=== PATIENT | female | born 1955 | race Caucasian/White ===

== ENCOUNTER 2016-07-15 14:02 | Emergency (ER) | payer OTHER ==
[~2016-07-15] VITALS: Ht 157.5 cm; Wt 45.0 kg
[~2016-07-15 14:02] MED LIST: BENT20TA PO; BENZ100 PO; DIAZ10TA PO; FURO20TA PO; LOMO PO; LOVA20TA PO; NITR0.4S SL; OXYC1SOL5 PO; POTA-267 PO
[2016-07-15 14:05] VITALS: BP 111/85; PULSE 93; RESP 12; TEMP 98.1; O2SAT 96
== END 2016-07-15 23:13 | disposition left against medical advice (07) ==
LOC: NED 14:02
DX: R68.89 Other general symptoms and signs (principal); Z53.21 Procedure and treatment not carried out due to patient leaving prior to being seen by health care provider
CPT/HCPCS: 99281

== ENCOUNTER 2016-07-22 15:54 | Emergency (ER) | payer OTHER ==
[~2016-07-22] VITALS: Ht 157.5 cm; Wt 40.0 kg
[2016-07-22 15:57] VITALS: BP 106/60; PULSE 93; RESP 14; TEMP 97.5; O2SAT 95
[2016-07-22] MEDS ORDERED: ACETAMINOPHEN/HYDROcodone 325 MG/10 MG TAB PO ONE (19:15)
[2016-07-22] MEDS ORDERED: SODIUM CHLORIDE 0.9% FLUSH 5 ML FLUSH IVF PRN (19:15)
--- NOTE | 2016-07-22 19:17 | PD ---
HPI Chief Complaint: General Weakness Time Seen by Provider: 19:02 Travel History International Travel<30 days: No Contact w/Intl Traveler<30days: No Traveled to known affect area: No History of Present Illness HPI This is a 60-year-old female who presents today from home with complaints of generalized malaise and shortness breath 1 month. The patient has a history of chronic back pain, hyperlipidemia, COPD. She states that she is also complaining of severe back pain. She reports that she has not seen her pain management doctor because she chose to go to her primary care physician instead of her pain management physician. She states that she's not had her hydrocodone for several days. When asked about her shortness of breath, patient reports that she can only walk a few feet before feeling as though she cannot pass out. She denies any chest pain, chest pressure. She does report that she's had loose stools times several days. She states that she's been taking Lomotil for this. She denies any dysuria, urgency, frequency. She states her urine output has been normal. She does report that her diet is lacking and she does not feel as though she needs or wants to eat. He does report nausea although denies any vomiting. The patient does report a 1 year history of weight loss and reports one year ago she was a size 9 and now she is aside 0. PFSH Past Medical History Arthritis: Yes Asthma: No Blood Disorders: No Heart Rhythm Problems: Yes (TACHYCARDIA) Cancer: No Cardiovascular Problems: Yes High Cholesterol: No Chemotherapy: No Chest Pain: Yes Congestive Heart Failure: No COPD: No Endocrine: No Gastrointestinal Disorders: Yes (ibs colitis) GERD: No Genitourinary: No Hepatitis: No Hiatal Hernia: No Hypertension: Yes Immune Disorder: No Kidney Stones: No Musculoskeletal: Yes Neurologic: No Psychiatric: No Respiratory: Yes Myocardial Infarction: No Radiation Therapy: No Renal Failure: No Sleep Apnea: No Ulcer: No Past Surgical History Abdominal Surgery: Yes (HYSTERECTOMY) AICD: No Arteriovenous Shunt: No Cardiac Surgery: No Cholecystectomy: Yes Ear Surgery: No Endocrine Surgery: No Eye Surgery: No Genitourinary Surgery: No Gynecologic Surgery: Yes Hysterectomy: Yes Insulin Pump: No Joint Replacement: No Oral Surgery: No Pacemaker: No Thoracic Surgery: Yes (3 LUNG SURGERIES) Other Surgery: Yes ("BACK SURGERY" X 3) Social History Alcohol Use: No Tobacco Use: Yes (TWO PACKS A DAY) Substance Use: No Allergies-Medications (Allergen,Severity, Reaction): Coded Allergies: Morphine (Verified Allergy, Severe, Fatigue, 07/22/16) Reported Meds & Prescriptions Reported Meds & Active Scripts Active Lortab (Hydrocodone-Acetaminophen) 10-325 Mg Tab 1 Tab PO Q6H PRN Reported Mirtazapine 30 Mg Tab 30 Mg PO HS Advair Diskus Inh (Fluticasone-Salmeterol Inh) 100-50 Mcg/Blist Aer 1 Puff INH BID Rinse mouth after use. Simvastatin 20 Mg Tab 20 Mg PO DAILY Diazepam 10 Mg Tab 10 Mg PO HS PRN Nitrostat SL (Nitroglycerin) 0.4 Mg Subl 0.4 Mg SL DIRECTED PRN 1 tablet under the tongue as needed for chest pain. Repeat every 5 minutes for a total of 3 DOSES or call 911 if NO relief. Alendronate (Alendronate Sodium) 70 Mg Tab 70 Mg PO Q7D Hydrocodone-Acetaminophen 10-325 mg Tab 1 Tab PO Q4H PRN Tizanidine (Tizanidine HCl) 4 Mg Cap 4 Mg PO TID Diphenoxylate-Atropine 2.5-0.025 Mg Tab 1 Tab PO Q6H PRN Oscal 500/200 D-3 (Calcium Carbonate-Vitamin D) 500-200 Mg-Unit Tab 1 Tab PO BID Trazodone (Trazodone HCl) 300 Mg Tab 300 Mg PO HS Review of Systems Except as stated in HPI: all other systems reviewed are Neg General / Constitutional: No: Fever, Chills HENT: Positive: Lightheadedness, No: Headaches Cardiovascular: Positive: Tachycardia (reports), No: Chest Pain or Discomfort , Palpitations Respiratory: Positive: Shortness of Breath, No: Cough, Wheezing Gastrointestinal: Positive: Nausea, No: Vomiting, Abdominal Pain Genitourinary: No: Urgency, Frequency, Dysuria Musculoskeletal: Positive: Weakness (generalized), Pain (chronic back pain) Skin: No Rash, No Itching Neurologic: Positive: Weakness (and relies), No: Syncope (although feels as though she is in the past), Headache, Change in Mentation Psychiatric: Positive: Anxiety (history of) Physical Exam Narrative GENERAL: Thin appearing female in no acute respiratory distress. SKIN: Warm and dry. HEAD: Atraumatic. Normocephalic. EYES: No scleral icterus. No injection or drainage. ENT: Mucous membranes pink and moist. NECK: Trachea midline. No JVD. CARDIOVASCULAR: Rate in the 90s. No murmurs gallops or rubs appreciated RESPIRATORY: Fine crackles heard at the left base. No wheezes. GASTROINTESTINAL: Abdomen soft, non-tender, nondistended. Patient has mild tenderness to deep palpation in her left lower quadrant. No rebound or true guarding. MUSCULOSKELETAL: No obvious deformities. No edema. NEUROLOGICAL: Awake and alert. No obvious cranial nerve deficits. Motor grossly within normal limits. Normal speech. Data Data Last Documented VS Vital Signs Date Time Temp Pulse Resp B/P Pulse Ox O2 Delivery O2 Flow Rate FiO2 07/22/16: 97 Room Air 07/22/16:23 97.9 80 18 118/58 Orders Complete Blood Count With Diff (07/22/16 19:03) Comprehensive Metabolic Panel (07/22/16 19:) Ckmb (Isoenzyme) Profile (07/22/16 19:03) Troponin I (07/22/16 19:03) Arterial Blood Gas (Abg) (07/22/16 19:03) Urinalysis - C+S If Indicated (07/22/16 19:03) Iv Access Insert/Monitor (07/22/16 19:03) Electrocardiogram (07/22/16 19:03) Ecg Monitoring (07/22/16 19:03) Oximetry (07/22/16 19:03) Oxygen Administration (07/22/16 19:03) Chest, Pa & Lat (07/22/16 19:03) Sodium Chloride 0.9% Flush (Ns Flush) (07/22/16 19:15) Acetamin-Hydrocod 325-10 Mg ([place] 10-32 (07/22/16 19:15) Resp Lab Draw Arterial Punctur (07/22/16 ) Labs Laboratory Tests Test 07/22/16 07/22/16 07/22/16 19:25 19:35 20:20 Blood Gas Puncture Site LT BRACHIAL Blood Gas Patient Temperature 98.6 Blood Gas HCO3 23 mmol/L Blood Gas Base Excess -0.7 mmol/L Blood Gas Oxygen Saturation 91 % Arterial Blood pH 7.45 Arterial Blood Partial 33 mmHg Pressure CO2 Arterial Blood Partial 76 mmHG Pressure O2 Arterial Blood Oxygen Content 16.9 Vol % Arterial Blood 3.6 % Carboxyhemoglobin Arterial Blood Methemoglobin 2.0 % Blood Gas Hemoglobin 13.3 G/DL Oxygen Delivery Device ROOM AIR Blood Gas Inspired Oxygen 21 % White Blood Count 10.0 TH/MM3 Red Blood Count 4.11 MIL/MM3 Hemoglobin 12.9 GM/DL Hematocrit 37.2 % Mean Corpuscular Volume 90.4 FL Mean Corpuscular Hemoglobin 31.3 PG Mean Corpuscular Hemoglobin 34.6 % Concent Red Cell Distribution Width 14.6 % Platelet Count 345 TH/MM3 Mean Platelet Volume 7.7 FL Neutrophils (%) (Auto) 61.2 % Lymphocytes (%) (Auto) 29.7 % Monocytes (%) (Auto) 6.5 % Eosinophils (%) (Auto) 1.8 % Basophils (%) (Auto) 0.8 % Neutrophils # (Auto) 6.2 TH/MM3 Lymphocytes # (Auto) 3.0 TH/MM3 Monocytes # (Auto) 0.7 TH/MM3 Eosinophils # (Auto) 0.2 TH/MM3 Basophils # (Auto) 0.1 TH/MM3 CBC Comment DIFF FINAL Differential Comment Sodium Level 137 MEQ/L Potassium Level 3.8 MEQ/L Chloride Level 106 MEQ/L Carbon Dioxide Level 23.6 MEQ/L Anion Gap 7 MEQ/L Blood Urea Nitrogen 12 MG/DL Creatinine 0.61 MG/DL Estimat Glomerular Filtration 100 ML/MIN Rate Random Glucose 93 MG/DL Calcium Level 8.4 MG/DL Total Bilirubin 0.2 MG/DL Aspartate Amino Transf 14 U/L (AST/SGOT) Alanine Aminotransferase 11 U/L (ALT/SGPT) Alkaline Phosphatase 80 U/L Total Creatine Kinase 46 U/L Troponin I LESS THAN 0.02 NG/ML Total Protein 6.7 GM/DL Albumin 2.7 GM/DL Urine Color YELLOW Urine Turbidity CLEAR Urine pH 5.5 Urine Specific [place] 1.033 Urine Protein NEG mg/dL Urine Glucose (UA) NEG mg/dL Urine Ketones 10 mg/dL Urine Occult Blood NEG Urine Nitrite NEG Urine Bilirubin NEG Urine Urobilinogen 2.0 MG/DL Urine Leukocyte Esterase NEG Urine RBC LESS THAN 1 /hpf Urine WBC 1 /hpf Urine Squamous Epithelial <1 /hpf Cells Urine Hyaline Casts 1 /lpf Urine Mucus FEW /lpf Microscopic Urinalysis Comment CULT NOT INDICATED MDM Medical Decision Making Medical Screen Exam Complete: Yes Emergency Medical Condition: Yes Differential Diagnosis UTI versus pneumonia versus COPD exacerbation Narrative Course 60-year-old female with history of COPD, presents here with complaints of large amount also over one year and general malaise and mild shortness of breath over the last week. The patient denies any fevers, chills. The patient is nontoxic- appearing on my examination. Laboratory tests are within normal limits. Chest x-ray shows evidence of old disease that is stable from previous x-rays. The patient is nontoxic-appearing on my examination. She is seen by her primary care physician who is in the process of ordering some outpatient tests including carotid ultrasounds and cardiac evaluation. At this point the patient is nontoxic and does not appear to need any type of admission or observation. She has been off of her pain medicines for several days and I've told her that I will write her prescription for 10 of her Lortab tens. She is to follow up with her primary care physician within one to 2 days. Diagnosis Primary Impression: COPD (chronic obstructive pulmonary disease) Additional Impressions: Abnormal weight loss Chronic pain syndrome Patient Instructions: Narcotic given in the ED Additional Instructions: Follow up with her primary care physician for further testing including your reported weight loss. Return if fevers, chills, shortness of breath, or anything else that concerns you. Med/Other Pt SpecificInfo: Prescription(s) given Scripts Hydrocodone-Acetaminophen (Lortab)10-325 Mg Tab1 Tab PO Q6H PRN (PAIN) #10 TAB Ref 0 Prov:Daniele Martin MD 07/22/16 Disposition: 01 DISCHARGE HOME Condition: Stable Daniele Martin MD Jul 22, 2016 19:17
[2016-07-22 19:23] VITALS: BP 118/58; PULSE 80; RESP 18; TEMP 97.9; O2SAT 97; O2SAT 99
[2016-07-22 19:40] LABS: BLOOD GAS BASE EXCESS -0.7 mmol/L (-2-2); BLOOD GAS CARBOXYHEMOGLOBIN 3.6 % (0-4); BLOOD GAS HCO3 23 mmol/L (22-26); BLOOD GAS O2 HGB SATURATION 91 % (90-100); BLOOD GAS OXYGEN CONTENT 16.9 Vol % (12.0-20.0); BLOOD GAS PCO2 33 mmHg (38-42); BLOOD GAS PO2 76 mmHG (61-120); BLOOD GAS TOTAL HGB 13.3 G/DL (12.0-16.0); CRITICAL VALUE NO; DRAW SITE LT BRACHIAL; FIO2 21 %; NUMBER OF ARTERIAL PUNCTURES 1; OXYGEN DEVICE ROOM AIR; STAT YES; TEMP CORR TO 98.6
[2016-07-22 19:56] LABS: AUTOMATED NEUTROPHIL # 6.2 TH/MM3 (1.8-7.7); BASOPHIL # 0.1 TH/MM3 (0-0.2); BASOPHIL % 0.8 % (0.0-2.0); EOSINOPHIL # 0.2 TH/MM3 (0-0.4); EOSINOPHIL % 1.8 % (0.0-4.0); HEMATOCRIT 37.2 % (35.0-46.0); HEMO FLAGS DIFF FINAL; LYMPH % 29.7 % (9.0-44.0); MEAN CELL VOLUME 90.4 FL (80.0-100.0); MEAN CORPUSCULAR HEMOGLOBIN 31.3 PG (27.0-34.0); MEAN CORPUSCULAR HGB CONC 34.6 % (32.0-36.0); MONO % 6.5 % (0.0-8.0); NEUT % 61.2 % (16.0-70.0); PLATELET COUNT 345 TH/MM3 (150-450); RED BLOOD COUNT 4.11 MIL/MM3 (4.00-5.30); RED CELL DISTRIBUTION WIDTH 14.6 % (11.6-17.2)
[2016-07-22] MEDS ORDERED: DIPH2.5T14 PO (20:08)
[2016-07-22] MEDS ORDERED: OSCA200T PO (20:08)
[2016-07-22] MEDS ORDERED: TRAZ300T2 PO (20:08)
[2016-07-22] MEDS ORDERED: HYDR-3583 PO (20:09)
[2016-07-22] MEDS ORDERED: ALEN1TAB48 PO (20:09)
[2016-07-22] MEDS ORDERED: TIZA4CAP3 PO (20:09)
[2016-07-22] MEDS ORDERED: NITR0.4S SL (20:10)
[2016-07-22] MEDS ORDERED: SIMV20TA PO (20:11)
[2016-07-22] MEDS ORDERED: ADVA100A INH (20:11)
[2016-07-22] MEDS ORDERED: DIAZ10TA PO (20:11)
[2016-07-22] MEDS ORDERED: MIRT30TA PO (20:12)
--- NOTE | 2016-07-22 20:12 | RADRPT ---
EXAM DATE/TIME: 07/22/2016 19:50 [facility] COMPARISON: CHEST PA & LAT, July 20, 2013, 12:52. INDICATIONS : Shortness of breath, weakness, and chest pain. MEDICAL HISTORY : Hypertension. Chronic obstructive pulmonary disease. History of pneumothorax. Emphysema. SURGICAL HISTORY : Mitral valve prolapse. Bilateral upper lobe removal. ENCOUNTER: Initial ACUITY: 1 day PAIN SCORE: 10/10 LOCATION: Left chest FINDINGS: Lung willi are seen in the upper lungs bilaterally. There continues to be increased density in the right upper lung likely related to volume loss and pleural fluid following the left upper lung surge ry. There is chronic interstitial disease at the mid and lower lungs bilaterally. There is minimal b lunting of the right costophrenic angle. This appearance is unchanged. A significant effusion is not clearly identified. The heart size is normal. There continue to be leads seen over the midthoracic spine. Clips are seen in the upper abdomen. CONCLUSION: Stable changes with chronic interstitial disease and scarring in the mid and lower zoie ngs and lung willi in the upper lungs and volume loss with pleural fluid over the left apex. All t hese findings are stable. A new or acute abnormality is not seen. Guero Anne MD on July 22, 2016 at 20:00 Board Certified Radiologist. This report was verified electronically.
[2016-07-22 20:31] LABS: ALKALINE PHOSPHATASE 80 U/L (45-117); ALT (GPT) 11 U/L (10-53); ANION GAP 7 MEQ/L (5-15); AST (GOT) 14 U/L (15-37); BICARBONATE 23.6 MEQ/L (21.0-32.0); BLOOD UREA NITROGEN 12 MG/DL (7-18); CHLORIDE 106 MEQ/L (98-107); CREATINE KINASE 46 U/L (26-192); GLOMERULAR FILTRATION RATE 100 ML/MIN (>89); POTASSIUM 3.8 MEQ/L (3.5-5.1); SODIUM (NA) 137 MEQ/L (136-145); TOTAL BILIRUBIN ADULT 0.2 MG/DL (0.2-1.0)
[2016-07-22 20:46] LABS: BLOOD, URINE NEG (NEG); COMMENT (UR) CULT NOT INDICATED; CULTURE IF INDICATED CULT NOT INDICATED; GLUCOSE,URINE NEG (NEG); HYALINE CAST, URINE 1 /lpf (RARE); KETONE, URINE 10 mg/dL (NEG); MUCUS URINE FEW /lpf (OCC); NITRITE,URINE NEG (NEG); PH, URINE 5.5 (5.0-8.5); SQUAMOUS EPITHELIAL CELL URINE <1 /hpf (0-5); URINE COLOR YELLOW (YELLW/STRAW)
[2016-07-22] MEDS ORDERED: HYDR-3535 PO (21:39)
--- NOTE | 2016-07-23 08:42 | EKG ---
Date Performed: 07/22/2016 Time Performed: 19:20:39 PTAGE: 60 years EKG: Sinus rhythm WITH SINUS ARRHYTHMIA WITH SHORT NH INTERVAL BORDERLINE RIGHT AXIS DEVIATION BORDERLINE ECG PREVIOUS TRACING : 09/16/2005 07.04 DOCTOR: Kiet Flores Interpretating Date/Time 07/23/2016 08:39:01
== END 2016-07-22 22:13 | disposition home or self-care (01) ==
LOC: NEPE 15:54
DX: J44.9 Chronic obstructive pulmonary disease, unspecified (principal); R63.4 Abnormal weight loss; G89.4 Chronic pain syndrome; E78.5 Hyperlipidemia, unspecified; I49.8 Other specified cardiac arrhythmias; I10 Essential (primary) hypertension; F17.210 Nicotine dependence, cigarettes, uncomplicated
CPT/HCPCS: 36600; 71020; 80053; 81001; 82550; 82805; 84484; 85025; 93005

== ENCOUNTER → 2016-10-09 | Day surgery (SDC) | payer OTHER ==
[~2016-10-09] VITALS: Ht 157.5 cm; Wt 47.3 kg
[~2016-10-09] MED LIST changes: +ADVA100A INH; +ALEN1TAB48 PO; -BENT20TA PO; -BENZ100 PO; +CHLORHEXIDINE GLUCONATE 2 % 1 PACK (2 CLOTHS) TOPICAL PRN; +DIPH2.5T14 PO; +EPINEPHrine HCL (1:1000) 1 MG/ML VIAL ONE; -FURO20TA PO; +HYDR-3535 PO; +INSULIN HUMAN REGULAR 1,000 UNITS/10 ML VIAL SQ PRN; +LACTATED RINGER'S 1000 ML IV PRN; +LIDOCAINE HCL 2% 50 ML VIAL ONE; -LOMO PO; -LOVA20TA PO; +METOPROLOL TARTRATE 25 MG TAB PO PRN; +MIRT30TA PO; +OSCA200T PO; -OXYC1SOL5 PO; -POTA-267 PO; +POVIDONE IODINE 5% (ANTISEPSIS KIT) 4 APPLICATIONS EACH NARE PRN; +RESP: ALBUTEROL 2.5 MG/3 ML NEB (SCH) INH; +RESP: LIDOCAINE HCL 4% TOPICAL 4 ML KIT NEB NEB SCH; +SIMV20TA PO; +SODIUM CHLORID 0.9% 500 ML IV PRN; +SODIUM CHLORIDE 0.9% 20 ML VIAL ONE; +TIZA4CAP3 PO; +TRAZ300T2 PO
[2016-10-09 05:35] VITALS: BP 113/67; PULSE 104; RESP 16; TEMP 99; O2SAT 96
[2016-10-09 07:04] LABS: APTT (PATIENT) 28.3 SEC (24.3-30.1); INTERNATIONAL NORMALIZED RATIO 0.9 RATIO; PROTHROMBIN TIME - PATIENT 10.2 SEC (9.8-11.6)
[2016-10-09 07:13] LABS: AUTOMATED NEUTROPHIL # 6.6 TH/MM3 (1.8-7.7); BASOPHIL # 0.1 TH/MM3 (0-0.2); BASOPHIL % 0.6 % (0.0-2.0); EOSINOPHIL # 0.2 TH/MM3 (0-0.4); EOSINOPHIL % 1.6 % (0.0-4.0); HEMATOCRIT 42.7 % (35.0-46.0); HEMO FLAGS DIFF FINAL; LYMPHOCYTE # 2.3 TH/MM3 (1.0-4.8); MEAN CELL VOLUME 89.3 FL (80.0-100.0); MEAN CORPUSCULAR HEMOGLOBIN 30.1 PG (27.0-34.0); MEAN CORPUSCULAR HGB CONC 33.7 % (32.0-36.0); MONO % 8.1 % (0.0-8.0); NEUT % 66.7 % (16.0-70.0); PLATELET COUNT 325 TH/MM3 (150-450); RED BLOOD COUNT 4.78 MIL/MM3 (4.00-5.30); RED CELL DISTRIBUTION WIDTH 14.7 % (11.6-17.2); WHITE BLOOD COUNT 9.9 TH/MM3 (4.0-11.0)
[2016-10-09 07:25] VITALS: BP 104/63; PULSE 80; RESP 16; TEMP 98.5; O2SAT 94
--- NOTE | 2016-10-09 15:23 | EKG ---
Date Performed: 10/09/2016 Time Performed: 06:15:24 PTAGE: 60 years EKG: Sinus rhythm BORDERLINE RIGHT AXIS DEVIATION LOW QRS VOLTAGE IN PRECORDIAL LEADS BORDERLINE ECG PREVIOUS TRACING : 07/22/2016 19.20 DOCTOR: Yuval Lovell Interpretating Date/Time 10/09/2016 15:21:40
== END | disposition home or self-care (01) ==
LOC: HSDC 05:30
PROVIDERS: ATTEND Internal Medicine Sleep Medicine
DX: J98.4 Other disorders of lung (principal); Z01.818 Encounter for other preprocedural examination; Z01.810 Encounter for preprocedural cardiovascular examination; Z53.09 Procedure and treatment not carried out because of other contraindication
CPT/HCPCS: 85025; 85610; 85730; 93005; G0463; 99211; J0171

== ENCOUNTER 2018-01-18 10:25 | Inpatient (IN) ==
[2018-01-18] MEDS ORDERED: Sod Chloride 0.9% Inj 1,000 ML IV.SIG ONE (10:58)
[2018-01-18] MEDS ORDERED: MethylPREDNISolone Sod Succinate Inj 125 MG/2 ML Vial IV.PUSH ONE (10:59)
--- NOTE | 2018-01-18 11:12 | ED ---
HPI General Chief Complaint: Fever Stated Complaint: fever/blood pressure Time Seen by Provider: 01/18/18 10:50 Source: patient Limitations: no limitations History of Present Illness HPI Narrative: Patient is a 62-year-old female who presents to the ER for evaluation of fever with shortness of breath. As per patient, she is currently being worked up for lung cancer with Dr. Goyal. Reports that she was NPO last night for her bronchoscopy with biopsies this morning. After her bronchoscopy, she was febrile and hypotensive. Reports that her temperature went up to 102.2. Patient was not given any anticoagulants. Patient reports that she has had a cough which is productive and she is bringing up thick yellow mucus. Patient is a tobacco smoker, patient was sent to the emergency room for possible admission to the hospital for evaluation of possible pneumonia. Patient currently complains of shortness of breath. Denies any chest pain. Related Data Home Medications Medication Instructions Recorded Confirmed albuterol sulfate [Ventolin HFA] 2 puff INHALATION QID PRN 01/18/18 01/18/18 alendronate 70 mg PO QWEEK 01/18/18 01/18/18 diazepam 5 mg PO TID 01/18/18 01/18/18 diphenoxylate-atropine 1 tab PO Q6-8H PRN 01/18/18 01/18/18 mirtazapine 45 mg PO DAILY 01/18/18 01/18/18 nitroglycerin 0.4 mg SUBLINGUAL Q5-15M PRN 01/18/18 01/18/18 simvastatin 20 mg PO QPM 01/18/18 01/18/18 tizanidine 4 mg PO BID 01/18/18 01/18/18 Allergies Allergy/AdvReac Type Severity Reaction Status Date / Time morphine Allergy Severe Fatigue Verified 01/18/18 13:33 MRI PRECAUTION Allergy Unknown METAL Uncoded 01/18/18 13:[address] Review of Systems ROS: all other systems reviewed are negative [facility] Medical History Medical History COPD (chronic obstructive pulmonary disease) (Acute) Hyperlipidemia (Acute) Irritable bowel syndrome (IBS) (Acute) Osteopenia (Acute) Surgical History Surgical History H/O hysterectomy for benign disease (Acute) History of cholecystectomy (Acute) Social History Social History Substance History: No History of Abuse Second Hand Smoke Exposure: Yes Smoking Status: Current every day smoker Tobacco Type: Cigarettes How Often Do You Have a Drink Containing Alcohol: 2 to 4 times a month Recent Travel in [facility] within the Last 8 Weeks: No Recent Out of Country Travel within the Last 8 Weeks: No Immunization History Tetanus Immunization: Unsure Hx Influenza Vaccine This Season: No Exam Narrative Exam Narrative: GENERAL: moderate distress SKIN: Focused skin assessment warm/dry. HEAD: Atraumatic. Normocephalic. EYES: Pupils equal and round. No scleral icterus. No injection or drainage. ENT: No nasal bleeding or discharge. Mucous membranes pink and moist. NECK: Trachea midline. No JVD. CARDIOVASCULAR: Regular rate and rhythm. No murmur appreciated. RESPIRATORY: No accessory muscle use. Tight breath sounds equal bilaterally with scattered wheezing. GASTROINTESTINAL: Abdomen soft, non-tender, nondistended. Hepatic and splenic margins not palpable. MUSCULOSKELETAL: No obvious deformities. No clubbing. No cyanosis. No edema. NEUROLOGICAL: Awake and alert. No obvious cranial nerve deficits. Motor grossly within normal limits. Normal speech. PSYCHIATRIC: Appropriate mood and affect; insight and judgment normal. Course Initial Documented Vital Signs Temperature 98.8 F 01/18/18 10:26 Pulse Rate 93 H 01/18/18 10:26 Respiratory Rate 18 01/18/18 10:26 Blood Pressure 98/53 L 01/18/18 10:26 Pulse Oximetry 95 01/18/18 10:26 Last Documented Vital Signs Temperature 99.3 F 01/18/18 13:00 Pulse Rate 97 H 01/18/18 13:00 Respiratory Rate 18 01/18/18 13:00 Blood Pressure 99/56 L 01/18/18 13:00 Pulse Oximetry 94 L 01/18/18 13:00 Medical Decision Making MDM Narrative Medical decision making narrative: During the course of the patients emergency department visit, the patients history, examination, and differential diagnosis were reviewed with the patient. The patient was placed on a surveillance system monitor with oximetry and frequent blood pressure monitoring. The patient had an IV access obtained and blood work sent for analysis. The patient was initially provided IV fluids. Patient is not febrile here in the emergency room, she has not received any antipyretics today. A septic workup was initiated, she has been given IV fluids in the ER Patient with a white blood cell count of 20,000, lactic acid 0.8, x-ray of the chest shows likely infiltrate involving left lower lung Patient with sepsis criteria, patient will require admission to the hospital. Patient was given a course of Zosyn as well as azithromycin. Patients blood pressure has improved and is currently 100/[address] Mayfield who accepts pt to service patient will be admitted to the hospital for treatment of severe sepsis Differential Diagnosis Differential Diagnosis: NMS, sepsis, pneumonia, electrolyte abnormality Medical Records Medical records reviewed: Yes I reviewed the patient's medical records. Lab Data Result diagrams: 01/18/18 10:59 01/18/18 10:59 Lab Results 01/18/18 01/18/18 01/18/18 Range/Units 10:59 10:59 10:59 WBC 20.4 H (4.0-11.0) th/mm3 RBC 3.47 L (4.00-5.30) mil/mm3 Hgb 10.5 L (11.6-15.3) gm/dL Hct 29.9 L (35.0-46.0) % MCV 86.2 (80.0-100.0) fL MCH 30.2 (27.0-34.0) pg MCHC 35.0 (32.0-36.0) % RDW 15.3 (11.6-17.2) % Plt Count 449 (150-450) th/mm3 MPV 7.1 (7.0-11.0) fL Neut % (Auto) 96.9 H (16.0-70.0) % Lymph % (Auto) 2.0 L (9.0-44.0) % Weber % (Auto) 1.0 (0.0-8.0) % Eos % (Auto) 0.0 (0.0-4.0) % Baso % (Auto) 0.1 (0.0-2.0) % Neut # (Auto) 19.8 H (1.8-7.7) th/mm3 Lymph # (Auto) 0.4 L (1.0-4.8) th/mm3 [place] # (Auto) 0.2 (0.0-0.9) th/mm3 Eos # (Auto) 0.0 (0.0-0.4) th/mm3 Baso # (Auto) 0.0 (0.0-0.2) th/mm3 WBC Differential . Differential Comment Auto diff final Sodium 140 (136-145) meq/L Potassium 3.8 (3.5-5.1) meq/L Chloride 107 (98-107) meq/L Carbon Dioxide 26.3 (21.0-32.0) meq/L Anion Gap 7 (5-15) meq/L BUN 9 (7-18) mg/dL Creatinine 0.49 L (0.50-1.00) mg/dL Estimated GFR Greater than 89 (>89) mL/min Random Glucose 134 H (74-106) mg/dL Lactic Acid 0.8 (0.4-2.0) mmol/L Calcium 7.8 L (8.5-10.1) mg/dL Total Bilirubin 0.2 (0.2-1.0) mg/dL AST 19 (15-37) U/L ALT 10 (10-53) U/L Alkaline Phosphatase 122 H (45-117) U/L Total Protein 6.3 L (6.4-8.2) g/dL Albumin 1.9 L (3.4-5.0) g/dL Imaging Data Radiologist's impression: Chest X-Ray 01/18/18 10:55 CONCLUSION: Extensive chronic changes bilaterally. Likely infiltrate involving left lower lung. Discharge Plan Discharge Disposition Patient Disposition: 30 Still Patient Discharge Details Diagnosis: Sepsis Physicians Team ED Provider: Susan Jones Primary Care Provider: Connor Dunne V Rxs /Orders / Referrals /Forms Prescriptions: No Action alendronate 70 mg Tablet 70 mg PO QWEEK RF: 0 simvastatin 20 mg Tablet 20 mg PO QPM RF: 0 mirtazapine 45 mg Tablet 45 mg PO DAILY RF: 0 albuterol sulfate [Ventolin HFA] 90 mcg/actuation Hfa Aerosol Inhaler 2 puff INHALATION QID PRN (Reason: Adequate Ventilation) RF: 0 diazepam 5 mg Tablet 5 mg PO TID RF: 0 tizanidine 4 mg Capsule 4 mg PO BID RF: 0 diphenoxylate-atropine 2.5-0.025 mg Tablet 1 tab PO Q6-8H PRN (Reason: Diarrhea) RF: 0 nitroglycerin 0.4 mg Tablet, Sublingual 0.4 mg SUBLINGUAL Q5-15M PRN (Reason: Chest Pain) RF: 0 Status ED Status: Admitted Patient
[2018-01-18 11:30] LABS: Baso % (Auto) 0.1 % (0.0-2.0); Hematocrit 29.9 % (35.0-46.0); Hemoglobin 10.5 gm/dL (11.6-15.3); Lymph # (Auto) 0.4 th/mm3 (1.0-4.8); Mean Corpuscular Hemoglobin 30.2 pg (27.0-34.0); Mean Corpuscular Volume 86.2 fL (80.0-100.0); Mean Platelet Volume 7.1 fL (7.0-11.0); Mono # (Auto) 0.2 th/mm3 (0.0-0.9); Neut # (Auto) 19.8 th/mm3 (1.8-7.7); Neut % (Auto) 96.9 % (16.0-70.0); Platelet Count 449 th/mm3 (150-450); Red Blood Count 3.47 mil/mm3 (4.00-5.30); Red Cell Distribution Width 15.3 % (11.6-17.2); White Blood Count 20.4 th/mm3 (4.0-11.0)
--- NOTE | 2018-01-18 11:32 | XR ---
EXAM DATE: 01/18/2018 11:25 AM EDT AGE/SEX: 62 years / Female INDICATIONS: Fever and shortness of breath. Patient also complains of back pain. CLINICAL DATA: This is the patient's initial encounter. Patient reports that signs and symptoms have been present for 1 day and indicates a pain score of 0/10. MEDICAL/SURGICAL HISTORY: Hypertension. Chronic obstructive pulmonary disease. Emphysema. Hi story of pneumothorax. . Mitral valve. Bilateral upper lobe removal. Back stimulator. COMPARISON: [facility], XR CHEST PA AND LAT, 11/24/2017. . FINDINGS: . There is left perihilar scarring and retraction noted. There is increased opacity in the left lower chest in the remaining lung parenchyma which may reflect acute inflammatory infiltrate. On the contr alateral right side, scattered areas of pleural-parenchymal lung scarring are again noted. Baseline e mphysema. Cardiac contours are grossly unchanged. CONCLUSION: Extensive chronic changes bilaterally. Likely infiltrate involving left lower lung. Electronically signed by: Guero Hernandez MD 01/18/2018 11:31 AM EDT
[2018-01-18 11:41] LABS: Albumin 1.9 g/dL (3.4-5.0); Anion Gap 7 meq/L (5-15); Aspartate Aminotransferase 19 U/L (15-37); Blood Urea Nitrogen 9 mg/dL (7-18); Calcium 7.8 mg/dL (8.5-10.1); Carbon Dioxide 26.3 meq/L (21.0-32.0); Chloride 107 meq/L (98-107); Glomerular Filtration Rate Greater Than 89 mL/min (>89); Glucose,Random 134 mg/dL (74-106); Potassium 3.8 meq/L (3.5-5.1); Sodium 140 meq/L (136-145)
[2018-01-18 11:44] LABS: Alanine Aminotransferase 10 U/L (10-53); Alkaline Phosphatase 122 U/L (45-117); Total Protein 6.3 g/dL (6.4-8.2)
[2018-01-18] MEDS ORDERED: Azithromycin Inj 500 MG in Sodium Chlor 0.9% Inj 250 ML IV.SIG ONE (12:28)
[2018-01-18] MEDS ORDERED: Piperacil/Tazo 3.375 GM Premix 50 ML IV.SIG ONE (12:29)
[2018-01-18] MEDS ORDERED: Temazepam 15 MG Capsule PO PRN (14:19)
[2018-01-18] MEDS ORDERED: Acetaminophen 325 MG Tablet PO PRN (14:19)
--- NOTE | 2018-01-18 15:02 | P.HP ---
History of Present Illness Primary Care Physician: Connor Dunne MD Chief Complaint: Fevers, shortness of breath and cough production History of Present Illness: 62-year-old female with a history of nicotine dependence, COPD, hypertension who for recently diagnosed lung mass for which patient underwent bronchoscopy today January 18, 2018 however was sent to the ED for evaluation of possible sepsis due to community-acquired pneumonia. Patient reports on and off weeks of febrile episodes associated with cough production described as yellow sputum as well as night sweats and significant weight loss. On arrival in the ED, patient was hypotensive for which she was given IV fluid hydration and started on IV antibiotics. She denies any dysuria, GI bleed. - Diagnosis (1) Sepsis (2) Community acquired bacterial pneumonia (3) Hypotension Inpatient Certification: I certify that the inpatient services were ordered in accordance with Medicare regulations governing the order. This includes certification that hospital inpatient services are reasonable and necessary and in the case of services not specified as inpatient-only under 42 CFR 419.22(n), that they are appropriately provided as inpatient services in accordance to with the 2-midnight benchmark under 43 CFR 412.3(e) Estimated Total Length of Stay (Days): 3 Plans for Post Hospital Care: Not yet determined Review of Systems All other systems reviewed negative except as stated in HPI PMFSH - History History Provided By: Patient - Medical History Medical History: Medical History (Last Reviewed 01/18/18 @ 11:16 by Susan Jones) COPD (chronic obstructive pulmonary disease) Hyperlipidemia Irritable bowel syndrome (IBS) Osteopenia - Surgical History Surgical History: Surgical History (Last Reviewed 01/18/18 @ 11:16 by Susan Jones) H/O hysterectomy for benign disease History of cholecystectomy - Family History Family History: Family History (Last Updated 01/18/18 @ 14:57 by Jaun Mayfield MD) Other Family history of lung cancer - Tobacco History Second Hand Smoke Exposure: Yes Tobacco Use In Past 30 Days: Yes Smoking Status: Current every day smoker Tobacco Type: Cigarettes - Alcohol History How Often Do You Have a Drink Containing Alcohol: 2 to 4 times a month - Substance Use History Substance History: No History of Abuse - Travel History Recent Travel in the [place] Within the Last 8 Weeks: No Recent Travel Out of the Country Within the Last 8 Weeks: No - Immunization History Tetanus Immunization: Unsure Hx Influenza Vaccine This Season: No Medications and Allergies Active Medications: Active Medications Acetaminophen (Tylenol) 650 mg PO Q4H PRN PRN Reason: Temp > 100.4 Hydrocodone Bitart/Acetaminophen ([place] 5/325) 1 tab PO Q4H PRN PRN Reason: Pain 3-5 Hydrocodone Bitart/Acetaminophen ([place] 7.5/325) 1 tab PO Q4H PRN PRN Reason: Pain 6-10 Al Hydroxide/Mg Hydroxide (Milk Of Magnnoel Liq) 30 ml PO Q12H PRN PRN Reason: Mild Constipation Albuterol (Duoneb Neb (Luc)) 1 ampul NEB Q6HR WHILE AWAKE NEB LUC Albuterol (Duoneb Neb (Prn)) 1 ampul NEB Q2HR NEB PRN PRN Reason: SHORTNESS OF BREATH/WHEEZING Cefepime HCl 2,000 mg/ Sodium (Chloride) 100 mls @ 200 mls/hr IV.SIG Q8H [facility] Sodium Chloride (Ns Inj) 1,000 mls @ 100 mls/hr IV.CONT .Q10H [facility] Methylprednisolone Sodium Succinate (Solumedrol Inj) 20 mg IV.PUSH Q12HR LUC Ondansetron HCl (Zofran Inj) 4 mg IV.PUSH Q6H PRN PRN Reason: NAUSEA OR VOMITING Senna/Docusate Sodium (Agustina-Colace) 1 tab PO BID LUC Sennosides (Senokot) 17.2 mg PO Q12H PRN PRN Reason: Moderate Constipation Temazepam (Restoril) 15 mg PO HS PRN PRN Reason: INSOMNIA Allergies Allergy/AdvReac Type Severity Reaction Status Date / Time morphine Allergy Severe Fatigue Verified 01/18/18 13:33 MRI PRECAUTION Allergy Unknown METAL Uncoded 01/18/18 13:[address] Home Medications Medication Instructions Recorded Confirmed Type albuterol sulfate [Ventolin HFA] 2 puff INHALATION QID PRN 01/18/18 01/18/18 History alendronate 70 mg PO QWEEK 01/18/18 01/18/18 History diazepam 5 mg PO TID 01/18/18 01/18/18 History diphenoxylate-atropine 1 tab PO Q6-8H PRN 01/18/18 01/18/18 History mirtazapine 45 mg PO DAILY 08/14/18 08/14/18 History nitroglycerin 0.4 mg SUBLINGUAL Q5-15M PRN 01/18/18 01/18/18 History simvastatin 20 mg PO QPM 01/18/18 01/18/18 History tizanidine 4 mg PO BID 01/18/18 01/18/18 History Exam Vital signs: Vital Signs 01/18/18 10:26 01/18/18 10:35 01/18/18 11:07 Temperature 98.8 F 99.5 F Pulse Rate 93 H 89 88 Respiratory Rate 18 18 24 Blood Pressure 98/53 L 83/51 L Pulse Oximetry 95 97 01/18/18 11:18 01/18/18 11:20 01/18/18 11:22 Temperature 99.3 F Pulse Rate 92 H 101 H 102 H Respiratory Rate 24 20 Blood Pressure 100/55 L Pulse Oximetry 100 100 01/18/18 11:28 01/18/18 13:00 01/18/18 14:34 Temperature 99.3 F Pulse Rate 96 H 97 H Respiratory Rate 22 18 Blood Pressure 99/56 L Pulse Oximetry 94 L 97 01/18/18 14:51 Temperature Pulse Rate 90 Respiratory Rate 20 Blood Pressure 100/63 Pulse Oximetry 94 L Intake & Output 01/17/18 01/18/18 01/18/18 18:59 06:59 18:59 Weight 30.391 kg Narrative: GENERAL: NAD SKIN: Warm and dry. HEAD: Atraumatic. Normocephalic. EYES: Pupils equal and round. No scleral icterus. No injection or drainage. ENT: No nasal bleeding or discharge. Mucous membranes pink and moist. NECK: Trachea midline. No JVD. CARDIOVASCULAR: Regular rate and rhythm. RESPIRATORY: No accessory muscle use. Clear to auscultation. Breath sounds decrease bilaterally. +bilateral exp wheezings GASTROINTESTINAL: Abdomen soft, non-tender, nondistended. Hepatic and splenic margins not palpable. MUSCULOSKELETAL: Extremities without clubbing, cyanosis, or edema. No obvious deformities. NEUROLOGICAL: Awake and alert. No obvious cranial nerve deficits. Motor grossly within normal limits. Five out of 5 muscle strength in the arms and legs. Normal speech. PSYCHIATRIC: Appropriate mood and affect; insight and judgment normal. Results - Labs CBC & Chem 7: 01/18/18 10:59 01/18/18 10:59 Labs: Laboratory Results - last 24 hr 08/01/18/18 01/18/18 10:59 10:59 10:59 WBC 20.4 H RBC 3.47 L Hgb 10.5 L Hct 29.9 L MCV 86.2 MCH 30.2 MCHC 35.0 RDW 15.3 Plt Count 449 MPV 7.1 Neut % (Auto) 96.9 H Lymph % (Auto) 2.0 L [place] % (Auto) 1.0 Eos % (Auto) 0.0 Baso % (Auto) 0.1 Neut # (Auto) 19.8 H Lymph # (Auto) 0.4 L [place] # (Auto) 0.2 Eos # (Auto) 0.0 Baso # (Auto) 0.0 WBC Differential . Differential Comment Auto diff final Sodium 140 Potassium 3.8 Chloride 107 Carbon Dioxide 26.3 Anion Gap 7 BUN 9 Creatinine 0.49 L Estimated GFR Greater than 89 Random Glucose 134 H Lactic Acid 0.8 Calcium 7.8 L Total Bilirubin 0.2 AST 19 ALT 10 Alkaline Phosphatase 122 H Total Protein 6.3 L Albumin 1.9 L - Imaging Impressions Chest X-Ray 01/18/18 10:55 CONCLUSION: Extensive chronic changes bilaterally. Likely infiltrate involving left lower lung. Caprini VTE Risk Assessment Caprini VTE Risk Assessment: Moderate/High Risk (score >= 2) Caprini Risk Assessment Model: Point Value = 1 Point Value = 2 Point Value = 3 Point Value = 5 Age 41-60 Minor surgery BMI > 25 kg/m2 Swollen legs Varicose veins or History of unexplained or recurrent spontaneous Oral contraceptives or hormone replacement Sepsis (< 1 month) Serious lung disease, including pneumonia (< 1 month) Abnormal pulmonary function Acute myocardial infarction Congestive heart failure (< 1 month) History of inflammatory bowel disease Medical patient at bed rest Age 61-74 Arthroscopic surgery Major open surgery (> 45 min) Laparoscopic surgery (> 45 min) Malignancy Confined to bed (> 72 hours) Immobilizing plaster cast Central venous access Age >= 75 History of VTE Family history of VTE Factor V Leiden Prothrombin [id number] Lupus anticoagulant Anticardiolipin antibodies Elevated serum homocysteine Heparin-induced thrombocytopenia Other congenital or acquired thrombophilia Stroke (< 1 month) Elective arthroplasty Hip, pelvis, or leg fracture Acute spinal cord injury (< 1 month) Prophylaxis Regimen: Total Risk Factor Score Risk Level Prophylaxis Regimen 0-1 Low Early ambulation 2 Moderate Order ONE of the following: *Sequential Compression Device (SCD) *Heparin 5000 units SQ BID 3-4 Higher Order ONE of the following medications: *Heparin 5000 units SQ TID *Enoxaparin/Lovenox 40 mg SQ daily (WT < 150 kg, CrCl > 30 mL/min) *Enoxaparin/Lovenox 30 mg SQ daily (WT < 150 kg, CrCl > 10-29 mL/min) *Enoxaparin/Lovenox 30 mg SQ BID (WT < 150 kg, CrCl > 30 mL/min) AND/OR *Sequential Compression Device (SCD) 5 or more Highest Order ONE of the following medications: *Heparin 5000 units SQ TID (Preferred with Epidurals) *Enoxaparin/Lovenox 40 mg SQ daily (WT < 150 kg, CrCl > 30 mL/min) *Enoxaparin/Lovenox 30 mg SQ daily (WT < 150 kg, CrCl > 10-29 mL/min) *Enoxaparin/Lovenox 30 mg SQ BID (WT < 150 kg, CrCl > 30 mL/min) AND *Sequential Compression Device (SCD) Assessment and Plan - Assessment (1) Sepsis Code(s): A41.9 - Sepsis, unspecified organism Status: Acute (2) Community acquired bacterial pneumonia Code(s): J15.9 - Unspecified bacterial pneumonia Status: Acute (3) Hypotension Code(s): I95.9 - Hypotension, unspecified Status: Acute - Plan 62-year-old female with Sepsis: Source due to community-acquired pneumonia Status post azithromycin, Rocephin and azithromycin Start cefepime Community-acquired pneumonia associate with respiratory failure Chest x-ray noted and reviewed by me with finding representing likely infiltrate involving left lower lung Start cefepime, Mucinex Start Solu-Medrol 20 mg every 12 hours, bronchodilators maintain oxygen saturation above 92% Check sputum culture and monitor blood cultures Lung mass Status post bronchoscopy Consult patient's control engineer, Dr. Vo Hypotension Status post NS bolus in ED, monitor BP History of hypertension and other chronic medical conditions Resume outpatient medication except antihypertensive medications until BP improved DVT prophylaxis: Lovenox
--- NOTE | 2018-01-18 15:44 | ECG ---
Date Performed: 01/18/2018 Time Performed: 11:22:24 PTAGE: 62 years EKG: Sinus rhythm WITH SHORT DE INTERVAL RIGHT AXIS DEVIATION POSSIBLE SEPTAL MYOCARDIAL INFARCTION ABNORMAL ECG PREVIOUS TRACING : 01/18/2018 07.10 No significant change from previous tracing noted. DOCTOR: Parveen Alexandre Interpretating Date/Time 01/18/2018 15:42:27
[2018-01-18] MEDS: Sod Chloride 0.9% Inj 1,000 ML IV.CONT SCH (16:00)
[2018-01-18] MEDS: MethylPREDNISolone Sod Succinate Inj 40 MG/ML Vial IV.PUSH SCH (20:21)
[2018-01-18] MEDS: Senna/Docusate Sodium 8.6/50 MG Tablet PO SCH (20:21)
[2018-01-19] MEDS: Sod Chloride 0.9% Inj 1,000 ML IV.CONT SCH ×3 (00:49→20:31)
[2018-01-19 07:58] LABS: Hematocrit 30.6 % (35.0-46.0); Lymph # (Auto) 0.9 th/mm3 (1.0-4.8); Lymph % (Auto) 8.5 % (9.0-44.0); Mean Corpuscular HGB Conc 32.8 % (32.0-36.0); Mean Corpuscular Hemoglobin 28.5 pg (27.0-34.0); Mean Platelet Volume 7.2 fL (7.0-11.0); Mono # (Auto) 0.4 th/mm3 (0.0-0.9); Mono % (Auto) 3.8 % (0.0-8.0); Neut # (Auto) 9.6 th/mm3 (1.8-7.7); Neut % (Auto) 87.7 % (16.0-70.0); Platelet Count 450 th/mm3 (150-450); Red Blood Count 3.52 mil/mm3 (4.00-5.30); Red Cell Distribution Width 15.9 % (11.6-17.2)
[2018-01-19 08:26] LABS: Albumin 1.6 g/dL (3.4-5.0); Anion Gap 6 meq/L (5-15); Aspartate Aminotransferase 15 U/L (15-37); Blood Urea Nitrogen 11 mg/dL (7-18); Calcium 7.7 mg/dL (8.5-10.1); Carbon Dioxide 24.8 meq/L (21.0-32.0); Chloride 112 meq/L (98-107); Glomerular Filtration Rate Greater Than 89 mL/min (>89); Glucose,Random 186 mg/dL (74-106); Potassium 3.5 meq/L (3.5-5.1); Sodium 143 meq/L (136-145)
[2018-01-19 08:28] LABS: Alanine Aminotransferase 9 U/L (10-53)
[2018-01-19 08:29] LABS: Alkaline Phosphatase 98 U/L (45-117); Total Protein 5.8 g/dL (6.4-8.2)
[2018-01-19] MEDS: Senna/Docusate Sodium 8.6/50 MG Tablet PO SCH ×2 (09:10→20:33)
[2018-01-19] MEDS: MethylPREDNISolone Sod Succinate Inj 40 MG/ML Vial IV.PUSH SCH ×2 (09:10→20:33)
--- NOTE | 2018-01-19 11:34 | P.PN ---
Subjective Interval history: Nursing denies any deterioration since last night. Patient herself says she takes Valium and hydrocodone at home. Says she feels a little better than yesterday in terms of her breathing. Physical Exam Vital signs: Vital Signs 01/18/18 13:00 01/18/18 14:34 01/18/18 14:51 Temperature 99.3 F Pulse Rate 97 H 90 Respiratory Rate 18 20 Blood Pressure 99/56 L 100/63 Pulse Oximetry 94 L 97 94 L 01/18/18 15:00 01/18/18 16:00 01/18/18 19:24 Temperature 97.3 F L Pulse Rate 88 80 83 Respiratory Rate 18 20 18 Blood Pressure 96/61 L 105/56 L Pulse Oximetry 97 94 L 01/18/18 20:00 01/19/18 00:00 01/19/18 04:00 Temperature 98 F 97.5 F L 97.7 F Pulse Rate 86 64 66 Respiratory Rate 17 18 Blood Pressure 120/57 L 92/55 L 92/50 L Pulse Oximetry 98 95 01/19/18 07:45 01/19/18 08:00 Temperature 97.6 F Pulse Rate 69 76 Respiratory Rate 16 18 Blood Pressure 99/55 L Pulse Oximetry 95 98 Intake & Output 01/18/18 01/19/18 01/19/18 18:59 06:59 18:59 Intake Total 100 / 100 1350 / 1350 Balance 100 / 100 1350 / 1350 Weight 30.391 kg 38.8 kg Intake: IV 100 / 100 1350 / 1350 NS Inj 1,000 ML @ 100 mls/hr IV 1000 / 1000 .CONT .Q10H [facility] Rx#:[id number] Azithromycin Inj 500 MG In NS 250 / 250 Inj 250 ML @ 250 mls/hr IV.SIG ONCE ONE Rx#:[id number] Maxipime Inj 2,000 MG In NS Inj 100 / 100 100 / 100 100 ML @ 200 mls/hr IV.SIG Q8H [facility] Rx#:[id number] Other: # Voids 2 Narrative: Right lung field is clear with good aeration Left lung field sounds awfully plugged, with decreased air motion in the left lung base Results - Labs CBC & Chem 7: 01/19/18 07:02 01/19/18 07:02 Laboratory Results - last 24 hr 08/01/18/18 01/19/18 10:59 10:59 07:02 WBC 11.0 RBC 3.52 L Hgb 10.0 L Hct 30.6 L MCV 87.0 MCH 28.5 MCHC 32.8 RDW 15.9 Plt Count 450 MPV 7.2 Neut % (Auto) 87.7 H Lymph % (Auto) 8.5 L [place] % (Auto) 3.8 Eos % (Auto) 0.0 Baso % (Auto) 0.0 Neut # (Auto) 9.6 H Lymph # (Auto) 0.9 L [place] # (Auto) 0.4 Eos # (Auto) 0.0 Baso # (Auto) 0.0 WBC Differential . Differential Comment Auto diff final Sodium 140 Potassium 3.8 Chloride 107 Carbon Dioxide 26.3 Anion Gap 7 BUN 9 Creatinine 0.49 L Estimated GFR Greater than 89 Random Glucose 134 H Lactic Acid 0.8 Calcium 7.8 L Total Bilirubin 0.2 AST 19 ALT 10 Alkaline Phosphatase 122 H Total Protein 6.3 L Albumin 1.9 L 01/19/18 07:02 WBC RBC Hgb Hct MCV MCH MCHC RDW Plt Count MPV Neut % (Auto) Lymph % (Auto) [place] % (Auto) Eos % (Auto) Baso % (Auto) Neut # (Auto) Lymph # (Auto) [place] # (Auto) Eos # (Auto) Baso # (Auto) WBC Differential Differential Comment Sodium 143 Potassium 3.5 Chloride 112 H Carbon Dioxide 24.8 Anion Gap 6 BUN 11 Creatinine 0.45 L Estimated GFR Greater than 89 Random Glucose 186 H Lactic Acid Calcium 7.7 L Total Bilirubin 0.1 L AST 15 ALT 9 L Alkaline Phosphatase 98 Total Protein 5.8 L Albumin 1.6 L Microbiology 01/18/18 11:02 Blood - Peripheral Aerobic Blood Culture - Preliminary No growth in 1 day 01/18/18 11:02 Blood - Peripheral Anaerobic Blood Culture - Preliminary No growth in 1 day 01/18/18 11:07 Blood - Peripheral Aerobic Blood Culture - Preliminary No growth in 1 day 01/18/18 11:07 Blood - Peripheral Anaerobic Blood Culture - Preliminary No growth in 1 day 01/18/18 11:07 Nasal Wash Influenza Types A,B Antigen - Final Negative for FLU A and B antigen Infection due to influenza A or B cannot be ruled out since the antigen present in the sample may be below the detection limit of the test. - Imaging Impressions Chest X-Ray 01/18/18 10:55 CONCLUSION: Extensive chronic changes bilaterally. Likely infiltrate involving left lower lung. Assessment and Plan - Assessment (1) Sepsis Code(s): A41.9 - Sepsis, unspecified organism Status: Acute (2) Community acquired bacterial pneumonia Code(s): J15.9 - Unspecified bacterial pneumonia Status: Acute (3) Hypotension Code(s): I95.9 - Hypotension, unspecified Status: Acute - Plan 62-year-old female with Sepsis: Source due to community-acquired pneumonia Status post azithromycin, Rocephin and azithromycin cefepime Community-acquired pneumonia associate with respiratory failure cefepime, Mucinex Solu-Medrol, bronchodilators maintain oxygen saturation above 92% Follow-up sputum culture and monitor blood cultures Will need walk test prior to discharge Lung mass Status post bronchoscopy patient's veneer sawyer, Dr. Vo, following Hypotension Status post NS bolus in ED, monitor BP History of hypertension and other chronic medical conditions outpatient medication except antihypertensive medications until BP improved DVT prophylaxis: Lovenox Discharge Planning: Will need walk test prior to discharge
[2018-01-19] MEDS: diazePAM 5 MG Tablet PO SCH ×2 (13:55→17:42)
[2018-01-19] MEDS: Mirtazapine 15 MG Tablet PO SCH (20:32)
--- NOTE | 2018-01-19 21:49 | MB ---
cc: Melissa Torres MD DATE: 01/19/2018 REASON FOR CONSULTATION: Cavitary density left upper lung, lateral, possible malignancy, possible infection. HISTORY OF PRESENT ILLNESS: Ms. Arthur is a 62-year-old female with a cavitary lesion of the left upper lung, for which she had received a bronchoscopy on 01/18/2018. Postoperatively noted to develop a fever up to 102, as well as hypotension, and was sent to the emergency room where she was hospitalized for underlying infection and hypotension. The patient is feeling better at this time. She is generally weak and cachectic. She did have bilateral lung surgeries for bilateral pneumothorax once on the right and twice on the left. Bullectomy was done as well as some resection of the left upper lung; I am not really sure, which part was removed. The patient is in no acute distress at present, without hemoptysis. No history of TB or industrial exposure. PAST MEDICAL HISTORY: 1. COPD. 2. Cavitary left lung lesion as mentioned above. 3. Hyperlipidemia. 4. Irritable bowel syndrome. 5. Osteoporosis. PAST SURGICAL HISTORY: Essentially as outlined above. Had a hysterectomy, as well as a cholecystectomy in the past. FAMILY HISTORY: Positive for lung cancers, otherwise unremarkable. SOCIAL HISTORY: Over 95-[id number] smoking history, continues to smoke until time of hospitalization. Drinks alcohol socially. No TB, no industrial exposure. MEDICATIONS AT HOME: Temazepam. MEDICATIONS: Presently on: 1. Cefepime. 2. Solu-Medrol 3. Albuterol as needed. 4. Hydrocodone/acetaminophen. ALLERGIES: MORPHINE. SYSTEMS: A 12-point review of systems as per HPI and past history, otherwise negative. PHYSICAL EXAMINATION: GENERAL: The patient is alert. VITAL SIGNS: Temperature 97.2, respirations 19, pulse 90, respiration 18, blood pressure 102/70. HEENT: Unremarkable. Eyes without icterus. NECK: Without adenopathy or thyroid enlargement. CHEST Scattered rhonchi bilaterally. CARDIAC: PMI not appreciated. S1, S2 audible. No murmur. No rub. ABDOMEN: Lax, audible bowel sounds. PSYCHIATRIC: No clubbing, cyanosis or edema. LABORATORY DATA: White count 11,000, hemoglobin 10, hematocrit 30, platelets at 450,000. Sodium 143, potassium 4.5, BUN 11, creatinine 0.4. Chest x-ray with extensive chronic changes bilaterally. Infiltrate left lower lung. Previous CT scan of the chest with a cavitary density left upper lobe. IMPRESSION: 1. Cavitary density left upper lung. 2. Bilateral chronic scarring seen in both lungs. 3. Status post bilateral bullectomy. 4. Severe chronic obstructive pulmonary disease. PLAN: The patient will be maintained on oxygen therapy as needed, bronchodilator therapy; antibiotic therapy has been instituted and appropriately so. Review the patient's bronchoscopy results and treat accordingly. I do thank you for asking me to participate in Mrs. Arthur's care. MD MARLY Urbano/daniel , 07:06 PM , 07:16 PM
[2018-01-20] MEDS: Senna/Docusate Sodium 8.6/50 MG Tablet PO SCH ×2 (08:02→21:43)
[2018-01-20] MEDS: diazePAM 5 MG Tablet PO SCH ×3 (08:02→17:56)
[2018-01-20] MEDS: MethylPREDNISolone Sod Succinate Inj 40 MG/ML Vial IV.PUSH SCH ×2 (08:02→21:42)
[2018-01-20] MEDS: Sod Chloride 0.9% Inj 1,000 ML IV.CONT SCH ×2 (08:18→17:55)
--- NOTE | 2018-01-20 14:23 | P.PN ---
Subjective Interval history: Follow-up sepsis/community acquired bacterial pneumonia January 20, 2018-patient seen and examined, decreased appetite, complains of shortness of breath she was bump up to 4 L nasal cannula. Daughter by the bedside Physical Exam Vital signs: Vital Signs 01/19/18 16:00 01/19/18 19:28 01/19/18 20:00 Temperature 97.2 F L 97.5 F L Pulse Rate 93 H 88 100 H Respiratory Rate 18 16 18 Blood Pressure 102/54 L 117/62 Pulse Oximetry 96 94 L 95 01/20/18 00:00 01/20/18 00:07 01/20/18 03:44 Temperature 97.5 F L 97.5 F L Pulse Rate 86 61 61 Respiratory Rate 18 18 Blood Pressure 101/56 L 104/71 Pulse Oximetry 98 97 01/20/18 03:55 01/20/18 07:25 01/20/18 08:00 Temperature 97.3 F L Pulse Rate 65 78 68 Respiratory Rate 17 18 Blood Pressure 141/65 H Pulse Oximetry 95 96 01/20/18 12:00 Temperature 97.2 F L Pulse Rate 87 Respiratory Rate 16 Blood Pressure 108/57 L Pulse Oximetry 94 L Intake & Output 01/19/18 01/20/18 01/20/18 18:59 06:59 18:59 Intake Total 1700 / 1700 2200 / 2200 100 / 100 Output Total 200 / 200 Balance 1500 / 1500 2200 / 2200 100 / 100 Weight 42.5 kg Intake: IV 1100 / 1100 2200 / 2200 100 / 100 NS Inj 1,000 ML @ 100 mls/hr IV 1000 / 1000 2000 / 2000 .CONT .Q10H [facility] Rx#:[id number] Maxipime Inj 2,000 MG In NS Inj 100 / 100 200 / 200 100 / 100 100 ML @ 200 mls/hr IV.SIG Q8H [facility] Rx#:[id number] Oral 600 / 600 Output: Urine 200 / 200 Other: # Bowel Movements 0 Narrative: GENERAL: NAD SKIN: Warm and dry. HEAD: Normocephalic. EYES: No scleral icterus. No injection or drainage. NECK: Supple, trachea midline. No JVD or lymphadenopathy. CARDIOVASCULAR: Regular rate and rhythm without murmurs, gallops, or rubs. RESPIRATORY: Breath sounds decrease bilaterally. No accessory muscle use.+exp Wheezings GASTROINTESTINAL: Abdomen soft, non-tender, nondistended. MUSCULOSKELETAL: No cyanosis, or edema. BACK: Nontender without obvious deformity. No CVA tenderness. Results - Labs CBC & Chem 7: 01/19/18 07:02 01/19/18 07:02 Microbiology 01/18/18 11:02 Blood - Peripheral Aerobic Blood Culture - Preliminary No growth in 2 days 01/18/18 11:02 Blood - Peripheral Anaerobic Blood Culture - Preliminary No growth in 2 days 01/18/18 11:07 Blood - Peripheral Aerobic Blood Culture - Preliminary No growth in 2 days 01/18/18 11:07 Blood - Peripheral Anaerobic Blood Culture - Preliminary No growth in 2 days Assessment and Plan - Assessment (1) Sepsis Code(s): A41.9 - Sepsis, unspecified organism Status: Acute (2) Community acquired bacterial pneumonia Code(s): J15.9 - Unspecified bacterial pneumonia Status: Acute (3) Hypotension Code(s): I95.9 - Hypotension, unspecified Status: Acute - Plan 62-year-old female with Sepsis: Source due to community-acquired pneumonia Status post azithromycin, Rocephin and azithromycin Continue cefepime Community-acquired pneumonia associate with respiratory failure Chest x-ray noted and reviewed by me with finding representing likely infiltrate involving left lower lung Continue cefepime, Mucinex; Start Symbicort Continue Solu-Medrol 20 mg every 12 hours, bronchodilators maintain oxygen saturation above 92% Perform Walk test prior to discharge blood cultures NTD Lung mass Status post bronchoscopy patient's electrotyper apprentice, Dr. Adames ff Hypotension Improving, monitor BP History of hypertension and other chronic medical conditions Continue outpatient medication except antihypertensive medications until BP improved DVT prophylaxis: Lovenox
--- NOTE | 2018-01-20 14:27 | P.DCO ---
- Physical Therapy Order: Evaluate and treat - Home Health Nursing Order: Signs/symptoms of disease process - Certification I have seen patient Vilma Arthur on 01/20/18. My clinical findings support the need for the requested home health care services because: Limited mobility due to disease progression, Patient has SOB I certify that my clinical findings support that this patient is homebound because: Unsteady gait/balance
[2018-01-20] MEDS: Budesonide-Formoterol 160/4.5 MCG 6 GM Inhaler INH SCH ×2 (16:42→21:46)
[2018-01-20] MEDS: Mirtazapine 15 MG Tablet PO SCH (21:42)
[2018-01-21] MEDS: Sod Chloride 0.9% Inj 1,000 ML IV.CONT SCH ×2 (03:26→18:38)
[2018-01-21] MEDS: MethylPREDNISolone Sod Succinate Inj 40 MG/ML Vial IV.PUSH SCH ×2 (08:47→20:44)
[2018-01-21] MEDS: Senna/Docusate Sodium 8.6/50 MG Tablet PO SCH ×2 (08:47→20:46)
[2018-01-21] MEDS: diazePAM 5 MG Tablet PO SCH (08:47)
[2018-01-21] MEDS: Budesonide-Formoterol 160/4.5 MCG 6 GM Inhaler INH SCH ×2 (08:51→20:48)
[2018-01-21 09:15] LABS: ABG Base Excess -4.6 mmol/L (-2-2); ABG PCO2 49 mmHg (38-42); ABG PO2 94 mmHg (61-120)
[2018-01-21] MEDS ORDERED: Etomidate Inj 40 MG/20 ML Vial IV.PUSH ONE ×2 (09:32→09:34)
[2018-01-21] MEDS ORDERED: Propofol 1000 mg/100 ml Inj 1,000 MG/100 ML BOTTLE IV.CONT PRN (09:33)
[2018-01-21] MEDS ORDERED: fentaNYL 10 mcg/mL Premix Drip 2,500 MCG/250 ML BAG IV.SIG PRN (09:33)
[2018-01-21] MEDS ORDERED: MethylPREDNISolone Sod Succinate Inj 125 MG/2 ML Vial IV.PUSH ONE (10:15)
--- NOTE | 2018-01-21 10:15 | P.PCN ---
Date of procedure: 01/21/18 Pre-op diagnosis: Acute respiratory failure Post-op diagnosis: same Procedure: DATE: 01/21/2018 PROCEDURE: Orotracheal intubation INDICATION: Acute respiratory failure DETAILS OF PROCEDURE The patient was placed in optimal position and preoxygenated with 100% FiO2 via bag valve mask. At the start oxygen saturation was unknown/unable to bull gang supervisor %. The patient was administered 20 mg etomidate IV and 50 mg rocuronium IV. I entered the oropharynx with a size 4 laryngoscope blade and obtained a grade 2 view of the airway. On single attempt a size 8.0 cuffed endotracheal tube was passed through the vocal cords. Correct tube location was confirmed with end tidal CO2 detector and by auscultating over bilateral lung kinney. The endotracheal tube was secured with adhesive tape at a depth of 23 cm at the lips. The patient was connected to the ventilator. The patient tolerated the procedure well without any apparent complications. Oxygen saturations were maintained greater than 95% all times. STAT chest x-ray pending at time of dictation.
--- NOTE | 2018-01-21 10:16 | P.PCN ---
Date of procedure: 01/21/18 Pre-op diagnosis: Acute respiratory failure/poor IV access Post-op diagnosis: same Procedure: DATE: 01/21/2018 CENTRAL LINE PLACEMENT: Left internal jugular vein. Ultrasound-guided INDICATION: Central venous access CONSENT Informed consent for procedure was obtained from patient prior to intubation. DESCRIPTION OF THE PROCEDURE The patient was placed in supine position. The skin was cleansed with Chloraprep. Additional barrier precautions included large sterile drape, sterile gloves, sterile gown, face mask, and hat. 1 % lidocaine was used for local anesthesia. Under direct ultrasound guidance and on second attempt, the vein was accessed with an introducer needle. The guide wire was advanced and the tract was dilated. Using Seldinger technique a 7 [place] 20 cm antimicrobial coated triple-lumen catheter was advanced to a depth of 20 centimeters. The guide wire was removed. All ports had good return of dark venous blood and flushed easily with saline. The central line was secured with 2.0 silk. A sterile dressing with antibiotic disc was applied. ESTIMATED BLOOD LOSS: Minimal COMPLICATIONS: No apparent complications. STAT chest x-ray pending at time of dictation
[2018-01-21] MEDS ORDERED: Magnesium Oxide 400 MG Tablet PO PRN (10:18)
[2018-01-21] MEDS ORDERED: Sodium Phosphate Inj 30 MMOL in Sodium Chlor 0.9% Inj 250 ML IV.SIG PRN (10:18)
[2018-01-21] MEDS ORDERED: Potassium Chlor 20 mEq Premix 20 MEQ/100 ML PIGGYBACK IV.SIG PRN ×2 (10:18)
[2018-01-21] MEDS ORDERED: Potassium Chloride 25 MEQ Effervescent Tablet PO PRN (10:18)
[2018-01-21] MEDS ORDERED: Magnesium Sulfate Inj 2 GM in Sodium Chlor 0.9% Inj 96 ML IV.SIG PRN (10:18)
[2018-01-21] MEDS ORDERED: Potassium Chlor 40 mEq Premix 40 MEQ/100 ML PIGGYBACK IV.SIG PRN ×2 (10:18)
[2018-01-21] MEDS ORDERED: Potassium Phosphate 500 MG Soluble Tablet PO PRN ×2 (10:18)
[2018-01-21] MEDS ORDERED: Magnesium Sulfate Inj 4 GM in Sodium Chlor 0.9% Inj 92 ML IV.SIG PRN (10:18)
[2018-01-21] MEDS ORDERED: Potassium Phosphate Inj 30 MMOL in Sodium Chlor 0.9% Inj 250 ML IV.SIG PRN (10:18)
[2018-01-21] MEDS ORDERED: Dextrose 50% in Water 50 ML Vial IV.PUSH PRN (10:19)
--- NOTE | 2018-01-21 10:25 | P.CONCC ---
History of Present Illness Service: Critical care medicine Consult date: 01/21/18 Requesting Physician: Jaun Mayfield Reason for Consult: Acute respiratory failure Primary Care Provider: Connor Dunne MD Family Provider: Connor Dunne MD Chief Complaint: Fevers, shortness of breath and cough production History of Present Illness: This is a 62-year-old female. Date of admission 01/18/2018. Consult . Past medical history includes COPD, anxiety requiring benzodiazepines , osteoarthritis, inflammatory bowel disease, hyperlipidemia and osteopenia ysabel. She presents to [facility] on status post bronchoscopy with Dr. Torres. Those cultures are negative to date. Patient also had biopsy. She originally presented to Dr. Lanier/hematology with several month history of fatigue, weight loss fevers and chills. CT scan chest November 2007 revealed cavitation left upper lobe, bullous emphysematous changes left lower lobe and right hemithorax. Chronically elevated left hemidiaphragm. After bronchoscopy, blood cultures 2 were drawn. Patient was placed on cefepime. Patient resume normal state of health when became acutely short of breath this morning. Patient is quite tachypneic with respiratory rates in the 50s with using accessory muscles. Due to likely pending respiratory failure patient was electively intubated please see orders. Antibiotics been broadened.. Review of Systems unobtainable due to endotracheal tube PMFSH - History History Provided By: Patient - Medical History Medical History: Medical History (Last Updated 01/21/18 @ 10:45 by Tavares Melchor MD) Anxiety disorder History of benzodiazepine use COPD (chronic obstructive pulmonary disease) Hyperlipidemia Irritable bowel syndrome (IBS) Osteopenia - Surgical History Surgical History: Surgical History (Last Updated 01/21/18 @ 10:47 by Tavares Melchor MD) History of breast implant History of tubal ligation H/O hysterectomy for benign disease History of cholecystectomy - Family History Family History: Family History (Last Reviewed 01/21/18 @ 10:24 by Tavares Melchor MD) Other Family history of lung cancer - Tobacco History Second Hand Smoke Exposure: Yes Tobacco Use In Past 30 Days: Yes Smoking Status: Current every day smoker Tobacco Type: Cigarettes - Alcohol History How Often Do You Have a Drink Containing Alcohol: Never - Substance Use History Substance History: No History of Abuse - Travel History Recent Travel in the [place] Within the Last 8 Weeks: No Recent Travel Out of the Country Within the Last 8 Weeks: No - Immunization History Tetanus Immunization: Unsure Hx Influenza Vaccine This Season: No Medications and Allergies Active Medications: Active Medications Acetaminophen (Tylenol Liq) 650 mg PO Q6H PRN PRN Reason: FEVER Al Hydroxide/Mg Hydroxide (Milk Of Magnesia Liq) 30 ml PO Q12H PRN PRN Reason: Mild Constipation Albuterol (Duoneb Neb (Luc)) 1 ampul NEB Q4HR NEB LUC Albuterol (Albuterol Neb (Prn)) 2.5 mg NEB Q2HR NEB PRN PRN Reason: DYSPNEA Artificial Tears (Genteal Severe Dry Eye Relief 0.3% Opth Gel) 1 drops EACH EYE BID [facility] Budesonide/Formoterol Fumarate (Symbicort 160/4.5 Mcg Inh) 2 puff INH BID [facility] Last Admin: 01/21/18 08:51 Dose: 2 puff Chlorhexidine Gluconate (Peridex 0.12% Oral Kit) 15 ml OROPHARYNG BID@0800, 2000 [facility] Dextrose (D50w Vial) 50 ml IV.PUSH UNSCH PRN PRN Reason: PER HYPOGLYCEMIA PROTOCOL Glucagon (Glucagon Inj) 1 mg OTHER PRN PRN PRN Reason: for Hypoglycemia Protocol Cefepime HCl 2,000 mg/ Sodium (Chloride) 100 mls @ 200 mls/hr IV.SIG Q8H [facility] Last Admin: 01/21/18 08:48 Dose: 100 mls/hr Sodium Chloride (Ns Inj) 1,000 mls @ 100 mls/hr IV.CONT .Q10H [facility] Last Infusion: 01/21/18 05:39 Dose: 100 mls/hr Fentanyl (Fentanyl 10 Mcg/Ml Premix Drip) 2,500 mcg in 250 mls @ 5 mls/hr IV.SIG TITRATE PRN; Protocol PRN Reason: Per Protocol Propofol (Diprivan 1000 Mg/100 Ml Inj) 1,000 mg in 100 mls @ 1.332 mls/hr IV.CONT TITRATE PRN; Protocol PRN Reason: Per Protocol Magnesium Sulfate Inj 4 gm/ (Sodium Chloride) 100 mls @ 50 mls/hr IV.SIG UNSCH PRN PRN Reason: For Magnesium 0.9 - 1.1 mg/dL Potassium Chloride (Kcl 40 Meq Premix Inj) 40 meq in 100 mls @ 25 mls/hr IV.SIG Q2H PRN PRN Reason: For Potassium 2.8 - 3.2 mEq/L Potassium Chloride (Kcl 20 Meq Premix Inj) 20 meq in 100 mls @ 50 mls/hr IV.SIG Q2H PRN PRN Reason: For Potassium 3.3 - 3.5 mEq/L Potassium Chloride (Kcl 40 Meq Premix Inj) 40 meq in 100 mls @ 25 mls/hr IV.SIG UNSCH PRN PRN Reason: For Potassium 3.3 - 3.5 mEq/L Potassium Chloride (Kcl 20 Meq Premix Inj) 20 meq in 100 mls @ 50 mls/hr IV.SIG Q2H PRN PRN Reason: For Potassium 2.8 - 3.2 mEq/L Potassium Phosphate 30 mmol/ (Sodium Chloride) 260 mls @ 42 mls/hr IV.SIG UNSCH PRN PRN Reason: SEE LABEL COMMENTS Sodium Phosphate 30 mmol/ (Sodium Chloride) 260 mls @ 42 mls/hr IV.SIG UNSCH PRN PRN Reason: For Phosphorus < 2.5 mg/dL Magnesium Sulfate Inj 2 gm/ (Sodium Chloride) 100 mls @ 50 mls/hr IV.SIG UNSCH PRN PRN Reason: For Magnesium 1.2 - 1.6 mg/dL Azithromycin 500 mg/ Sodium (Chloride) 250 mls @ 250 mls/hr IV.SIG Q24H [facility] Insulin Aspart (Novolog Insulin Correctional Sugar Inj) 0 unit SQ Q6HR [facility]; Protocol Lansoprazole (Prevacid Solutab) 30 mg NG/OG DAILY [facility] Magnesium Oxide (Mag-Ox) 800 mg PO UNSCH PRN PRN Reason: For Magnesium 1.2 - 1.6 mg/dL Methylprednisolone Sodium Succinate (Solumedrol Inj) 20 mg IV.PUSH Q12HR [facility] Last Admin: 01/21/18 08:47 Dose: 20 mg Mirtazapine (Remeron) 45 mg PO HS [facility] Last Admin: 01/20/18 21:42 Dose: 45 mg Ondansetron HCl (Zofran Inj) 4 mg IV.PUSH Q6H PRN PRN Reason: NAUSEA OR VOMITING Potassium Bicarb/Potassium Chloride (K-Lyte Cl Eff) 50 meq PO UNSCH PRN PRN Reason: For Potassium 3.3 - 3.5 mEq/L Potassium Phosphate (K-Phos Original) 2,000 mg PO Q4H PRN PRN Reason: Phosphorus Less Than 2.5 mg/dL Potassium Phosphate (K-Phos Original) 2,000 mg PO UNSCH PRN PRN Reason: SEE LABEL COMMENTS Pravastatin Sodium (Pravachol) 40 mg PO QPM [facility] Last Admin: 01/20/18 17:39 Dose: 40 mg Senna/Docusate Sodium (Agustina-Colace) 1 tab PO BID [facility] Last Admin: 01/21/18 08:47 Dose: 1 tab Sennosides (Senokot) 17.2 mg PO Q12H PRN PRN Reason: Moderate Constipation Allergies Allergy/AdvReac Type Severity Reaction Status Date / Time morphine Allergy Severe Fatigue Verified 01/18/18 13:33 MRI PRECAUTION Allergy Unknown METAL Uncoded 01/18/18 13:[address] Home Medications Medication Instructions Recorded Confirmed Type albuterol sulfate [Ventolin HFA] 2 puff INHALATION QID PRN 01/18/18 01/18/18 History alendronate 70 mg PO QWEEK 01/18/18 01/18/18 History diazepam 5 mg PO TID 01/18/18 01/18/18 History diphenoxylate-atropine 1 tab PO Q6-8H PRN 01/18/18 01/18/18 History mirtazapine 45 mg PO DAILY 01/18/18 01/18/18 History nitroglycerin 0.4 mg SUBLINGUAL Q5-15M PRN 01/18/18 01/18/18 History simvastatin 20 mg PO QPM 01/18/18 01/18/18 History tizanidine 4 mg PO BID 01/18/18 01/18/18 History Physical Exam Vital signs: Vital Signs 01/20/18 12:00 01/20/18 14:30 01/20/18 16:00 Temperature 97.2 F L 97.0 F L Pulse Rate 87 83 96 H Respiratory Rate 16 16 18 Blood Pressure 108/57 L 149/70 H Pulse Oximetry 94 L 94 L 01/20/18 19:04 01/20/18 19:05 01/20/18 19:06 Temperature Pulse Rate 91 H Respiratory Rate 18 Blood Pressure Pulse Oximetry 95 95 01/20/18 19:55 01/20/18 20:00 01/20/18 23:54 Temperature 97.8 F Pulse Rate 93 H 85 75 Respiratory Rate 17 Blood Pressure 131/60 Pulse Oximetry 95 01/21/18 00:00 01/21/18 03:40 01/21/18 04:00 Temperature 97.8 F 97.3 F L Pulse Rate 90 94 H 113 H Respiratory Rate 17 24 21 Blood Pressure 113/62 144/81 H Pulse Oximetry 95 91 L 01/21/18 04:03 01/21/18 07:53 01/21/18 09:10 Temperature Pulse Rate 118 H 107 H Respiratory Rate 17 Blood Pressure Pulse Oximetry 97 97 01/21/18 10:17 Temperature Pulse Rate Respiratory Rate 15 Blood Pressure Pulse Oximetry 100 Intake & Output 01/20/18 01/21/18 01/21/18 18:59 06:59 18:59 Intake Total 1300 / 1300 1560 / 1560 Output Total 400 / 400 Balance 900 / 900 1560 / 1560 Weight 44.4 kg Intake: IV 700 / 700 850 / 850 NS Inj 1,000 ML @ 100 mls/hr IV 500 / 500 750 / 750 .CONT .Q10H [facility] Rx#:[id number] Maxipime Inj 2,000 MG In NS Inj 200 / 200 100 / 100 100 ML @ 200 mls/hr IV.SIG Q8H [facility] Rx#:[id number] Oral 600 / 600 710 / 710 Output: Urine 400 / 400 Other: Date of Last Bowel Movement 01/20/18 # Bowel Movements 0 Narrative: GENERAL: 62-year-old female currently orotracheally intubated SKIN: Warm and dry. No rash HEAD: Atraumatic. Normocephalic. EYES: Pupils equal and round around 3 mm bilaterally and reactive. No scleral icterus. No injection or drainage. ENT: No nasal bleeding or discharge. Mucous membranes pink and moist. NECK: Trachea midline. No JVD. Left IJ is clean dry and intact at 17 cm CARDIOVASCULAR: Tachycardic, RR. S1, S2 no strip without murmur RESPIRATORY: Prior to intubation positive accessory muscle use. Diminished breath sounds throughout. Fine crackles in the bases bilaterally. Positive end expiratory wheeze. GASTROINTESTINAL: Abdomen soft, non-tender, nondistended. Hypoactive bowel sounds appreciated hepatic and splenic margins not palpable. MUSCULOSKELETAL: Extremities without any peripheral edema. No obvious deformities. NEUROLOGICAL: Awake and alert. No obvious cranial nerve deficits. Motor grossly within normal limits. Five out of 5 muscle strength in the arms and legs. Normal speech. Septic Shock Reassessment Septic shock perfusion: reassessment completed Assessment and Plan - Assessment and Plan Plan: Neuro/Psych: Chronic benzodiazepine use Anxiety disorder NOS Written for propofol/fentanyl drips for sedation/analgesia while intubated. Allergy to morphine is documented as fatigue. Goal of RA SS -2 Daily sedation vacation Acetaminophen 650 by tube every 6 hours as needed fever Continue mirtazapine 45 mg at night/home medication. Holding diazepam 5 mg 3 times daily/home medication Holding tizanidine 4 mg 2 times daily CV: Sinus tachycardia Hyperlipidemia Received 1 L LR bolus. Check CPK/troponin BNP We placed on D5 normal saline at 40 cc an hour. Resume simvastatin 20 mg daily/home medication Resp: Acute respiratory failure History of COPD [facility] /06/11/49 Ventilator bundle Albuterol/ipratropium aerosols every 4 hours with albuterol aerosols every 2 hours as needed for dyspnea Methylprednisolone succinate 40 mg IV twice daily Currently in budesonide/formoterol 160/4.5 2 inhalation twice daily. Continue via ventilator Pulmonary jury consultant Follow postintubation chest x-ray and ABG GI: Hypoalbuminemia Start Jevity 1.5 goal 35 cc an hour. Dietary consult for recommendations. Off for GI prophylaxis Docusate sodium/senna 1 tablet twice daily for bowel regimen : Cho catheter placement for accurate I's and O's in a critically ill patient. Check UA Endo: Sliding scale insulin with Accu-Cheks to maintain euglycemia every 6 hours aspart insulin low regimen Check TSH Renal: Monitor urine output Accurate I's and O's BMP pending Heme: Normocytic anemia Monitor CBC daily. Follow trends. No indication for transfusion of blood products at this time ID: Community acquired pneumonia/sepsis Currently on cefepime day #4 start 01/18. Blood cultures 2 01/18 no growth to date. Influenza negative. Bronchoscopy samples negative Add azithromycin and vancomycin today Sputum, chlamydia, mycoplasma all ordered today MSK: Cachexia PT evaluate and treat. Weight gain encouraged FEN: Replace electrolytes as clinically indicated per ICU electrolyte protocol Access -Left IJ CVL day #1 placed 01/21 Prophylaxis -GI -lansoprazole - -DVT SCDs/enoxaparin 35 minutes critical care time Code Status: Full code Discussed Condition With: Patient prior to intubation. IMC RN. CARE plan discussed and all questions answered.
[2018-01-21] MEDS ORDERED: KCL 20 mEq/D5W/NaCl 0.9% Inj 1,000 ML IV.CONT SCH (10:39)
[2018-01-21 10:40] LABS: Hematocrit 34.2 % (35.0-46.0); Hemoglobin 10.8 gm/dL (11.6-15.3); Lymph # (Auto) 1.8 th/mm3 (1.0-4.8); Lymph % (Auto) 12.7 % (9.0-44.0); Mean Corpuscular HGB Conc 31.5 % (32.0-36.0); Mean Corpuscular Hemoglobin 28.1 pg (27.0-34.0); Mean Corpuscular Volume 89.3 fL (80.0-100.0); Mean Platelet Volume 6.9 fL (7.0-11.0); Mono # (Auto) 1.1 th/mm3 (0.0-0.9); Mono % (Auto) 7.3 % (0.0-8.0); Neut # (Auto) 11.5 th/mm3 (1.8-7.7); Platelet Count 402 th/mm3 (150-450); Red Blood Count 3.83 mil/mm3 (4.00-5.30); Red Cell Distribution Width 16.4 % (11.6-17.2); White Blood Count 14.4 th/mm3 (4.0-11.0)
--- NOTE | 2018-01-21 10:52 | XR ---
EXAM DATE: 01/21/2018 10:46 AM EDT AGE/SEX: 62 years / Female INDICATIONS: Central line placement and ET tube placement. CLINICAL DATA: This is the patient's subsequent encounter. Patient reports that signs and symptoms h ave been present for 3 days and indicates a pain score of Nonresponsive. MEDICAL/SURGICAL HISTORY: . Hypertension. Chronic obstructive pulmonary disease. Emphysema. His tory of pneumothorax. . Mitral valve. Bilateral upper lobe removal. Back stimulator. COMPARISON: C, CHEST 1V SINGLE AP, 01/18/2018. . FINDINGS: Endotracheal tube is in good position. Left IJ line tip curves back cephalad, possibly within the sup erior vena cava or azygos vein. Previous left thoracotomy. Compared with January 18 there is an increase in consolidation and effusion at the left lung base and also to a lesser extent at the right lung base. No definite pneumothorax. Apical pleural thickening n oted with willi at the right apex. CONCLUSION: Compared with January 18 there is an increase in basilar airspace disease and pleural effusions. Left IJ line tip extends cephalad, possibly in the superior vena cava or azygos vein. Endotracheal tu be in good position. Electronically signed by: Galindo Perkins MD 01/21/2018 10:51 AM EDT
[2018-01-21 10:54] LABS: Activated Partial Thrombo Time 22.7 sec (24.3-30.1); INR 1.1 Ratio; Prothrombin Time 11.4 sec (9.8-11.6)
[2018-01-21] MEDS ORDERED: Vancomycin Consult Pharmacy OTHER SCH (10:54)
[2018-01-21 11:19] LABS: Alanine Aminotransferase 57 U/L (10-53); Albumin 1.7 g/dL (3.4-5.0); Alkaline Phosphatase 86 U/L (45-117); Anion Gap 8 meq/L (5-15); Aspartate Aminotransferase 64 U/L (15-37); Blood Urea Nitrogen 10 mg/dL (7-18); Calcium 7.4 mg/dL (8.5-10.1); Carbon Dioxide 25.1 meq/L (21.0-32.0); Chloride 111 meq/L (98-107); Glomerular Filtration Rate Greater Than 89 mL/min (>89); Glucose,Random 243 mg/dL (74-106); Magnesium 1.9 mg/dL (1.5-2.5); Phosphorus 3.3 mg/dL (2.5-4.9); Potassium 4.1 meq/L (3.5-5.1); Sodium 144 meq/L (136-145); Total Protein 5.6 g/dL (6.4-8.2)
--- NOTE | 2018-01-21 11:19 | XR ---
EXAM DATE: 01/21/2018 11:10 AM EDT AGE/SEX: 62 years / Female INDICATIONS: Reposition of central line. CLINICAL DATA: This is the patient's subsequent encounter. Patient reports that signs and symptoms h ave been present for 3 days and indicates a pain score of Nonresponsive. MEDICAL/SURGICAL HISTORY: . Hypertension. Chronic obstructive pulmonary disease. Emphysema. His tory of pneumothorax. . Mitral valve. Bilateral upper lobe removal. Back stimulator. COMPARISON: C, CHEST 1V SINGLE AP, 01/21/2018. . FINDINGS: Left central line has been withdrawn slightly but tip still curves back cephalad, probably within the azygos vein. Endotracheal tube in good position. Nasogastric tube has been placed entering stomach. Basilar airspace disease and effusions are stable. CONCLUSION: Left central line has been withdrawn slightly but tip is probably still within the azygos vein. Nasog astric tube has been placed, seen entering stomach. Electronically signed by: Galindo Perkins MD 01/21/2018 11:18 AM EDT
[2018-01-21 11:23] LABS: ABG Base Excess -3.7 mmol/L (-2-2); ABG PCO2 43 mmHg (38-42); ABG PO2 138 mmHg (61-120)
--- NOTE | 2018-01-21 11:53 | XR ---
EXAM DATE: 01/21/2018 11:47 AM EDT AGE/SEX: 62 years / Female INDICATIONS: Reposition central line. CLINICAL DATA: This is the patient's initial encounter. Patient reports that signs and symptoms have been present for 3 days and indicates a pain score of Nonresponsive. MEDICAL/SURGICAL HISTORY: Hypertension. Chronic obstructive pulmonary disease. emphysema, hx o f pneumothorax, mitral valve . bilateral upper lobe removal, back stimulator COMPARISON: [facility], CHEST 1V SINGLE AP, 01/21/2018. . FINDINGS: Left IJ line has been repositioned and tip is in superior vena cava in good position. Endotracheal tu be and nasogastric tube also in good position. Stable basilar airspace disease and pleural effusions. CONCLUSION: Repositioning of left central line tip into the superior vena cava in good position. Electronically signed by: Galindo Perkins MD 01/21/2018 11:52 AM EDT
--- NOTE | 2018-01-21 11:56 | P.DIET ---
Nutritional Evaluation Type of nutrition evaluation: initial Nutrition consult regarding: Tube Feeding Nutrition screening: [facility] [place] Screening comments: 01/21/18 [facility] [place] TF'ing Objective - Diagnosis Sepsis - Objective [place] body weight: 50 kg Body Weight Used for Calculations: Actual (initial bedscale wt 38.8kg) Energy Needs - Lower Range (kCal/kg): 35 Energy Needs - Upper Range (kCal/kg): 40 Lower Limit kCal/kg (kCals): 1,253 Upper Limit kCal/kg (kCals): 1,552 Lower Limit Protein Factor (Grams per Kg): 1.2 Upper Limit Protein Factor (Grams per Kg): 1.5 Lower Protein Needs (Protein): 47 Upper Protein Needs (Protein): 58 Dietitian Reviewed in Medical Record: Curent medications, Intake & Output, Labs , Medical history, Tube feeding Diet Order: TF'ing ONLY: Jevity 1.5 @ goal rate 35ml/hr Objective Comments: PMH: Anxiety DO, COPD, h/o bezodiazepine use, hyperlipidemia, IBS, Osteopenia Random Glucose 243, ammonia 35 Meds Include: Novolog SSI Assessment Assessment: Pt is at nutritional risk r/t diagnosis, recent wt loss and need for TF'ing. TF' ing, as ordered, Jevity 1.5 @ 35ml/hr provides for pt's assessed needs and will offer 1260 kcal, 53.6g protein and 638ml free water. Labs reviewed-elev.glucose w/pt receiving SSI to maintain euglycemia. Additional Recs r/t Clinical Course. Recommendations: 1. TF'ing Jevity 1.5 @ 35ml/hr provides for pt's assessed needs 2. Additional Recs r/t Clinical Course Dietitian to Monitor: Lab values, Glucose level, Intake & Output, Tube feeding tolerance, Weight change, Medical course
--- NOTE | 2018-01-21 12:00 | P.PN ---
Subjective Interval history: Follow-up sepsis/community acquired bacterial pneumonia January 20, 2018-patient seen and examined, decreased appetite, complains of shortness of breath she was bump up to 4 L nasal cannula. Daughter by the bedside January 21, 2018-patient was seen and examined during [facility]. She was was in respiratory failure. Case was discussed with Dr Melchor, [facility] Physical Exam Vital signs: Vital Signs 01/20/18 12:00 01/20/18 14:30 01/20/18 16:00 Temperature 97.2 F L 97.0 F L Pulse Rate 87 83 96 H Respiratory Rate 18 Blood Pressure 108/57 L 149/70 H Pulse Oximetry 94 L 94 L 01/20/18 19:04 01/20/18 19:05 01/20/18 19:06 Temperature Pulse Rate 91 H Respiratory Rate 18 Blood Pressure Pulse Oximetry 95 95 01/20/18 19:55 01/20/18 20:00 01/20/18 23:54 Temperature 97.8 F Pulse Rate 93 H 85 75 Respiratory Rate 17 Blood Pressure 131/60 Pulse Oximetry 95 01/21/18 00:00 01/21/18 03:40 01/21/18 04:00 Temperature 97.8 F 97.3 F L Pulse Rate 90 94 H 113 H Respiratory Rate 17 24 21 Blood Pressure 113/62 144/81 H Pulse Oximetry 95 91 L 01/21/18 04:03 01/21/18 07:53 01/21/18 09:10 Temperature Pulse Rate 118 H 107 H 147 H Respiratory Rate 17 42 H Blood Pressure Pulse Oximetry 97 97 01/21/18 10:17 01/21/18 11:25 Temperature Pulse Rate 144 H Respiratory Rate 15 19 Blood Pressure Pulse Oximetry 100 99 Intake & Output 01/20/18 01/21/18 01/21/18 18:59 06:59 18:59 Intake Total 1300 / 1300 1560 / 1560 Output Total 400 / 400 Balance 900 / 900 1560 / 1560 Weight 44.4 kg Intake: IV 700 / 700 850 / 850 NS Inj 1,000 ML @ 100 mls/hr IV 500 / 500 750 / 750 .CONT .Q10H ANGELA Rx#:[id number] Maxipime Inj 2,000 MG In NS Inj 200 / 200 100 / 100 100 ML @ 200 mls/hr IV.SIG Q8H ANGELA Rx#:[id number] Oral 600 / 600 710 / 710 Output: Urine 400 / 400 Other: Date of Last Bowel Movement 01/20/18 # Bowel Movements 0 Narrative: GENERAL: in distress SKIN: Warm and dry. HEAD: Normocephalic. EYES: No scleral icterus. No injection or drainage. NECK: Supple, trachea midline. No JVD or lymphadenopathy. CARDIOVASCULAR: Regular rate and rhythm without murmurs, gallops, or rubs. RESPIRATORY: Breath sounds decrease bilaterally. + accessory muscle use. GASTROINTESTINAL: Abdomen soft, non-tender, nondistended. MUSCULOSKELETAL: No cyanosis, or edema. BACK: Nontender without obvious deformity. No CVA tenderness. Results - Labs CBC & Chem 7: 01/21/18 10:18 01/21/18 10:18 Laboratory Results - last 24 hr 01/21/18 01/21/18 01/21/18 09:05 10:18 10:18 WBC 14.4 H RBC 3.83 L Hgb 10.8 L Hct 34.2 L MCV 89.3 MCH 28.1 MCHC 31.5 L RDW 16.4 Plt Count 402 MPV 6.9 L Neut % (Auto) 80.0 H Lymph % (Auto) 12.7 [place] % (Auto) 7.3 Eos % (Auto) 0.0 Baso % (Auto) 0.0 Neut # (Auto) 11.5 H Lymph # (Auto) 1.8 [place] # (Auto) 1.1 H Eos # (Auto) 0.0 Baso # (Auto) 0.0 WBC Differential . Differential Comment Auto diff final PT 11.4 INR 1.1 APTT 22.7 L Puncture Site Right radial Patient Temperature 98.6 O2 Saturation 94 ABG pH 7.26 L* ABG pCO2 49 H ABG pO2 94 ABG HCO3 21 L ABG O2 Content 15.3 ABG Base Excess -4.6 L ABG Methemoglobin 0.9 Tio Test Present Hemoglobin 11.4 L Carboxyhemoglobin 0.9 O2 Delivery Device Nasal cannula Liter Flow 6.00 Vent Setting Inspired O2 21 Critical Value Yes Sodium Potassium Chloride Carbon Dioxide Anion Gap BUN Creatinine Estimated GFR Random Glucose Lactic Acid Calcium Prot Corrected Calcium Phosphorus Magnesium Total Bilirubin AST ALT Alkaline Phosphatase Ammonia Total Protein Albumin TSH 01/21/18 01/21/18 01/21/18 10:18 10:18 10:18 WBC RBC Hgb Hct MCV MCH MCHC RDW Plt Count MPV Neut % (Auto) Lymph % (Auto) [place] % (Auto) Eos % (Auto) Baso % (Auto) Neut # (Auto) Lymph # (Auto) [place] # (Auto) Eos # (Auto) Baso # (Auto) WBC Differential Differential Comment PT INR APTT Puncture Site Patient Temperature O2 Saturation ABG pH ABG pCO2 ABG pO2 ABG HCO3 ABG O2 Content ABG Base Excess ABG Methemoglobin Tio Test Hemoglobin Carboxyhemoglobin O2 Delivery Device Liter Flow Vent Setting Inspired O2 Critical Value Sodium 144 Potassium 4.1 Chloride 111 H Carbon Dioxide 25.1 Anion Gap 8 BUN 10 Creatinine 0.54 Estimated GFR Greater than 89 Random Glucose 243 H Lactic Acid 5.3 H* Calcium 7.4 L* Prot Corrected Calcium 8.2 L Phosphorus 3.3 Magnesium 1.9 Total Bilirubin 0.2 AST 64 H ALT 57 H Alkaline Phosphatase 86 Ammonia 35 H Total Protein 5.6 L Albumin 1.7 L TSH 9.480 H 01/21/18 10:48 WBC RBC Hgb Hct MCV MCH MCHC RDW Plt Count MPV Neut % (Auto) Lymph % (Auto) [place] % (Auto) Eos % (Auto) Baso % (Auto) Neut # (Auto) Lymph # (Auto) [place] # (Auto) Eos # (Auto) Baso # (Auto) WBC Differential Differential Comment PT INR APTT Puncture Site Right radial Patient Temperature 98.6 O2 Saturation 98 ABG pH 7.32 L ABG pCO2 43 H ABG pO2 138 H ABG HCO3 21 L ABG O2 Content 15.4 ABG Base Excess -3.7 L ABG Methemoglobin 0.3 Tio Test + Hemoglobin 11.0 L Carboxyhemoglobin 0.9 O2 Delivery Device Ventilator Liter Flow Vent Setting See comments Inspired O2 50 Critical Value No Sodium Potassium Chloride Carbon Dioxide Anion Gap BUN Creatinine Estimated GFR Random Glucose Lactic Acid Calcium Prot Corrected Calcium Phosphorus Magnesium Total Bilirubin AST ALT Alkaline Phosphatase Ammonia Total Protein Albumin TSH Microbiology 01/18/18 11:02 Blood - Peripheral Aerobic Blood Culture - Preliminary No growth in 3 days 01/18/18 11:02 Blood - Peripheral Anaerobic Blood Culture - Preliminary No growth in 3 days 01/18/18 11:07 Blood - Peripheral Aerobic Blood Culture - Preliminary No growth in 3 days 01/18/18 11:07 Blood - Peripheral Anaerobic Blood Culture - Preliminary No growth in 3 days - Imaging Impressions Chest X-Ray 01/21/18 00:00 CONCLUSION: Left central line has been withdrawn slightly but tip is probably still within the azygos vein. Nasogastric tube has been placed, seen entering stomach. Chest X-Ray 01/21/18 00:00 CONCLUSION: Repositioning of left central line tip into the superior vena cava in good position. Chest X-Ray 01/21/18 10:09 CONCLUSION: Compared with January 18 there is an increase in basilar airspace disease and pleural effusions. Left IJ line tip extends cephalad, possibly in the superior vena cava or azygos vein. Endotracheal tube in good position. Assessment and Plan - Assessment (1) Sepsis Code(s): A41.9 - Sepsis, unspecified organism Status: Acute (2) Community acquired bacterial pneumonia Code(s): J15.9 - Unspecified bacterial pneumonia Status: Acute (3) Hypotension Code(s): I95.9 - Hypotension, unspecified Status: Acute - Plan 62-year-old female with Acute respiratory failure with Hypoxemia Halicat called CXR , ABG ordered Treatment with Solu Medrol 125 IV x 1, Lasix 20 mg IV x1 Transferred to [facility] for intubation Sepsis: Source due to community-acquired pneumonia Status post azithromycin, Rocephin and azithromycin Continue cefepime Community-acquired pneumonia associate with respiratory failure Chest x-ray noted and reviewed by me with finding representing likely infiltrate involving left lower lung Continue cefepime, Mucinex; Start Symbicort Continue Solu-Medrol 20 mg every 12 hours, bronchodilators maintain oxygen saturation above 92% Perform Walk test prior to discharge blood cultures NTD Lung mass Status post bronchoscopy patient's machine stonecutter, Dr. Adames ff Hypotension Improving, monitor BP History of hypertension and other chronic medical conditions Continue outpatient medication except antihypertensive medications until BP improved DVT prophylaxis: Lovenox
[2018-01-21] MEDS: Oral Hygiene Kit OROPHARYNG SCH ×2 (12:27→17:07)
[2018-01-21] MEDS: Azithromycin Inj 500 MG in Sodium Chlor 0.9% Inj 250 ML IV.SIG SCH (12:27)
--- NOTE | 2018-01-21 12:47 | US ---
EXAM DATE: 01/21/2018 12:43 PM EDT AGE/SEX: 62 years / Female INDICATIONS: Bilateral leg swelling. CLINICAL DATA: This is the patient's initial encounter. Patient reports that signs and symptoms have been present for 1 day and indicates a pain score of Nonresponsive. MEDICAL/SURGICAL HISTORY: Chronic obstructive pulmonary disease. Anxiety disorder. Benzodiazepi ne use. Hyperlipidemia. Irritable bowel syndrome. Osteopenia. Hysterectomy. Cholecystectomy. Tubal ligation. Breast implant. COMPARISON: No prior exams available for comparison. TECHNIQUE: Venous ultrasound of both lower extremities was performed from the inguinal ligament to t he proximal calf. Real-time, color Doppler and spectral tracing, compression and augmentation techni ques were used. FINDINGS: Right Leg: Normal compression of the deep venous system from the inguinal region to the proximal vannessa f. No echogenic clot is seen. Normal response of the venous system to augmentation and respiration. Left Leg: Normal compression of the deep venous system from the inguinal region to the proximal calf . No echogenic clot is seen. Normal response of the venous system to augmentation and respiration. Other: None. CONCLUSION: 1. The study is negative for bilateral lower extremity deep venous thrombosis. Electronically signed by: Otf Small MD 01/21/2018 12:46 PM EDT
--- NOTE | 2018-01-21 13:02 | ECHRPT ---
Indication: Heart Failure CONCLUSIONS The left ventricular systolic function is severely reduced with an estimated ejection fraction less than 20%. Normal left ventricular size. Wall thickness is normal. There is global left ventricular dysfunction. There is a small pericardial effusion present. A left sided pleural effusion is present. Mild mitral valve regurgitation. BP: / HR: Rhythm: Sinus MEASUREMENTS (Male / Female) Normal Values Technical Quality:Good 2D ECHO LV Diastolic Diameter PLAX 3.8 cm 4.2 - 5.9 / 3.9 - 5.3 cm LV Systolic Diameter PLAX 3.6 cm IVS Diastolic Thickness 0.7 cm 0.6 - 1.0 / 0.6 - 0.9 cm LVPW Diastolic Thickness 0.7 cm 0.6 - 1.0 / 0.6 - 0.9 cm LV Relative Wall Thickness 0.4 RV Internal Dim ED PLAX 1.8 cm LV Ejection Fraction MOD 4C 17.2 % LV Ejection Fraction 4C AL 18.1 % FINDINGS LEFT VENTRICLE The left ventricular systolic function is severely reduced with an estimated ejection fraction less than 20%. Normal left ventricular size. Wall thickness is normal. There is global left ventricular dysfunction. RIGHT VENTRICLE Normal right ventricular size and systolic function. LEFT ATRIUM The left atrial size is mildly dilated. RIGHT ATRIUM The right atrial size is normal. ATRIAL SEPTUM Normal atrial septal thickness without atrial level shunting by limited color doppler interrogation. AORTA The aortic root and proximal ascending aorta are normal in size on limited imaging. MITRAL VALVE Mild thickening of the mitral valve leaflets. Mild mitral valve regurgitation. AORTIC VALVE Trileaflet aortic valve. No aortic valve stenosis or regurgitation. TRICUSPID VALVE Structurally normal tricuspid valve. No tricuspid valve stenosis or regurgitation. PULMONARY VALVE The pulmonary valve is not well visualized. VESSELS The inferior vena cava is normal in size. PERICARDIUM There is a small pericardial effusion present. A left sided pleural effusion is present. Kiet Flores MD, FACC (Electronically Signed) Final Date:21 January 2018 13:01
[2018-01-21 13:37] LABS: Free T4 (Free Thyroxine) 0.88 ng/dL (0.76-1.46); Triiodothyronine (T3) Free 1.37 pg/mL (2.18-3.98)
[2018-01-21 13:48] LABS: Troponin I 1.33 ng/mL (0.02-0.05)
[2018-01-21] MEDS: Midazolam 50 MG/50 ML Inj 50 MG/50 ML BAG IV.CONT PRN ×2 (14:06→20:42)
[2018-01-21] MEDS: Norepinephrine Inj 16 MG in Sodium Chlor 0.9% Inj 234 ML IV.CONT PRN (14:21)
[2018-01-21] MEDS ORDERED: Albumin Human 25% Inj 100 ML IV.SIG ONE (15:00)
[2018-01-21] MEDS: Vasopressin Inj 40 UNIT in Sodium Chlor 0.9% Inj 98 ML IV.CONT SCH (15:53)
[2018-01-21 15:58] LABS: Bilirubin,Urine Negative (Negative); Clarity,Urine Clear (Clear); Color,Urine Colorless (Yellw/Straw); Glucose,Urine (UA) Negative (Negative); Leukocyte Esterase,Urine Negative (Negative); Nitrite,Urine Negative (Negative); Specific Gravity,Urine 1.008 (1.002-1.035)
--- NOTE | 2018-01-21 16:25 | P.PN ---
Subjective Interval history: ALERT ON THE VENTILATOR Physical Exam Vital signs: Vital Signs 01/20/18 19:04 01/20/18 19:05 01/20/18 19:06 Temperature Pulse Rate 91 H Respiratory Rate 18 Blood Pressure Pulse Oximetry 95 95 01/20/18 19:55 01/20/18 20:00 01/20/18 23:54 Temperature 97.8 F Pulse Rate 93 H 85 75 Respiratory Rate 17 Blood Pressure 131/60 Pulse Oximetry 95 01/21/18 00:00 01/21/18 03:40 01/21/18 04:00 Temperature 97.8 F 97.3 F L Pulse Rate 90 94 H 113 H Respiratory Rate 17 24 21 Blood Pressure 113/62 144/81 H Pulse Oximetry 95 91 L 01/21/18 04:03 01/21/18 07:53 01/21/18 09:10 Temperature Pulse Rate 118 H 107 H 147 H Respiratory Rate 17 42 H Blood Pressure Pulse Oximetry 97 97 01/21/18 10:17 01/21/18 11:25 01/21/18 15:12 Temperature Pulse Rate 144 H 101 H Respiratory Rate 15 19 19 Blood Pressure Pulse Oximetry 100 99 100 Intake & Output 01/20/18 01/21/18 01/21/18 18:59 06:59 18:59 Intake Total 1300 / 1300 1560 / 1560 Output Total 400 / 400 Balance 900 / 900 1560 / 1560 Weight 44.4 kg Intake: IV 700 / 700 850 / 850 NS Inj 1,000 ML @ 100 mls/hr IV 500 / 500 750 / 750 .CONT .Q10H ANGELA Rx#:[id number] Maxipime Inj 2,000 MG In NS Inj 200 / 200 100 / 100 100 ML @ 200 mls/hr IV.SIG Q8H ANGELA Rx#:[id number] Oral 600 / 600 710 / 710 Output: Urine 400 / 400 Other: Date of Last Bowel Movement 01/20/18 01/21/18 # Bowel Movements 0 Narrative: GENERAL: ALERT ON VENT SUPPORT SKIN: Warm and dry. HEAD: Normocephalic. EYES: No scleral icterus. No injection or drainage. NECK: Supple, trachea midline. No JVD or lymphadenopathy. CARDIOVASCULAR: Regular rate and rhythm without murmurs, gallops, or rubs. RESPIRATORY: Breath sounds decrease bilaterally. + accessory muscle use. GASTROINTESTINAL: Abdomen soft, non-tender, nondistended. MUSCULOSKELETAL: No cyanosis, or edema. BACK: Nontender without obvious deformity. No CVA tenderness. - Urinary Catheter Management Indwelling Urethral Catheter Cath placed during this visit: no Reason for continuing: Acute urinary retention Results - Labs CBC & Chem 7: 01/21/18 10:18 01/21/18 10:18 Laboratory Results - last 24 hr 01/21/18 01/21/18 01/21/18 09:05 10:18 10:18 WBC 14.4 H RBC 3.83 L Hgb 10.8 L Hct 34.2 L MCV 89.3 MCH 28.1 MCHC 31.5 L RDW 16.4 Plt Count 402 MPV 6.9 L Neut % (Auto) 80.0 H Lymph % (Auto) 12.7 [place] % (Auto) 7.3 Eos % (Auto) 0.0 Baso % (Auto) 0.0 Neut # (Auto) 11.5 H Lymph # (Auto) 1.8 [place] # (Auto) 1.1 H Eos # (Auto) 0.0 Baso # (Auto) 0.0 WBC Differential . Differential Comment Auto diff final PT 11.4 INR 1.1 APTT 22.7 L Puncture Site Right radial Patient Temperature 98.6 O2 Saturation 94 ABG pH 7.26 L* ABG pCO2 49 H ABG pO2 94 ABG HCO3 21 L ABG O2 Content 15.3 ABG Base Excess -4.6 L ABG Methemoglobin 0.9 Tio Test Present Hemoglobin 11.4 L Carboxyhemoglobin 0.9 O2 Delivery Device Nasal cannula Liter Flow 6.00 Vent Setting Inspired O2 21 Critical Value Yes Sodium Potassium Chloride Carbon Dioxide Anion Gap BUN Creatinine Estimated GFR Random Glucose Lactic Acid Calcium Prot Corrected Calcium Phosphorus Magnesium Total Bilirubin AST ALT Alkaline Phosphatase Ammonia Total Creatine Kinase Troponin I B-Natriuretic Peptide Total Protein Albumin TSH Free T4 Free T3 Urine Color Urine Clarity Urine pH Ur Specific [place] Urine Protein Urine Glucose (UA) Urine Ketones Urine Occult Blood Urine Nitrate Urine Bilirubin Urine Urobilinogen Ur Leukocyte Esterase Urine WBC Micro UA Comment Urine Culture Comments 01/21/18 01/21/18 01/21/18 10:18 10:18 10:18 WBC RBC Hgb Hct MCV MCH MCHC RDW Plt Count MPV Neut % (Auto) Lymph % (Auto) [place] % (Auto) Eos % (Auto) Baso % (Auto) Neut # (Auto) Lymph # (Auto) [place] # (Auto) Eos # (Auto) Baso # (Auto) WBC Differential Differential Comment PT INR APTT Puncture Site Patient Temperature O2 Saturation ABG pH ABG pCO2 ABG pO2 ABG HCO3 ABG O2 Content ABG Base Excess ABG Methemoglobin Tio Test Hemoglobin Carboxyhemoglobin O2 Delivery Device Liter Flow Vent Setting Inspired O2 Critical Value Sodium 144 Potassium 4.1 Chloride 111 H Carbon Dioxide 25.1 Anion Gap 8 BUN 10 Creatinine 0.54 Estimated GFR Greater than 89 Random Glucose 243 H Lactic Acid 5.3 H* Calcium 7.4 L* Prot Corrected Calcium 8.2 L Phosphorus 3.3 Magnesium 1.9 Total Bilirubin 0.2 AST 64 H ALT 57 H Alkaline Phosphatase 86 Ammonia 35 H Total Creatine Kinase Troponin I B-Natriuretic Peptide Total Protein 5.6 L Albumin 1.7 L TSH 9.480 H Free T4 Free T3 Urine Color Urine Clarity Urine pH Ur Specific [place] Urine Protein Urine Glucose (UA) Urine Ketones Urine Occult Blood Urine Nitrate Urine Bilirubin Urine Urobilinogen Ur Leukocyte Esterase Urine WBC Micro UA Comment Urine Culture Comments 01/21/18 01/21/18 01/21/18 10:18 10:18 10:18 WBC RBC Hgb Hct MCV MCH MCHC RDW Plt Count MPV Neut % (Auto) Lymph % (Auto) [place] % (Auto) Eos % (Auto) Baso % (Auto) Neut # (Auto) Lymph # (Auto) [place] # (Auto) Eos # (Auto) Baso # (Auto) WBC Differential Differential Comment PT INR APTT Puncture Site Patient Temperature O2 Saturation ABG pH ABG pCO2 ABG pO2 ABG HCO3 ABG O2 Content ABG Base Excess ABG Methemoglobin Tio Test Hemoglobin Carboxyhemoglobin O2 Delivery Device Liter Flow Vent Setting Inspired O2 Critical Value Sodium Potassium Chloride Carbon Dioxide Anion Gap BUN Creatinine Estimated GFR Random Glucose Lactic Acid Calcium Prot Corrected Calcium Phosphorus Magnesium Total Bilirubin AST ALT Alkaline Phosphatase Ammonia Total Creatine Kinase 41 Troponin I 1.33 H* B-Natriuretic Peptide 1444 H Total Protein Albumin TSH Free T4 0.88 Free T3 1.37 L Urine Color Urine Clarity Urine pH Ur Specific [place] Urine Protein Urine Glucose (UA) Urine Ketones Urine Occult Blood Urine Nitrate Urine Bilirubin Urine Urobilinogen Ur Leukocyte Esterase Urine WBC Micro UA Comment Urine Culture Comments 01/21/18 01/21/18 10:48 11:35 WBC RBC Hgb Hct MCV MCH MCHC RDW Plt Count MPV Neut % (Auto) Lymph % (Auto) [place] % (Auto) Eos % (Auto) Baso % (Auto) Neut # (Auto) Lymph # (Auto) [place] # (Auto) Eos # (Auto) Baso # (Auto) WBC Differential Differential Comment PT INR APTT Puncture Site Right radial Patient Temperature 98.6 O2 Saturation 98 ABG pH 7.32 L ABG pCO2 43 H ABG pO2 138 H ABG HCO3 21 L ABG O2 Content 15.4 ABG Base Excess -3.7 L ABG Methemoglobin 0.3 Tio Test + Hemoglobin 11.0 L Carboxyhemoglobin 0.9 O2 Delivery Device Ventilator Liter Flow Vent Setting See comments Inspired O2 50 Critical Value No Sodium Potassium Chloride Carbon Dioxide Anion Gap BUN Creatinine Estimated GFR Random Glucose Lactic Acid Calcium Prot Corrected Calcium Phosphorus Magnesium Total Bilirubin AST ALT Alkaline Phosphatase Ammonia Total Creatine Kinase Troponin I B-Natriuretic Peptide Total Protein Albumin TSH Free T4 Free T3 Urine Color Colorless Urine Clarity Clear Urine pH 5.0 Ur Specific [place] 1.008 Urine Protein Negative Urine Glucose (UA) Negative Urine Ketones Negative Urine Occult Blood Negative Urine Nitrate Negative Urine Bilirubin Negative Urine Urobilinogen Less than 2 Ur Leukocyte Esterase Negative Urine WBC Less than 1 Micro UA Comment Cath-culture not ind Urine Culture Comments Cath-cult not ind Microbiology 01/18/18 11:02 Blood - Peripheral Aerobic Blood Culture - Preliminary No growth in 3 days 01/18/18 11:02 Blood - Peripheral Anaerobic Blood Culture - Preliminary No growth in 3 days 01/18/18 11:07 Blood - Peripheral Aerobic Blood Culture - Preliminary No growth in 3 days 01/18/18 11:07 Blood - Peripheral Anaerobic Blood Culture - Preliminary No growth in 3 days - Imaging Impressions Chest X-Ray 01/21/18 00:00 CONCLUSION: Left central line has been withdrawn slightly but tip is probably still within the azygos vein. Nasogastric tube has been placed, seen entering stomach. Chest X-Ray 01/21/18 00:00 CONCLUSION: Repositioning of left central line tip into the superior vena cava in good position. Venous Doppler Study 01/21/18 00:00 CONCLUSION: 1. The study is negative for bilateral lower extremity deep venous thrombosis. Chest X-Ray 01/21/18 10:09 CONCLUSION: Compared with January 18 there is an increase in basilar airspace disease and pleural effusions. Left IJ line tip extends cephalad, possibly in the superior vena cava or azygos vein. Endotracheal tube in good position. Assessment and Plan - Plan ASSWESSMENT RESPIRATORY FAILURE SEPSIS/PNA BRONCH CULTURE AND CYTO NEGATIVE CHF EF 15% PLAN VENT SUPPORT ANTIBX CT CHEST OUTLOOK POOR
--- NOTE | 2018-01-21 17:16 | CT ---
EXAM DATE: 01/21/2018 4:51 PM EDT AGE/SEX: 62 years / Female INDICATIONS: Respiratory distress, evaluate for pulmonary embolism. CLINICAL DATA: This is the patient's initial encounter. Patient reports that signs and symptoms have been present for 1 day and indicates a pain score of Nonresponsive. MEDICAL/SURGICAL HISTORY: Chronic obstructive pulmonary disease. Osteopenia. Hypotension. Sepsis. L anna mass. Cholecystectomy. Back fusion. RADIATION DOSE: 5.75 CTDI (mGy) COMPARISON: POI, CT CHEST W/ CONTRAST, 11/29/2017. . TECHNIQUE: Volumetric scanning was performed using a multi-row detector CT scanner during bolus infu omar of 75 ml Omnipaque 350 (iohexol) nonionic water-soluble contrast as a single exam dose. The rubia a was post processed with a variety of visualization algorithms including full volume maximum intensi ty projection and sliding thin slab reformation. Using automated exposure control and adjustment of the mA and/or kV according to patient size, radiation dose was kept as low as reasonably achievable t o obtain optimal diagnostic quality images. DICOM format image data is available electronically for review and comparison. FINDINGS: Pulmonary Arteries: Large intraluminal filling defects in the proximal segmental branches of the lef t pulmonary artery with very little flow in the left lower lobe subsegmental branches. Right pulmonar y artery appears patent. No evidence for significant right heart strain at this time. Lung: Persistent prominent cavitation in the left upper lobe with interval development of left lower lobe airspace consolidation with air bronchograms. There is significant associated volume loss in th e left hemithorax. Persistent prominent centrilobular emphysema throughout the right lung with ground glass opacities in the lower lobe. Pleura: Loculated very small pleural effusion in the right lung base. Mediastinum: Patient is intubated with ET tube in good position. There is a left IJ central line in place. Small pericardial effusion. Osseous Structures: No definite focal lytic or blastic bony lesion. Other: Visulaized upper abdomen demonstrates perihepatic ascites fluid. CONCLUSION: 1. Pulmonary artery emboli involving nearly all of the segmental branches of the left pulmonary timothy ry. Overall thrombus burden is moderate to large. There is no definitive CT evidence for right heart strain although reflux of contrast into the hepatic veins may reflect right heart dysfunction. 2. Persistent prominent left upper lobe cavitation with new left lower lobe airspace consolidation w ith air bronchograms. Progressive volume loss with mediastinal shift to the left. 3. Very small loculated right pleural effusion. 4. Small pericardial effusion. 5. Small perihepatic ascites fluid. Electronically signed by: Otf Small MD 01/21/2018 5:15 PM EDT
--- NOTE | 2018-01-21 17:22 | CT ---
EXAM DATE: 01/21/2018 4:54 PM EDT AGE/SEX: 62 years / Female INDICATIONS: Altered mental status. CLINICAL DATA: This is the patient's initial encounter. Patient reports that signs and symptoms have been present for 1 day and indicates a pain score of Nonresponsive. MEDICAL/SURGICAL HISTORY: Chronic obstructive pulmonary disease. Sepsis. Osteopenia. Hypotension. None. RADIATION DOSE: 56.35 CTDI (mGy) COMPARISON: No prior exams available for comparison. TECHNIQUE: CT of the head without contrast. Using automated exposure control and adjustment of the mA and/or kV according to patient size, radiation dose was kept as low as reasonably achievable to ob tain optimal diagnostic quality images. DICOM format image data is available electronically for revi ew and comparison. FINDINGS: There are focal areas of somewhat wedge-shaped low attenuation in the right cerebellar hemisphere and right occipital lobe as well as medial temporal lobe most characteristic of subacute or older infarc ts. No hemorrhage, mass effect or shift. No hydrocephalus. No abnormal extra-axial fluid collections. CONCLUSION: 1. 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 . Electronically signed by: Galindo Perkins MD 01/21/2018 5:21 PM EDT
--- NOTE | 2018-01-21 17:32 | MB ---
cc: Fan Cline MD DATE: 01/21/2018 REASON FOR CONSULTATION: Evaluation of ejection fraction below 20%. HISTORY OF PRESENT ILLNESS: Vilma Arthur is a 62-year-old female who has previously seen my colleague, Dr. Alexandre. He last saw her on 10/27/2016. She has not been seen since then. At that time, she did have an echo Doppler study. Ejection fraction was normal at 57%. Apparently, the patient has severe COPD. She has had anorexia with tremendous weight loss, according to one of the daughters, and they having trouble getting her to eat anything. She was into the ICU and she has respiratory failure, currently on a ventilator. Chest x-ray is extremely abnormal. Echo is showing an EF below 20%. She is on quadruple concentrated IV Levophed at the moment to support her blood pressure and on ventilator support. PAST MEDICAL HISTORY: I cannot obtain any history from the patient. Chart from 2017 showed she had COPD, fibromyalgia, hyperlipidemia, hypertension, irritable bowel syndrome and previous spontaneous pneumothorax as a child. PAST SURGICAL HISTORY: Includes breast augmentation, hysterectomy, lumbar back surgery, previous lung surgery. SOCIAL HISTORY: Notable for ongoing smoking up until this admission. PHYSICAL EXAMINATION: GENERAL: Reveals a severely cachectic white female. Her eyes are open. She is awake. HEENT: Shows some temporal wasting. NECK: Her CVP appears elevated. CHEST: Shows crackles in the bases bilaterally with a few expiratory wheezes. CARDIAC: S1, S2. Tachycardic with a soft S3. No murmur. ABDOMEN: Soft. EXTREMITIES: Reveal trace edema at the ankle. There is mildly reduced peripheral perfusion. LABORATORY DATA: EKG does not show evidence for Q waves to indicate an infarction. There are nonspecific ST-T wave changes. Chest x-ray is extremely abnormal. Please see report. BNP is elevated at 1444. Albumin is only 1.7, indicating malnutrition. Lactic acid is 5.3. IMPRESSION: It looks like a combination of septic shock as well as cardiogenic shock. She is malnourished. It is possible she could have Beriberi. She has a lung mass for which Dr. Torres has done a bronchoscopy and we awaiting the results of the studies from that. She is pending to have a CT scan right now. RECOMMENDATIONS: I am ordering IV vitamins and IV thiamine for possibility of Beriberi. She is already on maximum hemodynamic support. Prognosis at this point appears terrible and I have prepared the family for that. Further therapy to be determined. MD TARAH Guzmán/patrica/lauren , 04:24 PM , 04:31 PM
[2018-01-21] MEDS ORDERED: Heparin Drip 25,000 UNIT/250 ML BAG IV.CONT PRN (17:42)
[2018-01-21] MEDS ORDERED: Heparin 10,000 UNITS/10 ML Vial (for IV use) IV.PUSH STA (17:42)
[2018-01-21] MEDS: Insulin NovoLOG Aspart Correctional Sugar Inj SQ SCH (18:33)
[2018-01-21] MEDS: Thiamine Inj 100 MG in Sodium Chlor 0.9% Inj 100 ML IV.SIG SCH (18:35)
[2018-01-21 19:39] LABS: Activated Partial Thrombo Time 26.8 sec (24.3-30.1); INR 1.3 Ratio; Prothrombin Time 13.2 sec (9.8-11.6)
[2018-01-21] MEDS: Chlorhexidine 0.12% Oral Kit 15 ML UDC OROPHARYNG SCH (20:46)
[2018-01-21] MEDS: Mirtazapine 15 MG Tablet PO SCH (20:46)
[2018-01-21] MEDS: Hypromellose 0.3% Opth Gel 10 GM Bottle EACH EYE SCH (21:00)
[2018-01-21 21:32] LABS: Hematocrit 32.8 % (35.0-46.0); Hemoglobin 10.1 gm/dL (11.6-15.3); Mean Corpuscular Hemoglobin 27.6 pg (27.0-34.0); Mean Corpuscular Volume 89.4 fL (80.0-100.0); Mean Platelet Volume 7.2 fL (7.0-11.0); Platelet Count 248 th/mm3 (150-450); Red Blood Count 3.67 mil/mm3 (4.00-5.30); Red Cell Distribution Width 16.3 % (11.6-17.2); White Blood Count 22.7 th/mm3 (4.0-11.0)
[2018-01-21 21:47] LABS: Mean Corpuscular HGB Conc 30.9 % (32.0-36.0)
[2018-01-21] MEDS: MULTIVITAMIN IV.SIG SCH (22:26)
[2018-01-21] MEDS: Vancomycin Inj 750 MG in Sodium Chlor 0.9% Inj 250 ML IV.SIG SCH (22:26)
[2018-01-21] MEDS: SOD CHLORIDE IV.SIG SCH (22:26)
[2018-01-21] MEDS ORDERED: Heparin 10,000 UNITS/10 ML Vial (for IV use) IV.PUSH PRN ×2 (23:42)
[2018-01-21] MEDS ORDERED: fentaNYL Citrate Inj 100 MCG/2 ML Ampul IV.PUSH ONE (23:45)
[2018-01-21] MEDS ORDERED: Aspirin 325 MG Tablet NG/OG ONE (23:45)
[2018-01-22] MEDS: Oral Hygiene Kit OROPHARYNG SCH ×4 (00:54→15:55)
[2018-01-22] MEDS: Midazolam 50 MG/50 ML Inj 50 MG/50 ML BAG IV.CONT PRN ×2 (01:50→13:01)
[2018-01-22] MEDS ORDERED: fentaNYL Citrate Inj 100 MCG/2 ML Ampul IV.PUSH ONE (03:45)
[2018-01-22 04:13] LABS: Baso % (Auto) 0.1 % (0.0-2.0); Hematocrit 33.8 % (35.0-46.0); Hemoglobin 10.5 gm/dL (11.6-15.3); Lymph # (Auto) 0.9 th/mm3 (1.0-4.8); Lymph % (Auto) 4.1 % (9.0-44.0); Mean Corpuscular Hemoglobin 27.8 pg (27.0-34.0); Mean Corpuscular Volume 89.6 fL (80.0-100.0); Mean Platelet Volume 7.5 fL (7.0-11.0); Mono # (Auto) 1.4 th/mm3 (0.0-0.9); Neut # (Auto) 20.8 th/mm3 (1.8-7.7); Neut % (Auto) 89.8 % (16.0-70.0); Platelet Count 222 th/mm3 (150-450); Red Blood Count 3.77 mil/mm3 (4.00-5.30); Red Cell Distribution Width 16.4 % (11.6-17.2); White Blood Count 23.1 th/mm3 (4.0-11.0)
[2018-01-22 04:31] LABS: Calcium 7.2 mg/dL (8.5-10.1); Carbon Dioxide 19.1 meq/L (21.0-32.0); Phosphorus 3.5 mg/dL (2.5-4.9); Potassium 4.4 meq/L (3.5-5.1)
[2018-01-22 04:51] LABS: Chol/HDL Ratio 2.01 Ratio; HDL Cholesterol 33.7 mg/dL (40.0-60.0); Total Protein 5.2 g/dL (6.4-8.2)
[2018-01-22 04:57] LABS: Troponin I 2.55 ng/mL (0.02-0.05)
[2018-01-22] MEDS ORDERED: Sodium Chlor 0.9% Inj 500 ML IV.SIG SCH (05:00)
[2018-01-22] MEDS: Insulin NovoLOG Aspart Correctional Sugar Inj SQ SCH ×4 (05:56→18:10)
--- NOTE | 2018-01-22 06:43 | XR ---
EXAM DATE: 01/22/2018 6:31 AM EDT AGE/SEX: 62 years / Female INDICATIONS: Shortness of breath, possible pulmonary disease. CLINICAL DATA: This is the patient's subsequent encounter. Patient reports that signs and symptoms h ave been present for 4 - 6 days and indicates a pain score of Nonresponsive. MEDICAL/SURGICAL HISTORY: . Hypertension. Chronic obstructive pulmonary disease. Emphysema, . mitral valve . Bilateral upper lobe removal, back stimulator COMPARISON: C, CHEST 1V SINGLE AP, 01/21/2018. [facility] [place], CTA PULMONARY W CONTRAST W 3D, 01/21/2018. C, CHEST 1V SINGLE AP, 01/21/2018. . FINDINGS: The ET tube tip is 2.3 cm from the rachelle. The NG tube tip is directed into the stomach. There is a l eft internal jugular central line placed with the tip overlying the SVC. Leads are seen. Projecting o chris the mid thoracic spine. Surgical hardware seen in the mid lumbar spine. There is increased densit y at the left base. There is silhouetting the left heart border and the left hemidiaphragm. No lung m arkings are seen in the left upper lung. There is pleural thickening over the left upper lung. There is interstitial disease seen throughout the right lung. There is some peaking of the right hemidiaphr agm which could be related to pleural disease and/or effusion. CONCLUSION: Dense consolidation involving the left mid and lower lung. Some degree of left effusion is likely als o present. Cavitary change seen in the left upper lung. Chronic interstitial disease seen throughout the right lung with some suspected focal pleural disease /effusion at the right base Electronically signed by: Guero Anne MD 01/22/2018 6:42 AM EDT
[2018-01-22] MEDS: Vasopressin Inj 40 UNIT in Sodium Chlor 0.9% Inj 98 ML IV.CONT SCH (06:58)
[2018-01-22 07:23] LABS: Lymphocytes 4 % (9-44); Metamyelocytes 1 % (0-1); Monocytes 3 % (0-8)
[2018-01-22 07:24] LABS: Platelet Estimate Normal (Normal); Platelet Morphology Normal (Normal); RBC Morphology Normal (Normal)
--- NOTE | 2018-01-22 07:43 | P.PNCC ---
Subjective Subjective Remarks/Hospital Course: This is a 62-year-old female. Date of admission 01/18/2018. Consult . Past medical history includes COPD, anxiety requiring benzodiazepines , osteoarthritis, inflammatory bowel disease, hyperlipidemia and osteopenia ysabel. She presents to [facility] on status post bronchoscopy with Dr. Torres. Those cultures are negative to date. Patient also had biopsy. She originally presented to Dr. Lanier/hematology with several month history of fatigue, weight loss fevers and chills. CT scan chest November 2007 revealed cavitation left upper lobe, bullous emphysematous changes left lower lobe and right hemithorax. Chronically elevated left hemidiaphragm. After bronchoscopy, blood cultures 2 were drawn. Patient was placed on cefepime. Patient resume normal state of health when became acutely short of breath this morning. Patient is quite tachypneic with respiratory rates in the 50s with using accessory muscles. Due to likely pending respiratory failure patient was electively intubated please see orders. Antibiotics been broadened. SUBJECTIVE: 01/22: Yesterday, 2 tachycardia revealed EF around 20%. Global left ventricular hypokinesis. RV normal. CT pulmonary angiogram revealed left pulmonary artery thrombus involving also the subsegments. Left upper lobe large cavitation with the left lower lobe infiltrate. Mediastinal shift. Small pericardial effusion. Small loculated right pleural effusion. Please see family discussion. Currently on heparin drip. Noted CT brain revealed subacute cerebellar/temporal and occipital strokes. Risk of spontaneous bleeding with alteplase discussed with family and they requested only heparin drip at the time. Noted there is still a bleeding risk with heparin drip.. Currently on norepinephrine drip at 8 mcg/min and vasopressin 0.04 units/minute. Objective Vital Signs / I&O: Vital Signs 01/21/18 07:53 01/21/18 09:00 01/21/18 09:10 Temperature Pulse Rate 107 H 149 H 147 H Respiratory Rate 17 42 H Blood Pressure Pulse Oximetry 97 97 01/21/18 10:00 01/21/18 10:17 01/21/18 11:25 Temperature 97.5 F L Pulse Rate 149 H 144 H Respiratory Rate 15 15 19 Blood Pressure 124/85 Pulse Oximetry 100 100 99 01/21/18 12:00 01/21/18 15:12 01/21/18 16:00 Temperature 97.7 F 97.7 F Pulse Rate 126 H 101 H 107 H Respiratory Rate 18 19 22 Blood Pressure 98/74 L 108/72 Pulse Oximetry 99 100 98 01/21/18 16:15 01/21/18 20:00 01/21/18 21:07 Temperature 97.7 F Pulse Rate 105 H 105 H Respiratory Rate 24 28 H Blood Pressure 106/79 Pulse Oximetry 100 100 100 01/22/18 00:00 01/22/18 00:56 01/22/18 04:00 Temperature 97.7 F 97.4 F L Pulse Rate 129 H 123 H 112 H Respiratory Rate 31 H 21 18 Blood Pressure 114/78 96/66 L Pulse Oximetry 100 100 100 01/22/18 04:38 Temperature Pulse Rate 120 H Respiratory Rate 20 Blood Pressure Pulse Oximetry 100 Intake & Output 01/21/18 01/22/18 01/22/18 18:59 06:59 18:59 Intake Total 1200 / 1200 689.5 / 689.5 351 / 351 Output Total 900 / 900 400 / 400 Balance 300 / 300 289.5 / 289.5 351 / 351 Weight 50.5 kg Intake: IV 1200 / 1200 557.5 / 557.5 351 / 351 Versed Inj 50 mg In 50 ml @ 2 100 / 100 MG/HR 2 mls/hr IV.CONT TITRATE PRN Rx#:[id number] NS Inj 1,000 ML @ 100 mls/hr IV 1000 / 1000 .CONT .Q10H ANGELA Rx#:[id number] Pitressin Inj 40 UNIT In NS Inj 100 / 100 98 ML @ 0.04 UNITS/MIN 6 mls/ hr IV.CONT CONT ANGELA Rx#: [id number] Azithromycin Inj 500 MG In NS 250 / 250 Inj 250 ML @ 250 mls/hr IV.SIG Q24H ANGELA Rx#:[id number] Maxipime Inj 2,000 MG In NS Inj 200 / 200 100 / 100 100 ML @ 200 mls/hr IV.SIG Q8H ANGELA Rx#:[id number] Thiamine Inj 100 MG In NS Inj 101 / 101 100 ML @ 100 mls/hr IV.SIG DAILY ANGELA Rx#:[id number] Vancomycin Inj 750 MG In NS Inj 257.5 / 257.5 250 ML @ 250 mls/hr IV.SIG Q12H ANGELA Rx#:[id number] Tube Feeding 132 / 132 Output: Urine 400 / 400 Urine Amount (Catheter) 900 / 900 Indwelling Urethral Catheter 900 / 900 Other: Date of Last Bowel Movement 01/21/18 01/21/18 # Bowel Movements 1 Result Diagrams: 01/22/18 03:45 01/22/18 03:45 Other Results: Microbiology 01/21/18 20:45 Stool Stool Occult Blood (JOSE) - Final Hemoccult negative 01/18/18 11:02 Blood - Peripheral Aerobic Blood Culture - Preliminary No growth in 3 days 01/18/18 11:02 Blood - Peripheral Anaerobic Blood Culture - Preliminary No growth in 3 days 01/18/18 11:07 Blood - Peripheral Aerobic Blood Culture - Preliminary No growth in 3 days 01/18/18 11:07 Blood - Peripheral Anaerobic Blood Culture - Preliminary No growth in 3 days 01/18/18 11:07 Nasal Wash Influenza Types A,B Antigen - Final Negative for FLU A and B antigen Infection due to influenza A or B cannot be ruled out since the antigen present in the sample may be below the detection limit of the test. Imaging: ITS Impressions Chest CTA 01/21/18 00:00 CONCLUSION: 1. Pulmonary artery emboli involving nearly all of the segmental branches of the left pulmonary artery. Overall thrombus burden is moderate to large. There is no definitive CT evidence for right heart strain although reflux of contrast into the hepatic veins may reflect right heart dysfunction. 2. Persistent prominent left upper lobe cavitation with new left lower lobe airspace consolidation with air bronchograms. Progressive volume loss with mediastinal shift to the left. 3. Very small loculated right pleural effusion. 4. Small pericardial effusion. 5. Small perihepatic ascites fluid. Head CT 01/21/18 00:00 CONCLUSION: 1. 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 . Venous Doppler Study 01/21/18 00:00 CONCLUSION: 1. The study is negative for bilateral lower extremity deep venous thrombosis. Chest X-Ray 01/22/18 06:00 CONCLUSION: Dense consolidation involving the left mid and lower lung. Some degree of left effusion is likely also present. Cavitary change seen in the left upper lung. Chronic interstitial disease seen throughout the right lung with some suspected focal pleural disease/effusion at the right base Objective Remarks: GENERAL: 62-year-old female, critically ill currently orotracheally intubated SKIN: Warm and dry. No rash HEAD: Atraumatic. Normocephalic. EYES: Pupils equal and round to members bilaterally and reactive. No scleral icterus. No injection or drainage. ENT: No nasal bleeding or discharge. Mucous membranes pink and moist. NECK: Trachea midline. No JVD. CARDIOVASCULAR: Tachycardic, RR. S1, S2 no S4 without murmur/click/gallops or rub RESPIRATORY: Diminished breath sounds throughout all left lung kinney anterior and posterior. No wheezing appreciated. GASTROINTESTINAL: Abdomen soft, non-tender, nondistended. Hypoactive bowel sounds are appreciated. MUSCULOSKELETAL: Extremities without significant peripheral edema. No obvious deformities. NEUROLOGICAL: Arousable on the ventilator. Moves all 4 extremities spontaneously to command. Strength appears equal symmetric. Assessment and Plan - Assessment and Plan Plan: Neuro/Psych: Chronic benzodiazepine use Anxiety disorder NOS Subacute right cerebellar, right occipital and right medial temporal CVA Currently on midazolam drip at 10 mg an hour and fentanyl drip at 250 mcg an hour for sedation/analgesia while intubated allergy to morphine is documented as fatigue. Goal of RA SS -2 Daily sedation vacation Acetaminophen 650 by tube every 6 hours as needed fever Continue mirtazapine 45 mg at night/home medication for depression/anxiety. Holding diazepam 5 mg 3 times daily/home medication Holding tizanidine 4 mg 2 times daily CV: Cardiogenic/septic shock Sinus tachycardia Hyperlipidemia Elevated troponin likely type type II non-STEMI demand ischemia Acute systolic heart failure ejection fraction less than 20% Lactic acidosis Currently on norepinephrine drip at 8 mcg/min and vasopressin 0.04 units an minute to maintain mean arterial pressure greater than equal 65. Trop 2.55. Recheck in a.m. follow trends Continue normal saline at 50 cc an hour Resume simvastatin 20 mg daily/home medication Dr. Cline following. Believes component of beriberi syndrome could be contributed. Started on thiamine/multivitamin Continue heparin drip and baby aspirin 81 mg daily. Unable to provide beta- ashley or DANIEL inhibitor due to hypotension/shock Continue heparin drip currently at 600 units an hour 2D echocardiogram revealed EF less than 20%. Global LV dysfunction. No RV strain appreciated. Essentially normal. Trending upward currently 6.1. Follow serially. Not ideal candidate for inotropic for clearance. Resp: Acute respiratory failure History of COPD Left submassive PE PRVC 16/500/1/5/40 Ventilator bundle Albuterol/ipratropium aerosols every 4 hours with albuterol aerosols every 2 hours as needed for dyspnea Methylprednisolone succinate 40 mg IV twice daily Currently in budesonide/formoterol 160/4.5 2 inhalation twice daily. Continue via ventilator Pulmonary telecommunications consultant with Dr. Noonan following CT pulmonary antrum revealed left pulmonary artery all segments essentially occluded. Noted RV no strain appreciated. Left upper lobe cavitation. Left lower lobe pneumonia. Right loculated pleural effusion. Small pericardial effusion. Small amount of ascites. Heparin drip as above see discussion. GI: Hypoalbuminemia Start Jevity 1.5 goal 35 cc an hour. Dietary consult agrees with this Lansoprazole for GI prophylaxis Docusate sodium/senna 1 tablet twice daily for bowel regimen : Cho catheter placement for accurate I's and O's in a critically ill patient. Check UA Endo: TSH 9.48. Sliding scale insulin with Accu-Cheks to maintain euglycemia every 6 hours aspart insulin low regimen Free T3 low. Normal T4. Will start levothyroxine the next few days she is to Renal: Monitor urine output Accurate I's and O's BMP pending Heme: Normocytic anemia Monitor CBC daily. Follow trends. No indication for transfusion of blood products at this time ID: Community acquired pneumonia/sepsis Currently on cefepime day #5 start 01/18. Blood cultures 2 01/18 no growth to date. Negative urine Legionella pneumococcal antigens influenza negative. Bronchoscopy samples negative 01/18 Add azithromycin and vancomycin day #2 Sputum, chlamydia, mycoplasma all ordered 01/21 MSK: Cachexia PT evaluate and treat. Weight gain encouraged FEN: Replace electrolytes as clinically indicated per ICU electrolyte protocol Access -Left IJ CVL day #2 placed 01/21 Prophylaxis -GI -lansoprazole - -DVT SCDs/heparin drip provides DVT prophylaxis 35 minutes critical care time D/W proxy. Poor outlook. Alt code status. Intubation only Stop vasopressors.
[2018-01-22] MEDS: Budesonide-Formoterol 160/4.5 MCG 6 GM Inhaler INH SCH ×2 (08:28→21:14)
[2018-01-22] MEDS: Chlorhexidine 0.12% Oral Kit 15 ML UDC OROPHARYNG SCH ×2 (08:40→21:13)
[2018-01-22] MEDS: Hypromellose 0.3% Opth Gel 10 GM Bottle EACH EYE SCH ×2 (08:41→21:13)
[2018-01-22] MEDS: Senna/Docusate Sodium 8.6/50 MG Tablet PO SCH ×2 (08:42→21:14)
[2018-01-22] MEDS: Thiamine Inj 100 MG in Sodium Chlor 0.9% Inj 100 ML IV.SIG SCH (08:43)
[2018-01-22] MEDS: MethylPREDNISolone Sod Succinate Inj 40 MG/ML Vial IV.PUSH SCH ×2 (08:43→21:14)
[2018-01-22] MEDS ORDERED: Enoxaparin Inj 40 MG/0.4 ML Syringe SQ SCH (09:00)
[2018-01-22] MEDS: Sod Chloride 0.9% Inj 1,000 ML IV.CONT SCH (10:46)
[2018-01-22] MEDS: Vancomycin Inj 750 MG in Sodium Chlor 0.9% Inj 250 ML IV.SIG SCH ×2 (10:47→22:00)
--- NOTE | 2018-01-22 11:07 | P.PNCA ---
Subjective Interval history: sedated on vent Physical Exam Vital signs: Vital Signs 01/21/18 11:25 01/21/18 12:00 01/21/18 15:12 Temperature 97.7 F Pulse Rate 144 H 126 H 101 H Respiratory Rate 19 18 19 Blood Pressure 98/74 L Pulse Oximetry 99 99 100 01/21/18 16:00 01/21/18 16:15 01/21/18 20:00 Temperature 97.7 F 97.7 F Pulse Rate 107 H 105 H Respiratory Rate 22 24 Blood Pressure 108/72 106/79 Pulse Oximetry 98 100 100 01/21/18 21:07 01/22/18 00:00 01/22/18 00:56 Temperature 97.7 F Pulse Rate 105 H 129 H 123 H Respiratory Rate 28 H 31 H 21 Blood Pressure 114/78 Pulse Oximetry 100 100 100 01/22/18 04:00 01/22/18 04:38 01/22/18 07:00 Temperature 97.4 F L Pulse Rate 112 H 120 H 124 H Respiratory Rate 18 20 27 H Blood Pressure 96/66 L Pulse Oximetry 100 100 01/22/18 08:00 Temperature Pulse Rate Respiratory Rate 26 H Blood Pressure Pulse Oximetry 30 L Intake & Output 01/21/18 01/22/18 01/22/18 18:59 06:59 18:59 Intake Total 1200 / 1200 689.5 / 689.5 552 / 552 Output Total 900 / 900 400 / 400 Balance 300 / 300 289.5 / 289.5 552 / 552 Weight 50.5 kg Intake: IV 1200 / 1200 557.5 / 557.5 552 / 552 Versed Inj 50 mg In 50 ml @ 2 100 / 100 MG/HR 2 mls/hr IV.CONT TITRATE PRN Rx#:[id number] NS Inj 1,000 ML @ 100 mls/hr IV 1000 / 1000 .CONT .Q10H ANGELA Rx#:[id number] Pitressin Inj 40 UNIT In NS Inj 100 / 100 98 ML @ 0.04 UNITS/MIN 6 mls/ hr IV.CONT CONT ANGELA Rx#: [id number] Azithromycin Inj 500 MG In NS 250 / 250 Inj 250 ML @ 250 mls/hr IV.SIG Q24H ANGELA Rx#:[id number] Maxipime Inj 2,000 MG In NS Inj 200 / 200 100 / 100 100 / 100 100 ML @ 200 mls/hr IV.SIG Q8H ANGELA Rx#:[id number] Thiamine Inj 100 MG In NS Inj 202 / 202 100 ML @ 100 mls/hr IV.SIG DAILY ANGELA Rx#:[id number] Vancomycin Inj 750 MG In NS Inj 257.5 / 257.5 250 ML @ 250 mls/hr IV.SIG Q12H ANGELA Rx#:[id number] Tube Feeding 132 / 132 Output: Urine 400 / 400 Urine Amount (Catheter) 900 / 900 Indwelling Urethral Catheter 900 / 900 Other: Date of Last Bowel Movement 01/21/18 01/21/18 01/21/18 # Bowel Movements 1 Narrative: GENERAL: ALERT ON VENT SUPPORT SKIN: Warm and dry. HEAD: Normocephalic. EYES: No scleral icterus. No injection or drainage. NECK: Supple, trachea midline. No JVD or lymphadenopathy. CARDIOVASCULAR: Tachycardic rate and rhythm without murmurs, gallops, or rubs. RESPIRATORY: Breath sounds decrease bilaterally GASTROINTESTINAL: Abdomen soft, non-tender, nondistended. MUSCULOSKELETAL: No cyanosis, or edema. - Urinary Catheter Management Indwelling Urethral Catheter Cath placed during this visit: no Reason for continuing: Acute urinary retention Assessment and Plan - Assessment (1) Left ventricular dysfunction Code(s): I51.9 - Heart disease, unspecified Status: Acute (2) Sepsis Code(s): A41.9 - Sepsis, unspecified organism Status: Acute (3) Hypotension Code(s): I95.9 - Hypotension, unspecified Status: Acute (4) Cachexia Code(s): R64 - Cachexia Status: Acute - Plan Patient continues on pressor support. Prognosis extremely poor.
[2018-01-22] MEDS: Azithromycin Inj 500 MG in Sodium Chlor 0.9% Inj 250 ML IV.SIG SCH (13:12)
[2018-01-22] MEDS: Norepinephrine Inj 16 MG in Sodium Chlor 0.9% Inj 234 ML IV.CONT PRN (14:01)
--- NOTE | 2018-01-22 14:56 | XR ---
EXAM DATE: 01/22/2018 2:50 PM EDT AGE/SEX: 62 years / Female INDICATIONS: Short of breath. CLINICAL DATA: This is the patient's subsequent encounter. Patient reports that signs and symptoms h ave been present for 4 - 6 days and indicates a pain score of Nonresponsive. MEDICAL/SURGICAL HISTORY: Hypertension. Chronic obstructive pulmonary disease. Emphysema. . M itral valve. Bilateral upper lobectomy. Back stimulator. COMPARISON: [facility], CHEST 1V SINGLE AP, 01/22/2018. . FINDINGS: Stable ETT, NGT coursing beyond the GE junction with tip omitted from the image and left IJ central l ine. Redemonstration of prominent cavitary change in the left upper lobe with left lower lobe airspac e consolidation and likely small pleural effusion. Persistent mild airspace consolidation in the righ t lung base. Diffuse interstitial prominence throughout the right lung. Cardiac silhouette is enlarge d. Remainder of the exam is unchanged. CONCLUSION: 1. No significant interval change. 2. Stable tubes and lines. 3. Persistent prominent cavitary change in the left upper lobe with dense left lower lobe airspace c onsolidation and likely trace pleural effusion. 4. Persistent mild airspace consolidation in the right lung base. Electronically signed by: Otf Small MD 01/22/2018 2:54 PM EDT
--- NOTE | 2018-01-22 15:56 | P.PN ---
Subjective Interval history: UNRESPONSIVE ON VENT SUPPORT ON PRESSORS Physical Exam Vital signs: Vital Signs 01/21/18 16:00 01/21/18 16:15 01/21/18 20:00 Temperature 97.7 F 97.7 F Pulse Rate 107 H 105 H Respiratory Rate 22 24 Blood Pressure 108/72 106/79 Pulse Oximetry 98 100 100 01/21/18 21:07 01/22/18 00:00 01/22/18 00:56 Temperature 97.7 F Pulse Rate 105 H 129 H 123 H Respiratory Rate 28 H 31 H 21 Blood Pressure 114/78 Pulse Oximetry 100 100 100 01/22/18 04:00 01/22/18 04:38 01/22/18 07:00 Temperature 97.4 F L Pulse Rate 112 H 120 H 124 H Respiratory Rate 18 20 27 H Blood Pressure 96/66 L Pulse Oximetry 100 100 01/22/18 08:00 01/22/18 09:00 01/22/18 11:54 Temperature 97.5 F L Pulse Rate 128 H 128 H 124 H Respiratory Rate 27 H 18 Blood Pressure 109/81 Pulse Oximetry 100 99 01/22/18 12:00 01/22/18 13:00 01/22/18 14:59 Temperature 97.4 F L Pulse Rate 124 H 114 H Respiratory Rate 18 18 18 Blood Pressure 99/75 L Pulse Oximetry 99 Intake & Output 01/21/18 01/22/18 01/22/18 18:59 06:59 18:59 Intake Total 1200 / 1200 689.5 / 689.5 1109.5 / 1109.5 Output Total 900 / 900 400 / 400 Balance 300 / 300 289.5 / 289.5 1109.5 / 1109.5 Weight 50.5 kg Intake: IV 1200 / 1200 557.5 / 557.5 1109.5 / 1109.5 Versed Inj 50 mg In 50 ml @ 2 100 / 100 50 / 50 MG/HR 2 mls/hr IV.CONT TITRATE PRN Rx#:[id number] Levophed Inj 16 MG In NS Inj 250 / 250 234 ML @ 2 MCG/MIN 1.87 mls/hr IV.CONT TITRATE PRN Rx#: [id number] NS Inj 1,000 ML @ 100 mls/hr IV 1000 / 1000 .CONT .Q10H ANGELA Rx#:[id number] Pitressin Inj 40 UNIT In NS Inj 100 / 100 98 ML @ 0.04 UNITS/MIN 6 mls/ hr IV.CONT CONT ANGELA Rx#: [id number] Azithromycin Inj 500 MG In NS 250 / 250 Inj 250 ML @ 250 mls/hr IV.SIG Q24H ANGELA Rx#:[id number] Maxipime Inj 2,000 MG In NS Inj 200 / 200 100 / 100 100 / 100 100 ML @ 200 mls/hr IV.SIG Q8H ANGELA Rx#:[id number] Thiamine Inj 100 MG In NS Inj 202 / 202 100 ML @ 100 mls/hr IV.SIG DAILY ANGELA Rx#:[id number] Vancomycin Inj 750 MG In NS Inj 257.5 / 257.5 257.5 / 257.5 250 ML @ 250 mls/hr IV.SIG Q12H ANGELA Rx#:[id number] Tube Feeding 132 / 132 Output: Urine 400 / 400 Urine Amount (Catheter) 900 / 900 Indwelling Urethral Catheter 900 / 900 Other: Date of Last Bowel Movement 01/21/18 01/21/18 01/21/18 # Bowel Movements 1 Narrative: GENERAL: UNRESPONSIVE ON VENT SUPPORT SKIN: Warm and dry. HEAD: Normocephalic. EYES: No scleral icterus. No injection or drainage. NECK: Supple, trachea midline. No JVD or lymphadenopathy. CARDIOVASCULAR: Tachycardic rate and rhythm without murmurs, gallops, or rubs. RESPIRATORY: Breath sounds decrease bilaterally GASTROINTESTINAL: Abdomen soft, non-tender, nondistended. MUSCULOSKELETAL: No cyanosis, or edema. - Urinary Catheter Management Indwelling Urethral Catheter Cath placed during this visit: no Reason for continuing: Acute urinary retention Results - Labs CBC & Chem 7: 01/22/18 03:45 01/22/18 03:45 Laboratory Results - last 24 hr 01/21/18 01/21/18 01/21/18 11:35 17:15 17:55 WBC RBC Hgb Hct MCV MCH MCHC RDW Plt Count MPV Prelim Diff (Auto) Neut % (Auto) Lymph % (Auto) Edwards % (Auto) Eos % (Auto) Baso % (Auto) Neut # (Auto) Lymph # (Auto) Edwards # (Auto) Eos # (Auto) Baso # (Auto) WBC Differential Seg Neuts % (Manual) Lymphocytes % (Manual) Monocytes % (Manual) Metamyelocytes % (Man) Abs Neuts (Manual) Differential Comment Platelet Estimate Platelet Morphology RBC Morphology PT 13.2 H INR 1.3 APTT 26.8 Sodium Potassium Chloride Carbon Dioxide Anion Gap BUN Creatinine Estimated GFR POC Glucose 108 Random Glucose Lactic Acid Calcium Prot Corrected Calcium Phosphorus Magnesium Troponin I Total Protein Triglycerides Cholesterol LDL Cholesterol, Calc HDL Cholesterol Cholesterol/HDL Ratio Urine Color Colorless Urine Clarity Clear Urine pH 5.0 Ur Specific [place] 1.008 Urine Protein Negative Urine Glucose (UA) Negative Urine Ketones Negative Urine Occult Blood Negative Urine Nitrate Negative Urine Bilirubin Negative Urine Urobilinogen Less than 2 Ur Leukocyte Esterase Negative Urine WBC Less than 1 Micro UA Comment Cath-culture not ind Urine Culture Comments Cath-cult not ind 01/21/18 01/21/18 01/21/18 21:02 21:02 23:48 WBC 22.7 H D RBC 3.67 L Hgb 10.1 L Hct 32.8 L MCV 89.4 MCH 27.6 MCHC 30.9 L RDW 16.3 Plt Count 248 D MPV 7.2 Prelim Diff (Auto) Neut % (Auto) Lymph % (Auto) Edwards % (Auto) Eos % (Auto) Baso % (Auto) Neut # (Auto) Lymph # (Auto) Edwards # (Auto) Eos # (Auto) Baso # (Auto) WBC Differential Seg Neuts % (Manual) Lymphocytes % (Manual) Monocytes % (Manual) Metamyelocytes % (Man) Abs Neuts (Manual) Differential Comment Platelet Estimate Platelet Morphology RBC Morphology PT INR APTT Sodium Potassium Chloride Carbon Dioxide Anion Gap BUN Creatinine Estimated GFR POC Glucose 232 H Random Glucose Lactic Acid Calcium Prot Corrected Calcium Phosphorus Magnesium Troponin I 1.76 H* D Total Protein Triglycerides Cholesterol LDL Cholesterol, Calc HDL Cholesterol Cholesterol/HDL Ratio Urine Color Urine Clarity Urine pH Ur Specific [place] Urine Protein Urine Glucose (UA) Urine Ketones Urine Occult Blood Urine Nitrate Urine Bilirubin Urine Urobilinogen Ur Leukocyte Esterase Urine WBC Micro UA Comment Urine Culture Comments 01/22/18 01/22/18 01/22/18 02:08 03:45 03:45 WBC 23.1 H RBC 3.77 L Hgb 10.5 L Hct 33.8 L MCV 89.6 MCH 27.8 MCHC 31.0 L RDW 16.4 Plt Count 222 MPV 7.5 Prelim Diff (Auto) Patient Consumer Marketer Neut % (Auto) 89.8 H Lymph % (Auto) 4.1 L Edwards % (Auto) 6.0 Eos % (Auto) 0.0 Baso % (Auto) 0.1 Neut # (Auto) 20.8 H Lymph # (Auto) 0.9 L Edwards # (Auto) 1.4 H Eos # (Auto) 0.0 Baso # (Auto) 0.0 WBC Differential Manual diff final Seg Neuts % (Manual) 92 H Lymphocytes % (Manual) 4 L Monocytes % (Manual) 3 Metamyelocytes % (Man) 1 Abs Neuts (Manual) 21.5 H Differential Comment Auto diff final Platelet Estimate Normal Platelet Morphology Normal RBC Morphology Normal PT INR APTT 81.2 H D Sodium Potassium Chloride Carbon Dioxide Anion Gap BUN Creatinine Estimated GFR POC Glucose Random Glucose Lactic Acid 6.1 H* Calcium Prot Corrected Calcium Phosphorus Magnesium Troponin I Total Protein Triglycerides Cholesterol LDL Cholesterol, Calc HDL Cholesterol Cholesterol/HDL Ratio Urine Color Urine Clarity Urine pH Ur Specific [place] Urine Protein Urine Glucose (UA) Urine Ketones Urine Occult Blood Urine Nitrate Urine Bilirubin Urine Urobilinogen Ur Leukocyte Esterase Urine WBC Micro UA Comment Urine Culture Comments 01/22/18 01/22/18 01/22/18 03:45 05:34 10:35 WBC RBC Hgb Hct MCV MCH MCHC RDW Plt Count MPV Prelim Diff (Auto) Neut % (Auto) Lymph % (Auto) Edwards % (Auto) Eos % (Auto) Baso % (Auto) Neut # (Auto) Lymph # (Auto) Edwards # (Auto) Eos # (Auto) Baso # (Auto) WBC Differential Seg Neuts % (Manual) Lymphocytes % (Manual) Monocytes % (Manual) Metamyelocytes % (Man) Abs Neuts (Manual) Differential Comment Platelet Estimate Platelet Morphology RBC Morphology PT INR APTT 45.7 H D Sodium 145 Potassium 4.4 Chloride 114 H Carbon Dioxide 19.1 L Anion Gap 12 BUN 17 Creatinine 0.73 Estimated GFR 81 L POC Glucose 162 H Random Glucose 172 H Lactic Acid Calcium 7.2 L* Prot Corrected Calcium 8.2 L Phosphorus 3.5 Magnesium 2.0 Troponin I 2.55 H* D Total Protein 5.2 L Triglycerides 69 Cholesterol 68 L LDL Cholesterol, Calc 21 HDL Cholesterol 33.7 L Cholesterol/HDL Ratio 2.01 Urine Color Urine Clarity Urine pH Ur Specific [place] Urine Protein Urine Glucose (UA) Urine Ketones Urine Occult Blood Urine Nitrate Urine Bilirubin Urine Urobilinogen Ur Leukocyte Esterase Urine WBC Micro UA Comment Urine Culture Comments 01/22/18 01/22/18 10:35 12:45 WBC RBC Hgb Hct MCV MCH MCHC RDW Plt Count MPV Prelim Diff (Auto) Neut % (Auto) Lymph % (Auto) Edwards % (Auto) Eos % (Auto) Baso % (Auto) Neut # (Auto) Lymph # (Auto) Edwards # (Auto) Eos # (Auto) Baso # (Auto) WBC Differential Seg Neuts % (Manual) Lymphocytes % (Manual) Monocytes % (Manual) Metamyelocytes % (Man) Abs Neuts (Manual) Differential Comment Platelet Estimate Platelet Morphology RBC Morphology PT INR APTT Sodium Potassium Chloride Carbon Dioxide Anion Gap BUN Creatinine Estimated GFR POC Glucose 168 H Random Glucose Lactic Acid 5.9 H* Calcium Prot Corrected Calcium Phosphorus Magnesium Troponin I Total Protein Triglycerides Cholesterol LDL Cholesterol, Calc HDL Cholesterol Cholesterol/HDL Ratio Urine Color Urine Clarity Urine pH Ur Specific [place] Urine Protein Urine Glucose (UA) Urine Ketones Urine Occult Blood Urine Nitrate Urine Bilirubin Urine Urobilinogen Ur Leukocyte Esterase Urine WBC Micro UA Comment Urine Culture Comments Microbiology 01/21/18 11:35 Urine - Catheterized Urine Streptococcus pneumoniae Antigen ( M - Final Presumptive negative for streptococcus pneumoniae antigen, suggesting no current or recent infection. Infection due to Streptococcus pneumoniae cannot be ruled out since the antigen present in the sample may be below the detection limit of the test. 01/21/18 11:35 Urine - Catheterized Urine Legionella Antigen - Final Presumptive negative for Legionella pneumophila serogroup 1 antigen in urine, suggesting no recent or recurrent infection. Infection due to Legionella cannot be ruled out since other serogroups and species may cause disease, antigen may not be present in urine in early infection, and the level of antigen present in the urine may be below the detection limit of the test. 01/18/18 11:02 Blood - Peripheral Aerobic Blood Culture - Preliminary No growth in 4 days 01/18/18 11:02 Blood - Peripheral Anaerobic Blood Culture - Preliminary No growth in 4 days 01/18/18 11:07 Blood - Peripheral Aerobic Blood Culture - Preliminary No growth in 4 days 01/18/18 11:07 Blood - Peripheral Anaerobic Blood Culture - Preliminary No growth in 4 days 01/21/18 20:45 Stool Stool Occult Blood (JOSE) - Final Hemoccult negative - Imaging Impressions Chest CTA 01/21/18 00:00 CONCLUSION: 1. Pulmonary artery emboli involving nearly all of the segmental branches of the left pulmonary artery. Overall thrombus burden is moderate to large. There is no definitive CT evidence for right heart strain although reflux of contrast into the hepatic veins may reflect right heart dysfunction. 2. Persistent prominent left upper lobe cavitation with new left lower lobe airspace consolidation with air bronchograms. Progressive volume loss with mediastinal shift to the left. 3. Very small loculated right pleural effusion. 4. Small pericardial effusion. 5. Small perihepatic ascites fluid. Head CT 01/21/18 00:00 CONCLUSION: 1. 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 . Chest X-Ray 01/22/18 00:00 CONCLUSION: 1. No significant interval change. 2. Stable tubes and lines. 3. Persistent prominent cavitary change in the left upper lobe with dense left lower lobe airspace consolidation and likely trace pleural effusion. 4. Persistent mild airspace consolidation in the right lung base. Chest X-Ray 01/22/18 06:00 CONCLUSION: Dense consolidation involving the left mid and lower lung. Some degree of left effusion is likely also present. Cavitary change seen in the left upper lung. Chronic interstitial disease seen throughout the right lung with some suspected focal pleural disease/effusion at the right base Assessment and Plan - Plan ASSWESSMENT RESPIRATORY FAILURE SEPSIS/PNA BRONCH CULTURE AND CYTO NEGATIVE CHF EF 15% PLAN VENT SUPPORT ANTIBX CT CHEST OUTLOOK POOR
--- NOTE | 2018-01-22 16:55 | ECG ---
Date Performed: 01/21/2018 Time Performed: 13:19:18 PTAGE: 62 years EKG: Accelerated idioventricular rhythm. Short NM interval. Atrial abnormality. Anterior ST-T ch anges are nonspecific Low QRS voltages in precordial leads When compared to previous tracing, axis re carol somewhat Rightward, no significant changes have occurred. Abnormal ECG PREVIOUS TRACING : 01/18/2018 11.22 DOCTOR: Don Ash Interpretating Date/Time 01/22/2018 16:54:40
--- NOTE | 2018-01-22 16:57 | ECG ---
Date Performed: 01/22/2018 Time Performed: 10:26:53 PTAGE: 62 years EKG: SINUS TACHYCARDIA WITH SHORT MD INTERVAL MARKED RIGHT AXIS DEVIATION LOW QRS VOLTAGE IN PRE CORDIAL LEADS MINIMAL ST DEPRESSION When compared to PREVIOUS TRACING , heart rate is faster. ABNORMAL ECG. PREVIOUS TRACIN01/21/2018 13.19 DOCTOR: Don Ash Interpretating Date/Time 01/22/2018 16:56:08
[2018-01-22] MEDS ORDERED: fentaNYL Citrate Inj 100 MCG/2 ML Ampul IV.PUSH PRN (17:04)
[2018-01-22] MEDS: fentaNYL Citrate Inj 100 MCG/2 ML Ampul IV.PUSH PRN (20:56)
[2018-01-22] MEDS: SOD CHLORIDE IV.SIG SCH (21:13)
[2018-01-22] MEDS: MULTIVITAMIN IV.SIG SCH (21:13)
[2018-01-22] MEDS: Mirtazapine 15 MG Tablet PO SCH (21:14)
[2018-01-23] MEDS: Insulin NovoLOG Aspart Correctional Sugar Inj SQ SCH ×3 (01:56→12:20)
[2018-01-23] MEDS: Oral Hygiene Kit OROPHARYNG SCH ×4 (01:57→16:21)
[2018-01-23] MEDS: Sod Chloride 0.9% Inj 1,000 ML IV.CONT SCH (06:02)
--- NOTE | 2018-01-23 06:05 | XR ---
EXAM DATE: 01/23/2018 5:35 AM EDT AGE/SEX: 62 years / Female INDICATIONS: Shortness of breath, possible pulmonary disease. CLINICAL DATA: This is the patient's subsequent encounter. Patient reports that signs and symptoms h ave been present for 4 - 6 days and indicates a pain score of Nonresponsive. MEDICAL/SURGICAL HISTORY: Hypertension. Chronic obstructive pulmonary disease. Emphysema. . M itral valve. Bilateral upper lobectomy. Back stimulator. COMPARISON: [facility], CTA PULMONARY W CONTRAST W 3D, 01/21/2018. . FINDINGS: The ET tube, NG tube and left internal jugular central line are well placed. Again noted is a spinal lead over the mid thoracic spine. Postsurgical changes seen in the lumbar spine. There is persistent increased density at the mid and lower left lung. This cavitary change in the left upper lung. The ri ght lung demonstrates interstitial prominence especially at the mid and lower right lung. There is falk zy density at the right base which may be secondary to effusion. CONCLUSION: Persistent consolidation or atelectasis involving the left mid and lower lung. Persistent cavitary change in the left upper lung. Chronic interstitial disease in the right lung. Suspected mild right pleural effusion. Electronically signed by: Gureo Anne MD 01/23/2018 6:04 AM EDT
[2018-01-23 06:09] LABS: Baso % (Auto) 0.1 % (0.0-2.0); Hematocrit 31.3 % (35.0-46.0); Hemoglobin 9.7 gm/dL (11.6-15.3); Lymph # (Auto) 0.8 th/mm3 (1.0-4.8); Lymph % (Auto) 2.3 % (9.0-44.0); Mean Corpuscular HGB Conc 31.1 % (32.0-36.0); Mean Corpuscular Hemoglobin 27.9 pg (27.0-34.0); Mean Corpuscular Volume 89.7 fL (80.0-100.0); Mean Platelet Volume 8.8 fL (7.0-11.0); Mono # (Auto) 1.2 th/mm3 (0.0-0.9); Mono % (Auto) 3.2 % (0.0-8.0); Neut # (Auto) 34.5 th/mm3 (1.8-7.7); Neut % (Auto) 94.4 % (16.0-70.0); Platelet Count 109 th/mm3 (150-450); Red Blood Count 3.49 mil/mm3 (4.00-5.30); Red Cell Distribution Width 16.6 % (11.6-17.2); White Blood Count 36.5 th/mm3 (4.0-11.0)
[2018-01-23] MEDS: Budesonide-Formoterol 160/4.5 MCG 6 GM Inhaler INH SCH (08:08)
[2018-01-23 08:12] VITALS: RESP 18
[2018-01-23] MEDS: Thiamine Inj 100 MG in Sodium Chlor 0.9% Inj 100 ML IV.SIG SCH (09:37)
[2018-01-23] MEDS: Chlorhexidine 0.12% Oral Kit 15 ML UDC OROPHARYNG SCH (09:38)
[2018-01-23] MEDS: Hypromellose 0.3% Opth Gel 10 GM Bottle EACH EYE SCH (09:39)
[2018-01-23] MEDS: Senna/Docusate Sodium 8.6/50 MG Tablet PO SCH (09:39)
[2018-01-23] MEDS: MethylPREDNISolone Sod Succinate Inj 40 MG/ML Vial IV.PUSH SCH (09:39)
[2018-01-23] MEDS ORDERED: Pharmacy Ordered Lab Info OTHER ONE (09:45)
[2018-01-23 09:46] LABS: Albumin 1.8 g/dL (3.4-5.0); Carbon Dioxide 20.6 meq/L (21.0-32.0); Phosphorus 2.5 mg/dL (2.5-4.9); Potassium 3.9 meq/L (3.5-5.1); Total Protein 4.5 g/dL (6.4-8.2)
[2018-01-23 09:56] LABS: Lymphocytes 2 % (9-44); Monocytes 2 % (0-8); Tallied Nucleated RBC 1 (0-0)
[2018-01-23 09:58] LABS: Platelet Morphology Normal (Normal); Toxic Granulation 2+
[2018-01-23] MEDS: Vancomycin Inj 750 MG in Sodium Chlor 0.9% Inj 250 ML IV.SIG SCH (10:08)
--- NOTE | 2018-01-23 11:16 | P.PNCC ---
Subjective Subjective Remarks/Hospital Course: This is a 62-year-old female. Date of admission 01/18/2018. Consult . Past medical history includes COPD, anxiety requiring benzodiazepines , osteoarthritis, inflammatory bowel disease, hyperlipidemia and osteopenia ysabel. She presents to [facility] on status post bronchoscopy with Dr. Torres. Those cultures are negative to date. Patient also had biopsy. She originally presented to Dr. Lanier/hematology with several month history of fatigue, weight loss fevers and chills. CT scan chest November 2007 revealed cavitation left upper lobe, bullous emphysematous changes left lower lobe and right hemithorax. Chronically elevated left hemidiaphragm. After bronchoscopy, blood cultures 2 were drawn. Patient was placed on cefepime. Patient resume normal state of health when became acutely short of breath this morning. Patient is quite tachypneic with respiratory rates in the 50s with using accessory muscles. Due to likely pending respiratory failure patient was electively intubated please see orders. Antibiotics been broadened. 01/22: Yesterday, 2 tachycardia revealed EF around 20%. Global left ventricular hypokinesis. RV normal. CT pulmonary angiogram revealed left pulmonary artery thrombus involving also the subsegments. Left upper lobe large cavitation with the left lower lobe infiltrate. Mediastinal shift. Small pericardial effusion. Small loculated right pleural effusion. Please see family discussion. Currently on heparin drip. Noted CT brain revealed subacute cerebellar/temporal and occipital strokes. Risk of spontaneous bleeding with alteplase discussed with family and they requested only heparin drip at the time. Noted there is still a bleeding risk with heparin drip.. Currently on norepinephrine drip at 8 mcg/min and vasopressin 0.04 units/minute. SUBJECTIVE: 01/23: Yesterday, family decided to withhold vasopressor support. Currently with very little urine output with elevated transaminases and acute kidney injury.. Family requesting to withdraw life support at the present time and with extubation. Waiting for second signature for articles per [facility] policy. Objective Vital Signs / I&O: Vital Signs 01/22/18 11:54 01/22/18 12:00 01/22/18 13:00 Temperature 97.4 F L Pulse Rate 124 H 124 H 114 H Respiratory Rate Blood Pressure 99/75 L Pulse Oximetry 99 99 01/22/18 14:59 01/22/18 16:00 01/22/18 20:00 Temperature 97.3 F L 99.1 F Pulse Rate 115 H 132 H Respiratory Rate 18 18 26 H Blood Pressure 106/57 L 101/55 L Pulse Oximetry 97 94 L 01/22/18 21:56 01/23/18 00:00 01/23/18 04:00 Temperature 98.1 F Pulse Rate 128 H 122 H Respiratory Rate 28 H 19 18 Blood Pressure 91/48 L 85/39 L Pulse Oximetry 93 L 95 94 L 01/23/18 04:14 01/23/18 07:00 01/23/18 08:00 Temperature 99.2 F Pulse Rate 111 H 112 H Respiratory Rate 18 18 Blood Pressure 78/45 L Pulse Oximetry 94 L 95 01/23/18 09:00 Temperature Pulse Rate 112 H Respiratory Rate Blood Pressure Pulse Oximetry Intake & Output 01/22/18 01/23/18 01/23/18 18:59 06:59 18:59 Intake Total 1643.5 / 1643.5 1110 / 1110 Output Total 150 / 150 100 / 100 Balance 1493.5 / 1493.5 1010 / 1010 Weight 49.4 kg Intake: IV 1359.5 / 1359.5 1110 / 1110 Versed Inj 50 mg In 50 ml @ 2 50 / 50 MG/HR 2 mls/hr IV.CONT TITRATE PRN Rx#:[id number] Levophed Inj 16 MG In NS Inj 250 / 250 234 ML @ 2 MCG/MIN 1.87 mls/hr IV.CONT TITRATE PRN Rx#: [id number] Azithromycin Inj 500 MG In NS 500 / 500 Inj 250 ML @ 250 mls/hr IV.SIG Q24H ANGELA Rx#:[id number] Maxipime Inj 2,000 MG In NS Inj 100 / 100 100 / 100 100 ML @ 200 mls/hr IV.SIG Q8H ANGELA Rx#:[id number] MVI-12 Inj 10 ML In NS Inj 1, 1010 / 1010 000 ML @ 50 mls/hr IV.SIG Q24H ANGELA Rx#:[id number] Thiamine Inj 100 MG In NS Inj 202 / 202 100 ML @ 100 mls/hr IV.SIG DAILY ANGELA Rx#:[id number] Vancomycin Inj 750 MG In NS Inj 257.5 / 257.5 250 ML @ 250 mls/hr IV.SIG Q12H ANGELA Rx#:[id number] Tube Feeding 234 / 234 0 / 0 Water Bolus Amount 50 / 50 0 / 0 Output: Urine 100 / 100 Urine Amount (Catheter) 150 / 150 Indwelling Urethral Catheter 150 / 150 Other: Date of Last Bowel Movement 01/22/18 01/23/18 01/22/18 # Bowel Movements 1 1 # Incontinent Bowel Movements 1 Result Diagrams: 01/23/18 04:54 01/23/18 08:40 Other Results: Microbiology 01/18/18 11:02 Blood - Peripheral Aerobic Blood Culture - Final No growth in 5 days 01/18/18 11:02 Blood - Peripheral Anaerobic Blood Culture - Final No growth in 5 days 01/18/18 11:07 Blood - Peripheral Aerobic Blood Culture - Final No growth in 5 days 01/18/18 11:07 Blood - Peripheral Anaerobic Blood Culture - Final No growth in 5 days 01/21/18 11:35 Urine - Catheterized Urine Streptococcus pneumoniae Antigen ( M - Final Presumptive negative for streptococcus pneumoniae antigen, suggesting no current or recent infection. Infection due to Streptococcus pneumoniae cannot be ruled out since the antigen present in the sample may be below the detection limit of the test. 01/21/18 11:35 Urine - Catheterized Urine Legionella Antigen - Final Presumptive negative for Legionella pneumophila serogroup 1 antigen in urine, suggesting no recent or recurrent infection. Infection due to Legionella cannot be ruled out since other serogroups and species may cause disease, antigen may not be present in urine in early infection, and the level of antigen present in the urine may be below the detection limit of the test. 01/21/18 20:45 Stool Stool Occult Blood (JOSE) - Final Hemoccult negative 01/18/18 11:07 Nasal Wash Influenza Types A,B Antigen - Final Negative for FLU A and B antigen Infection due to influenza A or B cannot be ruled out since the antigen present in the sample may be below the detection limit of the test. Imaging: Chest X-Ray 01/18/18 10:55 CONCLUSION: Extensive chronic changes bilaterally. Likely infiltrate involving left lower lung. Chest CTA 01/21/18 00:00 CONCLUSION: 1. Pulmonary artery emboli involving nearly all of the segmental branches of the left pulmonary artery. Overall thrombus burden is moderate to large. There is no definitive CT evidence for right heart strain although reflux of contrast into the hepatic veins may reflect right heart dysfunction. 2. Persistent prominent left upper lobe cavitation with new left lower lobe airspace consolidation with air bronchograms. Progressive volume loss with mediastinal shift to the left. 3. Very small loculated right pleural effusion. 4. Small pericardial effusion. 5. Small perihepatic ascites fluid. Chest X-Ray 01/21/18 00:00 CONCLUSION: Left central line has been withdrawn slightly but tip is probably still within the azygos vein. Nasogastric tube has been placed, seen entering stomach. Chest X-Ray 01/21/18 00:00 CONCLUSION: Repositioning of left central line tip into the superior vena cava in good position. Head CT 01/21/18 00:00 CONCLUSION: 1. 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 . Venous Doppler Study 01/21/18 00:00 CONCLUSION: 1. The study is negative for bilateral lower extremity deep venous thrombosis. Chest X-Ray 01/21/18 10:09 CONCLUSION: Compared with January 18 there is an increase in basilar airspace disease and pleural effusions. Left IJ line tip extends cephalad, possibly in the superior vena cava or azygos vein. Endotracheal tube in good position. Chest X-Ray 01/22/18 00:00 CONCLUSION: 1. No significant interval change. 2. Stable tubes and lines. 3. Persistent prominent cavitary change in the left upper lobe with dense left lower lobe airspace consolidation and likely trace pleural effusion. 4. Persistent mild airspace consolidation in the right lung base. Chest X-Ray 01/22/18 06:00 CONCLUSION: Dense consolidation involving the left mid and lower lung. Some degree of left effusion is likely also present. Cavitary change seen in the left upper lung. Chronic interstitial disease seen throughout the right lung with some suspected focal pleural disease/effusion at the right base Chest X-Ray 01/23/18 06:00 CONCLUSION: Persistent consolidation or atelectasis involving the left mid and lower lung. Persistent cavitary change in the left upper lung. Chronic interstitial disease in the right lung. Suspected mild right pleural effusion. Objective Remarks: GENERAL: 62-year-old female, critically ill currently orotracheally intubated SKIN: Warm and dry. No rash HEAD: Atraumatic. Normocephalic. EYES: Pupils equal and round to members bilaterally and reactive. No scleral icterus. No injection or drainage. ENT: No nasal bleeding or discharge. Mucous membranes pink and moist. NECK: Trachea midline. No JVD. CARDIOVASCULAR: Tachycardic, RR. S1, S2 no S4 without murmur/click/gallops or rub RESPIRATORY: Diminished breath sounds throughout all left lung kinney anterior and posterior. No wheezing appreciated. GASTROINTESTINAL: Abdomen soft, non-tender, nondistended. Hypoactive bowel sounds are appreciated. MUSCULOSKELETAL: Extremities without significant peripheral edema. No obvious deformities. NEUROLOGICAL: Arousable on the ventilator. No gag or cough. No corneal reflex. Assessment and Plan - Assessment and Plan Plan: Neuro/Psych: Chronic benzodiazepine use Anxiety disorder NOS Subacute right cerebellar, right occipital and right medial temporal CVA Currently on fentanyl drip at 100 mcg an hour for sedation/analgesia while intubated allergy to morphine is documented as fatigue. Goal of RA SS -2 Daily sedation vacation Acetaminophen 650 by tube every 6 hours as needed fever Continue mirtazapine 45 mg at night/home medication for depression/anxiety. Holding diazepam 5 mg 3 times daily/home medication Holding tizanidine 4 mg 2 times daily CV: Cardiogenic/septic shock Sinus tachycardia Hyperlipidemia Elevated troponin likely type type II non-STEMI demand ischemia Acute systolic heart failure ejection fraction less than 20% Lactic acidosis Currently on norepinephrine drip at 8 mcg/min and vasopressin 0.04 units an minute to maintain mean arterial pressure greater than equal 65. Trop 2.55. Recheck in a.m. follow trends Continue normal saline at 50 cc an hour We will hold simvastatin 20 mg daily/home medication due to elevated transaminases Dr. Cline following. Believes component of beriberi syndrome could be contributed. Started on thiamine/multivitamin Continue heparin drip and baby aspirin 81 mg daily. Unable to provide beta- ashley or DANIEL inhibitor due to hypotension/shock Continue heparin drip currently at 600 units an hour 2D echocardiogram revealed EF less than 20%. Global LV dysfunction. No RV strain appreciated. Essentially normal. Trending upward currently 6.1. Follow serially. Not ideal candidate for inotropic for clearance. Resp: Acute respiratory failure History of COPD Left submassive PE [facility] 16/500/40 Ventilator bundle Albuterol/ipratropium aerosols every 4 hours with albuterol aerosols every 2 hours as needed for dyspnea Methylprednisolone succinate 40 mg IV twice daily Currently in budesonide/formoterol 160/4.5 2 inhalation twice daily. Continue via ventilator Pulmonary market research consultant with Dr. Noonan following CT pulmonary angiogram revealed left pulmonary artery all segments essentially occluded. Noted RV no strain appreciated. Left upper lobe cavitation. Left lower lobe pneumonia. Right loculated pleural effusion. Small pericardial effusion. Small amount of ascites. Heparin drip as above see discussion. GI: Hypoalbuminemia Elevated transaminases likely secondary to shock Hypoalbuminemia Currently holding Jevity 1.5 goal 35 cc an hour. Dietary consult agrees with this Lansoprazole for GI prophylaxis Docusate sodium/senna 1 tablet twice daily for bowel regimen : Cho catheter placement for accurate I's and O's in a critically ill patient. Check UA Endo: Hyperglycemia/acute TSH 9.48. Sliding scale insulin with Accu-Cheks to maintain euglycemia every 6 hours aspart insulin low regimen Free T3 low. Normal T4. Will start levothyroxine the next few days she is to Renal: Likely secondary to hypoperfusion Acute kidney injury Monitor urine output Accurate I's and O's BMP pending Heme: Normocytic anemia Leukocytosis Thrombocytopenia Monitor CBC daily. Follow trends. No indication for transfusion of blood products at this time ID: Community acquired pneumonia/sepsis Currently on cefepime day #6 start 01/18. Blood cultures 2 01/18 no growth to date. Negative urine Legionella pneumococcal antigens influenza negative. Bronchoscopy samples negative 8/ Add azithromycin and vancomycin day #3 Sputum, chlamydia, mycoplasma all ordered 01/21 MSK: Cachexia PT evaluate and treat. Weight gain encouraged FEN: Replace electrolytes as clinically indicated per ICU electrolyte protocol Access -Left IJ CVL day #3 placed 01/21. Right femoral arterial line day #2 placed 01/22 Prophylaxis -GI -lansoprazole - -DVT SCDs/heparin drip provides DVT prophylaxis 35 minutes critical care time D/W proxy. Poor outlook. Likely withdrawal of care today including extubation.
[2018-01-23] MEDS ORDERED: Hyoscyamine Liq Drops 0.125 MG/ML 15 ML Bottle SL ONE (12:12)
[2018-01-23] MEDS ORDERED: fentaNYL Citrate Inj 100 MCG/2 ML Ampul IV.PUSH ONE ×2 (12:12)
[2018-01-23] MEDS: Azithromycin Inj 500 MG in Sodium Chlor 0.9% Inj 250 ML IV.SIG SCH (12:20)
[2018-01-23 12:28] VITALS: TEMP 98.8
--- NOTE | 2018-01-23 12:30 | P.PNCA ---
Subjective Interval history: Intubated, not alert Physical Exam Vital signs: Vital Signs 01/22/18 13:00 01/22/18 14:59 01/22/18 16:00 Temperature 97.3 F L Pulse Rate 114 H 115 H Respiratory Rate 18 18 18 Blood Pressure 106/57 L Pulse Oximetry 97 01/22/18 20:00 01/22/18 21:56 01/23/18 00:00 Temperature 99.1 F 98.1 F Pulse Rate 132 H 128 H Respiratory Rate 26 H 28 H 19 Blood Pressure 101/55 L 91/48 L Pulse Oximetry 94 L 93 L 95 01/23/18 04:00 01/23/18 04:14 01/23/18 07:00 Temperature Pulse Rate 122 H 111 H Respiratory Rate 18 18 19 Blood Pressure 85/39 L Pulse Oximetry 94 L 94 L 01/23/18 08:00 01/23/18 09:00 01/23/18 11:00 Temperature 99.2 F Pulse Rate 112 H 112 H 101 H Respiratory Rate 18 18 Blood Pressure 78/45 L Pulse Oximetry 95 01/23/18 11:18 Temperature Pulse Rate Respiratory Rate 18 Blood Pressure Pulse Oximetry 95 Intake & Output 01/22/18 01/23/18 01/23/18 18:59 06:59 18:59 Intake Total 1643.5 / 1643.5 1110 / 1110 458.5 / 458.5 Output Total 150 / 150 100 / 100 Balance 1493.5 / 1493.5 1010 / 1010 458.5 / 458.5 Weight 49.4 kg Intake: IV 1359.5 / 1359.5 1110 / 1110 458.5 / 458.5 Versed Inj 50 mg In 50 ml @ 2 50 / 50 MG/HR 2 mls/hr IV.CONT TITRATE PRN Rx#:[id number] Levophed Inj 16 MG In NS Inj 250 / 250 234 ML @ 2 MCG/MIN 1.87 mls/hr IV.CONT TITRATE PRN Rx#: [id number] Azithromycin Inj 500 MG In NS 500 / 500 Inj 250 ML @ 250 mls/hr IV.SIG Q24H ANGELA Rx#:[id number] Maxipime Inj 2,000 MG In NS Inj 100 / 100 100 / 100 100 / 100 100 ML @ 200 mls/hr IV.SIG Q8H ANGELA Rx#:[id number] MVI-12 Inj 10 ML In NS Inj 1, 1010 / 1010 000 ML @ 50 mls/hr IV.SIG Q24H ANGELA Rx#:[id number] Thiamine Inj 100 MG In NS Inj 202 / 202 101 / 101 100 ML @ 100 mls/hr IV.SIG DAILY ANGELA Rx#:[id number] Vancomycin Inj 750 MG In NS Inj 257.5 / 257.5 257.5 / 257.5 250 ML @ 250 mls/hr IV.SIG Q12H ANGELA Rx#:[id number] Tube Feeding 234 / 234 0 / 0 Water Bolus Amount 50 / 50 0 / 0 Output: Urine 100 / 100 Urine Amount (Catheter) 150 / 150 Indwelling Urethral Catheter 150 / 150 Other: Date of Last Bowel Movement 01/22/18 01/23/18 01/22/18 # Bowel Movements 1 1 # Incontinent Bowel Movements 1 Narrative: On vent. Pressors off Chest decreased BS CV S1S2 tachy, no M Abd soft Ext: cold pulseless left hand/wrist - Urinary Catheter Management Indwelling Urethral Catheter Cath placed during this visit: no Reason for continuing: Acute urinary retention Assessment and Plan - Assessment (1) Left ventricular dysfunction Code(s): I51.9 - Heart disease, unspecified Status: Acute (2) Sepsis Code(s): A41.9 - Sepsis, unspecified organism Status: Acute (3) Hypotension Code(s): I95.9 - Hypotension, unspecified Status: Acute (4) Cachexia Code(s): R64 - Cachexia Status: Acute - Plan Patient off pressor support. Plan is to DC vent. I am signing off.
--- NOTE | 2018-01-23 15:47 | P.PN ---
Subjective Interval history: on the vent sedated dnr Physical Exam Vital signs: Vital Signs 01/22/18 16:00 01/22/18 20:00 01/22/18 21:56 Temperature 97.3 F L 99.1 F Pulse Rate 115 H 132 H Respiratory Rate 18 26 H 28 H Blood Pressure 106/57 L 101/55 L Pulse Oximetry 97 94 L 93 L 01/23/18 00:00 01/23/18 04:00 01/23/18 04:14 Temperature 98.1 F Pulse Rate 128 H 122 H Respiratory Rate 19 18 18 Blood Pressure 91/48 L 85/39 L Pulse Oximetry 95 94 L 94 L 01/23/18 07:00 01/23/18 08:00 01/23/18 09:00 Temperature 99.2 F Pulse Rate 111 H 112 H 112 H Respiratory Rate 19 18 Blood Pressure 78/45 L Pulse Oximetry 95 01/23/18 11:00 01/23/18 11:18 01/23/18 12:00 Temperature 98.8 F Pulse Rate 101 H 104 H Respiratory Rate 18 18 18 Blood Pressure 87/42 L Pulse Oximetry 95 95 01/23/18 13:41 01/23/18 13:42 Temperature Pulse Rate 114 H Respiratory Rate 18 18 Blood Pressure Pulse Oximetry 95 Intake & Output 01/22/18 01/23/18 01/23/18 18:59 06:59 18:59 Intake Total 1643.5 / 1643.5 1110 / 1110 458.5 / 458.5 Output Total 150 / 150 100 / 100 Balance 1493.5 / 1493.5 1010 / 1010 458.5 / 458.5 Weight 49.4 kg Intake: IV 1359.5 / 1359.5 1110 / 1110 458.5 / 458.5 Versed Inj 50 mg In 50 ml @ 2 50 / 50 MG/HR 2 mls/hr IV.CONT TITRATE PRN Rx#:[id number] Levophed Inj 16 MG In NS Inj 250 / 250 234 ML @ 2 MCG/MIN 1.87 mls/hr IV.CONT TITRATE PRN Rx#: [id number] Azithromycin Inj 500 MG In NS 500 / 500 Inj 250 ML @ 250 mls/hr IV.SIG Q24H ANGELA Rx#:[id number] Maxipime Inj 2,000 MG In NS Inj 100 / 100 100 / 100 100 / 100 100 ML @ 200 mls/hr IV.SIG Q8H ANGELA Rx#:[id number] MVI-12 Inj 10 ML In NS Inj 1, 1010 / 1010 000 ML @ 50 mls/hr IV.SIG Q24H ANGELA Rx#:[id number] Thiamine Inj 100 MG In NS Inj 202 / 202 101 / 101 100 ML @ 100 mls/hr IV.SIG DAILY ANGELA Rx#:[id number] Vancomycin Inj 750 MG In NS Inj 257.5 / 257.5 257.5 / 257.5 250 ML @ 250 mls/hr IV.SIG Q12H ANGELA Rx#:[id number] Tube Feeding 234 / 234 0 / 0 Water Bolus Amount 50 / 50 0 / 0 Output: Urine 100 / 100 Urine Amount (Catheter) 150 / 150 Indwelling Urethral Catheter 150 / 150 Other: Date of Last Bowel Movement 01/22/18 01/23/18 01/22/18 # Bowel Movements 1 1 # Incontinent Bowel Movements 1 Narrative: On vent. Pressors off Chest decreased BS CV S1S2 tachy, no M Abd soft Ext: cold pulseless left hand/wrist - Urinary Catheter Management Indwelling Urethral Catheter Cath placed during this visit: no Reason for continuing: Acute urinary retention Results - Labs CBC & Chem 7: 01/23/18 04:54 01/23/18 08:40 Laboratory Results - last 24 hr 01/22/18 01/22/18 01/22/18 17:30 17:53 17:56 WBC RBC Hgb Hct MCV MCH MCHC RDW Plt Count MPV Prelim Diff (Auto) Neut % (Auto) Lymph % (Auto) [place] % (Auto) Eos % (Auto) Baso % (Auto) Neut # (Auto) Lymph # (Auto) [place] # (Auto) Eos # (Auto) Baso # (Auto) WBC Differential Seg Neuts % (Manual) Band Neuts % (Manual) Lymphocytes % (Manual) Monocytes % (Manual) Abs Neuts (Manual) Nucleated RBCs/100 WBC Differential Comment Toxic Granulation Platelet Estimate Platelet Morphology APTT 38.3 H Sodium Potassium Chloride Carbon Dioxide Anion Gap BUN Creatinine Estimated GFR POC Glucose 11 L* 213 H Random Glucose Lactic Acid Calcium Prot Corrected Calcium Phosphorus Magnesium Total Bilirubin AST ALT Alkaline Phosphatase Total Protein Albumin Vancomycin Trough 01/23/18 01/23/18 01/23/18 01:50 04:54 08:36 WBC 36.5 H RBC 3.49 L Hgb 9.7 L Hct 31.3 L MCV 89.7 MCH 27.9 MCHC 31.1 L RDW 16.6 Plt Count 109 L D MPV 8.8 Prelim Diff (Auto) Slide review pending Neut % (Auto) 94.4 H Lymph % (Auto) 2.3 L [place] % (Auto) 3.2 Eos % (Auto) 0.0 Baso % (Auto) 0.1 Neut # (Auto) 34.5 H Lymph # (Auto) 0.8 L [place] # (Auto) 1.2 H Eos # (Auto) 0.0 Baso # (Auto) 0.0 WBC Differential Manual diff final Seg Neuts % (Manual) 91 H Band Neuts % (Manual) 5 Lymphocytes % (Manual) 2 L Monocytes % (Manual) 2 Abs Neuts (Manual) 35.0 H Nucleated RBCs/100 WBC 1 H Differential Comment . Toxic Granulation 2+ H Platelet Estimate Low L Platelet Morphology Normal APTT Sodium Potassium Chloride Carbon Dioxide Anion Gap BUN Creatinine Estimated GFR POC Glucose 157 H Random Glucose Lactic Acid 1.7 Calcium Prot Corrected Calcium Phosphorus Magnesium Total Bilirubin AST ALT Alkaline Phosphatase Total Protein Albumin Vancomycin Trough 01/23/18 01/23/18 08:40 12:12 WBC RBC Hgb Hct MCV MCH MCHC RDW Plt Count MPV Prelim Diff (Auto) Neut % (Auto) Lymph % (Auto) [place] % (Auto) Eos % (Auto) Baso % (Auto) Neut # (Auto) Lymph # (Auto) [place] # (Auto) Eos # (Auto) Baso # (Auto) WBC Differential Seg Neuts % (Manual) Band Neuts % (Manual) Lymphocytes % (Manual) Monocytes % (Manual) Abs Neuts (Manual) Nucleated RBCs/100 WBC Differential Comment Toxic Granulation Platelet Estimate Platelet Morphology APTT Sodium 146 H Potassium 3.9 Chloride 117 H Carbon Dioxide 20.6 L Anion Gap 8 BUN 36 H Creatinine 1.38 H Estimated GFR 39 L POC Glucose 142 H Random Glucose 138 H Lactic Acid Calcium 7.0 L* Prot Corrected Calcium 8.4 L Phosphorus 2.5 D Magnesium 2.0 Total Bilirubin 0.6 AST 5641 H ALT 3314 H Alkaline Phosphatase 99 Total Protein 4.5 L D Albumin 1.8 L Vancomycin Trough 23.0 H Microbiology 01/18/18 11:02 Blood - Peripheral Aerobic Blood Culture - Final No growth in 5 days 01/18/18 11:02 Blood - Peripheral Anaerobic Blood Culture - Final No growth in 5 days 01/18/18 11:07 Blood - Peripheral Aerobic Blood Culture - Final No growth in 5 days 01/18/18 11:07 Blood - Peripheral Anaerobic Blood Culture - Final No growth in 5 days 01/21/18 11:35 Urine - Catheterized Urine Streptococcus pneumoniae Antigen ( M - Final Presumptive negative for streptococcus pneumoniae antigen, suggesting no current or recent infection. Infection due to Streptococcus pneumoniae cannot be ruled out since the antigen present in the sample may be below the detection limit of the test. 01/21/18 11:35 Urine - Catheterized Urine Legionella Antigen - Final Presumptive negative for Legionella pneumophila serogroup 1 antigen in urine, suggesting no recent or recurrent infection. Infection due to Legionella cannot be ruled out since other serogroups and species may cause disease, antigen may not be present in urine in early infection, and the level of antigen present in the urine may be below the detection limit of the test. - Imaging Impressions Chest X-Ray 01/23/18 06:00 CONCLUSION: Persistent consolidation or atelectasis involving the left mid and lower lung. Persistent cavitary change in the left upper lung. Chronic interstitial disease in the right lung. Suspected mild right pleural effusion. Assessment and Plan - Plan ASSWESSMENT RESPIRATORY FAILURE SEPSIS/PNA BRONCH CULTURE AND CYTO NEGATIVE CHF EF 15% DNR PLAN VENT SUPPORT ANTIBX CT CHEST OUTLOOK POOR TO WITHDRAR LIFE SUPPORT ALL FAMILY AT BEDSIDE
[2018-01-23 16:18] VITALS: BP 103/52; PULSE 119; O2SAT 96
[2018-01-23] MEDS: fentaNYL Citrate Inj 100 MCG/2 ML Ampul IV.PUSH PRN (16:50)
--- NOTE | 2018-01-23 17:22 | P.DN ---
Discharge Sum: Prov - Provider Primary care physician: Connor Dunne MD Admitting clinician: Jaun Mayfield Attending physician on admission: Jaun Mayfield Consults: 01/18/18 14:25 Consult to Pulmonology Routine Consulting Provider: Melissa Torres Preferred Children[facility]S Nursery Assistant:: Melissa Torres Patient known to:: Melissa Torres Reason for Consultation: Patient known to you. COPD, PNA Notified:: Office Spoke with:: Meghan Date Notified:: 01/18/18 Time Notified:: 14:41 Ordering Provider: LORETO 01/19/18 09:42 HUB Only Consult Order Routine Consulting Provider: Joseph Ruiz 01/21/18 09:12 Consult to Acoustic Intelligence Specialist Stat Consulting Provider: Tavares Melchor For STAT consult, spoke directly to:: Jill Reason for Consultation: Respiratory failure likely requiring intubation Notified:: Service Spoke with:: salvador Date Notified:: 01/21/18 Time Notified:: 09:22 Ordering Provider: ALEKS 01/21/18 11:06 HUB Only Consult Order Routine Consulting Provider: Joseph Ruiz 01/21/18 12:59 Consult to Cardiology Routine Consulting Provider: Fan Cline Does the patient have a Jde Developer who follows them?: Yes Preferred Lactation Specialist:: Parveen Alexandre Reason for Consultation: Acute respiratory failure, ejection fraction 15%. Assistance with cardiac management. Notified:: Office Spoke with:: MICHELLE Date Notified:: 01/21/18 Time Notified:: 13:19 Ordering Provider: MIGUE 01/22/18 21:17 Consult to Palliative Care Routine Consulting Provider: Adria Jones Reason for Consultation: Family has elected DNR/ Comfort measures. 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 Goal of RA SS -2 Daily sedation vacation Acetaminophen 650 by tube every 6 hours as needed fever Continue mirtazapine 45 mg at night/home medication for depression/anxiety. Holding diazepam 5 mg 3 times daily/home medication Holding tizanidine 4 mg 2 times daily CV: Cardiogenic/septic shock Sinus tachycardia Hyperlipidemia Elevated troponin likely type type II non-STEMI demand ischemia Acute systolic heart failure ejection fraction less than 20% Lactic acidosis Currently on norepinephrine drip at 8 mcg/min and vasopressin 0.04 units an minute to maintain mean arterial pressure greater than equal 65. Trop 2.55. Recheck in a.m. follow trends Continue normal saline at 50 cc an hour We will hold simvastatin 20 mg daily/home medication due to elevated transaminases Dr. Cline following. Believes component of beriberi syndrome could be contributed. Started on thiamine/multivitamin Continue heparin drip and baby aspirin 81 mg daily. Unable to provide beta- ashley or DANIEL inhibitor due to hypotension/shock Continue heparin drip currently at 600 units an hour 2D echocardiogram revealed EF less than 20%. Global LV dysfunction. No RV strain appreciated. Essentially normal. Trending upward currently 6.1. Follow serially. Not ideal candidate for inotropic for clearance. Resp: Acute respiratory failure History of COPD Left submassive PE PRVC 16/500/40 Ventilator bundle Albuterol/ipratropium aerosols every 4 hours with albuterol aerosols every 2 hours as needed for dyspnea Methylprednisolone succinate 40 mg IV twice daily Currently in budesonide/formoterol 160/4.5 2 inhalation twice daily. Continue via ventilator Pulmonary franchise field consultant with Dr. Noonan following CT pulmonary angiogram revealed left pulmonary artery all segments essentially occluded. Noted RV no strain appreciated. Left upper lobe cavitation. Left lower lobe pneumonia. Right loculated pleural effusion. Small pericardial effusion. Small amount of ascites. Heparin drip as above see discussion. GI: Hypoalbuminemia Elevated transaminases likely secondary to shock Hypoalbuminemia Currently holding Jevity 1.5 goal 35 cc an hour. Dietary consult agrees with this Lansoprazole for GI prophylaxis Docusate sodium/senna 1 tablet twice daily for bowel regimen : Cho catheter placement for accurate I's and O's in a critically ill patient. Check UA Endo: Hyperglycemia/acute TSH 9.48. Sliding scale insulin with Accu-Cheks to maintain euglycemia every 6 hours aspart insulin low regimen Free T3 low. Normal T4. Will start levothyroxine the next few days she is to Renal: Likely secondary to hypoperfusion Acute kidney injury Monitor urine output Accurate I's and O's BMP pending Heme: Normocytic anemia Leukocytosis Thrombocytopenia Monitor CBC daily. Follow trends. No indication for transfusion of blood products at this time ID: Community acquired pneumonia/sepsis Currently on cefepime day #6 start 01/18. Blood cultures 2 01/18 no growth to date. Negative urine Legionella pneumococcal antigens influenza negative. Bronchoscopy samples negative 01/18 Add azithromycin and vancomycin day #3 Sputum, chlamydia, mycoplasma all ordered 01/21 MSK: Cachexia PT evaluate and treat. Weight gain encouraged FEN: Replace electrolytes as clinically indicated per ICU electrolyte protocol Access -Left IJ CVL day #3 placed 01/21. Right femoral arterial line day #2 placed 01/22 Prophylaxis -GI -lansoprazole - -DVT SCDs/heparin drip provides DVT prophylaxis 35 minutes critical care time D/W proxy. Very poor outlook. Dr. Torres cosigned articles for withdrawal of care self extubation. Time of 1716 - Additional Data Confirmation of as documented by pronouncing clinician: no pulse, no respirations, no heart sounds, pupils fixed and dilated, other Family: at bedside Attending physician: Tavares Melchor MD
== END 2018-01-23 17:17 | disposition expired ==
LOC: NEPC 10:25 → NEDA 13:10 → N04 15:33 → HIMC 01-21 09:25
PROVIDERS: ADMIT Internal Medicine Critical Care Medicine; ATTEND Internal Medicine Critical Care Medicine